=== PATIENT | male | born 1960 | race Caucasian/White ===

== ENCOUNTER → 2016-09-23 | Outpatient (CLI) | payer MEDICAID ==
[~2016-09-23] MED LIST: ASPI-587 PO; GADOBUTROL 7.5 MMOL/7.5 ML (GADAVIST) VIAL IV ONE; LISI20TA PO; SIMV20TA3 PO
--- OUTSIDE RECORDS SUMMARY | 2016-09-23 07:02 | XMS REPORT | Continuity of Care Document ---
Author Author [facility] Organization [facility] Address Unknown Phone Unavailable Care Team Providers Care Front Office Attendant Name Role Phone [facility] OF PCP Insurance Providers Payer Name Policy Number Subscriber Name [facility] [id number] Praveen Evans 18 Self / Same As Patient Advance Directives Directive Response Recorded Date/Time Advance Directives No 09/24/14 9:30am Health Care Power of Acid Polymerization Operator No 09/24/14 9:30am Organ Donor No 09/24/14 9:30am Resuscitation Status Full Code 09/24/14 9:30am Chief Complaint and Reason for Visit Chief Complaint TIA CHEST PAIN Reason for Visit Transient cerebral ischemia Chest pain Problems Medical Problems Problem Onset Date Status Transient cerebral ischemia Unknown Active Chest pain Unknown Active Medications Medication Dose Route Sig Days/Qty Instructions Order Date Discontinued Date Status Lisinopril (Zestril) 20 Mg PO 1800 08-04-14 #30 LAST FILLED 09/24/14 Active Simvastatin 20 Mg PO 1800 09/24/14 Active Aspirin 81 Mg PO DAILY 30 Days 09/26/14 Active Social History Social History Problem Response Recorded Date/Time Alcohol Use Past History 09/24/2014 9:30am Recreational Drug Use No 09/24/2014 9:30am Recent Foreign Travel No 09/24/2014 9:30am Recent Infectious Disease Exposure No 09/24/2014 9:30am Hospitalization with Isolation Denies 09/26/2014 4:00pm Smoking Status Current Everyday Smoker 09/24/2014 9:30am Query Response Start Date Stop Date Smoking Status Current Everyday Smoker Hospital Discharge Instructions Patient Instructions Physician Instructions Goal/Follow Up Appt: Follow up with Estephania Garcia APRN at [facility] in 1 week You will need an appt. with Neurologist to further evaluate your neurological findings from [place]. Discharge Diet: Low Fat/Low Cholesterol Plan of Care Discharge Date 09/26/14 1:08pm Disposition 30 STILL A PATIENT Instructions/Education Provided Chest Pain (DC) Chronic Hypertension (DC) Peripheral Neuropathy (GEN) Forms Provided PDI Medical Prescriptions See Medications Section Referrals ESTEPHANIA GARCIA APRN (Unspecified) 1 Week Address: [address] [place] [id number] Reason(s) for Referral: Follow up with Estephania Garcia APRN at [facility] in 1 week. JASMIN OSWALD MD (Unspecified) 10/10/14 Address: [address] [place] [address] [place] [address] Reason(s) for Referral: Friday, October 10, 2014 at 2:00 PM Functional Status Query Response Date Recorded Patient Orientation Person Place Time Situation September 26, 2014 4:00pm Comprehension Ability Understands Concepts September 26, 2014 11:00am Allergies, Adverse Reactions, Alerts Allergen Type Severity Reaction Status Last Updated pregabalin ([id number]) Allergy Unknown Active 09/24/14 Immunizations Name Given Type Date of Influenza Vaccine 09/25/14 Historical Tetanus Booster (TDap) More than 5yrs Historical influenza, split (incl. purified surface antigen) 09/25/14 Administered influenza, split (incl. purified surface antigen) 09/25/14 Administered Vital Signs Acute Vital Signs Vital Response Date/Time Temperature (Fahrenheit) 99.4 degrees F (97.6 - 99.5) Temperature (Calculated Celsius) 37.02695 degrees C (36.4 - 37.5) Temperature Source Temporal Pulse Rate (adult) 75 bpm (60 - 90) Respiratory Rate 20 bpm (12 - 24) O2 Sat by Pulse Oximetry 98 % (88 - 100) Blood Pressure 125/74 mm Hg Pain Pain Intensity 4 Pain Pain Intensity 7 Height (Feet) 6 feet Height (Inches) 0.00 inches Height (Calculated Centimeters) 182.709182 cm Weight (Pounds) 170 pounds Weight (Calculated Grams) 11581.704 gm Weight (Calculated Kilograms) 77.940299 kilograms Calculated BMI 23.05 Results Laboratory Results Test Name Result Units Flags Reference Collection Date/Time Result Date/ Time Comments White Blood Count 10.2 10^3/uL 4.3-11.0 09/24/2014 7:08am 09/24/2014 7: 18am Red Blood Count 4.97 10^6/uL 4.35-5.85 09/24/2014 7:08am 09/24/2014 7: 18am Hemoglobin 15.9 G/DL 13.3-17.7 09/24/2014 7:08am 09/24/2014 7:18am Hematocrit 45 % 40-54 09/24/2014 7:08am 09/24/2014 7:18am Mean Corpuscular Volume 90 FL 80-99 09/24/2014 7:08am 09/24/2014 7: 18am Mean Corpuscular Hemoglobin 32 PG 25-34 09/24/2014 7:08am 09/24/2014 7: 18am Mean Corpuscular Hemoglobin Concent 36 G/DL 32-36 09/24/2014 7:08am 7:18am Red Cell Distribution Width 12.9 % 10.0-14.5 09/24/2014 7:08am 2014 7:18am Platelet Count 168 10^3/uL 130-400 09/24/2014 7:08am 09/24/2014 7:18am Mean Platelet Volume 10.4 FL 7.4-10.4 09/24/2014 7:08am 09/24/2014 7: 18am Neutrophils (%) (Auto) 58 % 42-75 09/24/2014 7:08am 09/24/2014 7:18am Lymphocytes (%) (Auto) 30 % 12-44 09/24/2014 7:08am 09/24/2014 7:18am Monocytes (%) (Auto) 9 % 0-12 09/24/2014 7:08am 09/24/2014 7:18am Eosinophils (%) (Auto) 3 % 0-10 09/24/2014 7:08am 09/24/2014 7:18am Basophils (%) (Auto) 0 % 0-10 09/24/2014 7:08am 09/24/2014 7:18am Neutrophils # (Auto) 5.9 X 10^3 1.8-7.8 09/24/2014 7:0809/24/2014 7: 18am Lymphocytes # (Auto) 3.0 X 10^3 1.0-4.0 09/24/2014 7:08am 09/24/2014 7: 18am Monocytes # (Auto) 0.9 X 10^3 0.0-1.0 09/24/2014 7:0809/24/2014 7: 18am Eosinophils # (Auto) 0.3 10^3/uL 0.0-0.3 09/24/2014 7:08am 09/24/2014 7 :18am Basophils # (Auto) 0.0 10^3/uL 0.0-0.1 09/24/2014 7:08am 09/24/2014 7: 18am Prothrombin Time 12.4 SEC 12.2-14.7 09/24/2014 7:08am 09/24/2014 7: 32am INR Comment 0.9 0.8-1.4 09/24/2014 7:0809/24/2014 7:32am INTERPRETIVE DATA SUGGESTED THERAPEUTIC RANGE FOR INR'S: VENOUS THROMBOSIS, PULMONARY EMBOLISM, OR PREVENTION OF SYSTEMIC EMBOLISM (EG. IN ATRIAL FIBRILLATION): 2.0 - 3.0 MECHANICAL PROSTHETIC HEART VALVES: 2.5 - 3.5* *NOTE: INR'S UP TO 4.5 MAY BE NECESSARY IN SELECTED GROUPS OF HIGH RISK PATIENTS. [place] [place] [employer] CONSENSUS CONFERENCE ON ANTITHROMBOTIC THERAPY (2000). Activated Partial Thromboplast Time 32 SEC 24-35 09/24/2014 7:08 7:33am D-Dimer 0.42 UG/ML 0.00-0.49 09/24/2014 7:0809/24/2014 7:35am Urine Color YELLOW 09/24/2014 8:04am 09/24/2014 8:28am Urine Clarity CLEAR 09/24/2014 8:04am 09/24/2014 8:28am Urine pH 7 5-9 09/24/2014 8:04am 09/24/2014 8:28am Urine Specific [place] 1.010 * 1.016-1.022 09/24/2014 8:04am 2014 8:28am Urine Protein NEGATIVE NEGATIVE 09/24/2014 8:04am 09/24/2014 8:28am Urine Glucose (UA) NEGATIVE NEGATIVE 09/24/2014 8:04am 09/24/2014 8: 28am Urine RBC (Auto) NEGATIVE NEGATIVE 09/24/2014 8:04am 09/24/2014 8: 28am Urine Ketones NEGATIVE NEGATIVE 09/24/2014 8:04am 09/24/2014 8:28am Urine Nitrite NEGATIVE NEGATIVE 09/24/2014 8:04am 09/24/2014 8:28am Urine Bilirubin NEGATIVE NEGATIVE 09/24/2014 8:04am 09/24/2014 8: 28am Urine Urobilinogen NORMAL MG/DL NORMAL 09/24/2014 8:04am 09/24/2014 8: 28am Urine Leukocyte Esterase NEGATIVE NEGATIVE 09/24/2014 8:04am 2014 8:28am Urine RBC NONE /HPF 09/24/2014 8:04am 09/24/2014 8:28am Urine WBC NONE /HPF 09/24/2014 8:04am 09/24/2014 8:28am Urine Bacteria NONE /HPF 09/24/2014 8:04am 09/24/2014 8:28am Urine Squamous Epithelial Cells RARE /HPF 09/24/2014 8:04am 2014 8:28am Urine Crystals NONE /LPF 09/24/2014 8:04am 09/24/2014 8:28am Urine Casts NONE /LPF 09/24/2014 8:04am 09/24/2014 8:28am Urine Mucus NEGATIVE /LPF 09/24/2014 8:04am 09/24/2014 8:28am Urine Culture Indicated NO 09/24/2014 8:04am 09/24/2014 8:28am Sodium Level 142 MMOL/L 135-145 09/25/2014 4:21am 09/25/2014 4:51am Potassium Level 4.2 MMOL/L 3.6-5.0 09/25/2014 4:2109/25/2014 4:51am Chloride Level 109 MMOL/L H 98-107 09/25/2014 4:09/25/2014 4:51am Carbon Dioxide Level 26 MMOL/L 21-32 09/25/2014 4:09/25/2014 4: 51am Blood Urea Nitrogen 8 MG/DL 7-18 09/25/2014 4:09/25/2014 4:51am Creatinine 0.81 MG/DL 0.60-1.30 09/25/2014 4:09/25/2014 4:51am BUN/Creatinine Ratio 10 09/25/2014 4:09/25/2014 4:51am Estimat Glomerular Filtration Rate > 60 09/25/2014 4:2014 4:51am GFR INTERPRETIVE DATA UNITS FOR ESTIMATED GFR (eGFR): mL/min/1.73 M2 REFERENCE RANGE FOR ESTIMATED GFR (eGFR) eGFR NORMAL eGFR >60 MODERATELY DECREASED eGFR 30-59 SEVERLY DECREASED eGFR 15-29 KIDNEY FAILURE <15 (OR DIALYSIS) Glucose Level 84 MG/DL 70-105 09/25/2014 4:09/25/2014 4:51am Glucometer 94 MG/DL 70-110 09/24/2014 7:09/24/2014 7:35am Calcium Level 8.7 MG/DL 8.5-10.1 09/25/2014 4:09/25/2014 4:51am Total Bilirubin 0.3 MG/DL 0.1-1.0 09/25/2014 4:09/25/2014 4:51am Alkaline Phosphatase 81 U/L 40-136 09/25/2014 4:09/25/2014 4:51am Aspartate Amino Transf (AST/SGOT) 13 U/L 5-34 09/25/2014 4:2014 4:51am Alanine Aminotransferase (ALT/SGPT) 9 U/L 0-55 09/25/2014 4:2014 4:51am Troponin I < 0.30 NG/ML <0.30 09/24/2014 7:0809/24/2014 7:52am Troponin I < 0.30 NG/ML <0.30 09/24/2014 1:07pm 09/24/2014 1:39pm Total Protein 6.1 G/DL L 6.4-8.2 09/25/2014 4:21am 09/25/2014 4:51am Albumin 3.6 G/DL 3.2-4.5 09/25/2014 4:21am 09/25/2014 4:51am Procedures Procedure Status Date Provider(s) Tracing only of electrocardiogram completed 09/24/14 JF ROBERTSON MD Color Doppler echocardiography completed 09/24/14 ELVIS MANRIQUE Tracing only of electrocardiogram completed 09/26/14 CINDY MOYA MD Encounters Encounter Location Date/Time Discharged Inpatient Via [facility] 09/24/14 9:19am Recent Diagnosis Transient cerebral ischemia Chest pain
[2016-09-23 07:28] LABS: ANION GAP 11 MMOL/L (5-14); BLOOD UREA NITROGEN 13 MG/DL (7-18); BUN/CREATININE RATIO 15; CARBON DIOXIDE 25 MMOL/L (21-32); CHLORIDE 103 MMOL/L (98-107); CREATININE SERUM 0.88 MG/DL (0.60-1.30); GFR ESTIMATED > 60; GLUCOSE 97 MG/DL (70-105); POTASSIUM 3.9 MMOL/L (3.6-5.0); SODIUM 139 MMOL/L (135-145)
--- NOTE | 2016-09-23 14:37 | Diagnostic Imaging Report ---
PROCEDURE: MR imaging of the brain with and without contrast. TECHNIQUE: Multiplanar, multisequence MR imaging of the brain was performed with and without contrast. INDICATION: Peripheral neuropathy. 7 mL of Gadovist is administered intravenously. FINDINGS: There is no diffusion restriction to suggest an acute infarct or other diffusion abnormality. Similar to 09/25/2014 exam, there are mild frontoparietal brain atrophy changes slightly more than expected for the patient's age. This does not appear to have changed from the previous exam, however, perhaps related to normal variation. There are stable mild periventricular deep white matter T2 hyperintense lesions subcentimeter in size with no associated mass effect or contrast enhancement. This is suggestive of chronic microvascular ischemic changes. There is no enhancing mass. There is no hydrocephalus. No extra-axial fluid collection seen. The central vascular flow voids appear grossly unremarkable. The internal auditory canals and inner ear structures appear unremarkable. The pituitary gland is normal in size. No hypothalamic mass. No pineal region mass. 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 The foramen magnum and visualized portions of the upper cervical canal are widely patent. There is minimal mucosal thickening along the ethmoidal air cells and mild mucosal thickening is the nasal cavity. IMPRESSION: 1. Nonspecific subcentimeter periventricular and deep white matter T2 hyperintense lesions without enhancement unchanged from 2015 exam, which may relate to early manifestation of chronic microvascular ischemic changes. No acute infarct. No enhancing mass. 2. Unchanged mild atrophy of the frontoparietal region bilaterally, slightly more than expected for the patient's age. This could be a normal variant, however. 3. 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 Dictated by: Dictated on workstation # [id number]
== END ==
LOC: RAD 06:58
PROVIDERS: ATTEND Nurse Practitioner Community Health
DX: G45.9 Transient cerebral ischemic attack, unspecified (principal)
CPT/HCPCS: 36415; 70553; 80048

== ENCOUNTER → 2017-02-06 | Outpatient (CLI) | payer MEDICAID ==
[~2017-02-06] MED LIST changes: -GADOBUTROL 7.5 MMOL/7.5 ML (GADAVIST) VIAL IV ONE
--- NOTE | 2017-02-06 12:52 | Diagnostic Imaging Report ---
PROCEDURE: US Thyroid. TECHNIQUE: Multiple real-time grayscale images were obtained of the thyroid in various projections. INDICATION: Enlarged thyroid gland on physical exam. COMPARISON: None. DISCUSSION: The thyroid gland appears normal in echotexture and size bilaterally with normal color Doppler blood flow. The right thyroid measures 4.5 x 2.2 x 1.6 cm. Left thyroid measures 4.2 x 1.8 x 1.6 cm. No discrete nodule is identified. No abnormal adjacent lymph nodes identified. IMPRESSION: 1. Normal sonographic appearance of the thyroid gland. Dictated by: Dictated on workstation # [id number]
== END ==
LOC: RAD 12:28
PROVIDERS: ATTEND Nurse Practitioner Community Health
DX: E04.9 Nontoxic goiter, unspecified (principal)
CPT/HCPCS: 76536

== ENCOUNTER 2018-10-09 06:21 | Outpatient (CLI) | payer MEDICAID ==
[~2018-10-09] VITALS: Ht 182.9 cm; Wt 77.1 kg
[2018-10-09] MEDS ORDERED: IBUP-1780 PO (13:53)
[2018-10-09] MEDS ORDERED: FENT-64 TD (13:53)
[2018-10-09] MEDS ORDERED: TEMA15CA6 PO (13:53)
[2018-10-09] MEDS ORDERED: TIZA4CAP8 PO (13:53)
[2018-10-09] MEDS ORDERED: RT-ALBUINH IH (13:53)
== END 2018-10-09 13:57 | disposition home or self-care (01) ==
LOC: PREOP 06:21
PROVIDERS: ATTEND Surgery
DX: Z01.818 Encounter for other preprocedural examination (principal)

== ENCOUNTER 2018-10-16 08:45 | Day surgery (SDC) | payer MEDICAID ==
[~2018-10-16] VITALS: Ht 182.9 cm; Wt 77.1 kg
[~2018-10-16 08:45] MED LIST changes: +FENT-64 TD; +IBUP-1780 PO; +RT-ALBUINH IH; +TEMA15CA6 PO; +TIZA4CAP8 PO
[2018-10-16] MEDS ORDERED: LACTATED RINGERS 1,000 ML IV ONE (08:49)
[2018-10-16] MEDS ORDERED: LACTATED RINGERS 1,000 ML IV STA (08:52)
[2018-10-16 08:55] VITALS: BP 175/71
--- OUTSIDE RECORDS SUMMARY | 2018-10-16 08:57 | XMS REPORT ---
Author Author RADHIKA CERVANTES Organization [facility] Address [address] [place] [address] Care Team Providers Care Bundle Clerk Name Role Phone RADHIKA CERVANTES Unavailable PROBLEMS Type Condition ICD9-CM Code QAA58-DS Code Onset Dates Condition Status SNOMED Code Problem Chronic pain G89.29 Active 75717412 Problem Primary insomnia F51.01 Active 1342345 Problem Insomnia G47.00 Active 140710625 Problem Other emphysema J43.8 Active 33607323 Problem Benign prostatic hyperplasia with lower urinary tract symptoms N40.1 Active 205480384 Problem Goiter E04.9 Active 4850993 Problem Transient cerebral ischemia, unspecified type G45.9 Active 403347206 Problem Numbness of left hand R20.0 Active 943385287 Problem Gastro-esophageal reflux disease without esophagitis K21.9 Active 121226169 Problem Other headache syndrome G44.89 Active 074999644 Problem Glaucoma of both eyes, unspecified glaucoma H40.9 Active 49560028 Problem Eye exam, routine Z01.00 Active 674624262 Problem Other insomnia G47.09 Active 473625750 Problem Personal history of transient ischemic attack (TIA), 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 Active 085694741 Problem Hyperlipidemia E78.5 Active 84318713 Problem Polyneuropathy G62.9 Active 47722588 Problem Leg cramps R25.2 Active 130693371 Problem Essential (primary) hypertension I10 Active 62301590 Problem Stye H00.019 Active 5895692 ALLERGIES Substance Reaction Event Type Date Status Lyrica Leg swelling Drug Allergy Jun, Active ENCOUNTERS Encounter Location Date Diagnosis [facility] [address] [facility] [id number] [address] Jul, [facility] [address] [facility] [id number] [address] Jun, Enlarged prostate with lower urinary tract symptoms N40.1 ; Anuria R34 ; Leg cramps R25.2 ; Encounter for immunization Z23 ; Other chronic pain G89.29 ; Primary insomnia F51.01 and Other emphysema J43.8 [facility] [address] [place] [id number] [place] [address] 23953- 9603 May, Chronic pain G89.29 [place] [address] [address]- [address] Apr, Chronic pain G89.29 [place] [address] [address]64- 3609 Mar, Chronic pain G89.29 [place] [address] 25526- 8753 Feb, Chronic pain G89.29 [place] [address] 45[address]- 6883 Jan, Polyneuropathy G62.9 ; Chronic pain G89.29 ; Essential ( primary) hypertension I10 ; Goiter E04.9 ; Gastro-esophageal reflux disease without esophagitis K21.9 ; Hyperlipidemia E78.5 ; Benign prostatic hyperplasia with lower urinary tract symptoms N40.1 and Other retention of urine R33.8 [place] [address] [place] [id number] [place] [address] 71628- 4442 Jan, Chronic pain G89.29 [place] [address] [address]17- 2867 Dec, Chronic pain G89.29 [place] [address] 09971- 5804 November, Chronic pain G89.29 [place] [address] 38071- 4857 Oct, Chronic pain G89.29 [place] [address] 79860- 5647 Oct, Chronic pain G89.29 [facility] [id number] [place] [address] 13838- 4687 Sep, Chronic pain G89.29 [facility] [id number] [place] [address] Sep, Polyneuropathy G62.9 ; Chronic pain G89.29 and Gastro- esophageal reflux disease without esophagitis K21.9 [facility] [address] [id number] [place] [address] 87055- 9674 Sep, Chronic pain G89.29 [facility] [id number] [place] [address] 72289- 6391 Jul, [place] [address] [place] [id number] [place] [address] 05840- 6738 Jul, Chronic pain G89.29 ; Polyneuropathy G62.9 and Numbness of left hand R20.0 [place] [address] [place] [id number] [place] [address] 80515- 6622 Jul, Chronic pain G89.29 ; Polyneuropathy G62.9 ; Gastro- esophageal reflux disease without esophagitis K21.9 ; Numbness of left hand R20.0 and Primary insomnia F51.01 [facility] [id number] [place] [address] 91340- 4639 Jul, Chronic pain G89.29 [place] [address] [place] [id number] [place] [address] 77110- 5281 Jun, Chronic pain G89.29 [facility] [id number] [place] [address] 74456- 6928 May, Chronic pain G89.29 [facility] [id number] [place] [address] 35522- 9593 Apr, Chronic pain G89.29 [facility] [id number] [place] [address] 83847- 3488 Apr, Chronic pain G89.29 and Polyneuropathy G62.9 [facility] [id number] [place] [address] 17392 2543 Mar, Chronic pain G89.29 [facility] [address] [address] 2546 Feb, Chronic pain G89.29 [facility] [id number] [place] [address] 85686 2546 Feb, Chronic pain G89.29 [facility] [address] [address] 2546 Jan, Goiter E04.9 [facility] [address] 66339- 9239 Jan, Chronic pain G89.29 ; Hyperlipidemia E78.5 ; Essential ( primary) hypertension I10 ; Anuria R34 and Goiter E04.9 [facility] [address] 79521- 1156 Jan, Chronic pain G89.29 [facility] [id number] [place] [address] 90147- 2244 November, Chronic pain G89.29 [facility] [id number] [place] [address] 16872 2549 November, [facility] [id number] [place] [address] 04461- 2095 Oct, Chronic pain G89.29 [facility] [id number] [place] [address] 98144 2540 Oct, Chronic pain G89.29 and Primary insomnia F51.01 [facility] [address] 69174- 8681 Sep, Chronic pain G89.29 [facility] [id number] [place] [address] 63271 2547 Sep, [facility] [address] [address] 1990 Sep, Chronic pain G89.29 and Primary insomnia F51.01 [place] [address] [place] [id number] [place] [address] 17353- 7759 Sep, [place] [address] [place] [id number] [place] [address] 80958- 0610 Sep, Transient cerebral ischemia, unspecified type G45.9 ; Acute midline low back pain without sciatica M54.5 and Seborrheic keratosis L82.1 [place] [address] [place] [id number] [place] [address] 82630- 1065 Sep, Chronic pain G89.29 [place] [address] 64619- 5433 Aug, Chronic pain G89.29 and Primary insomnia F51.01 [place] [address] [place] [id number] [place] [address] 13000- 3898 Aug, Chronic pain G89.29 [place] [address] [place] [id number] [place] [address] 94072- 2248 Jul, Chronic pain G89.29 and Primary insomnia F51.01 [place] [address] [place] [id number] [place] [address] 48255- 5458 Jul, Chronic pain G89.29 [place] [address] [place] [id number] [place] [address] 56788- 7649 Jun, Chronic pain G89.29 ; Essential (primary) hypertension I10 ; Polyneuropathy G62.9 ; Drug-induced constipation K59.03 and Primary insomnia F51.01 [place] [address] [place] [id number] [place] [address] 07281- 2955 Jun, Chronic pain G89.29 [place] [address] [place] [id number] [place] [address] 69028- 7059 Jun, [place] [address] [place] [id number] [place] [address] 58958- 5616 Jun, Insomnia G47.00 ; Chronic pain G89.29 and Seborrheic keratosis L82.1 [facility] [id number] [place] [address] 08542- 9324 Apr, Chronic pain G89.29 [facility] [id number] [place] [address] 73597- 5706 Mar, Chronic pain G89.29 [facility] [address] 77328- 7065 Feb, Chronic pain G89.29 [facility] [address] [address] [id number] [place] [address] 83202- 9896 Jan, Chronic pain G89.29 [facility] [address] [id number] [place] [address] 12691- 5780 Dec, [place] [address] 96827- 4362 Dec, Chronic pain G89.29 [facility] [id number] [place] [address] 91874- 5545 Dec, Other chronic pain G89.29 ; Hyperlipidemia E78.5 and Polyneuropathy G62.9 [place] [address] [id number] [place] [address] 07504- 6627 Dec, [place] [address] [address] [id number] [place] [address] 30100- 4797 November, Chronic pain G89.29 [facility] [address] [id number] [place] [address] 51872- 6499 November, [place] [address] [address] [id number] [place] [address] 52412- 7052 November, Chronic pain G89.29 ; Stye H00.019 ; Insomnia G47.00 ; Leg cramps R25.2 and GERD (gastroesophageal reflux disease) K21.9 [place] [address] [place] [id number] [place] [address] 86928- 0678 Oct, Other chronic pain G89.29 [facility] [id number] [place] [address] 39690- 4769 Oct, Hyperlipidemia E78.5 [facility] [id number] [place] [address] 31 Sep, 2015 Essential (primary) hypertension I10 [facility] [id number] [place] [address] 24140- 5757 30 Sep, 2015 Other chronic pain G89.29 ; Polyneuropathy G62.9 ; Essential (primary) hypertension I10 and Personal history of transient ischemic attack (TIA), 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 [facility] [id number] [place] [address] 14363- 9731 Sep, [facility] [id number] [place] [address] 50683- 9062 Sep, [facility] [id number] [place] [address] 62053- 3682 Aug, [facility] [id number] [place] [address] 21906- 9946 Jul, [facility] [id number] [place] [address] 93181- 0506 Jul, [facility] [id number] [place] [address] 56954- 3135 Jun, Other chronic pain G89.29 and Gastroesophageal reflux disease, esophagitis presence not specified K21.9 [facility] [id number] [place] [address] 30332- 3483 May, Chronic pain syndrome 338.4 and Polyneuropathy G62.9 [facility] [id number] [place] [address] 95297- 7557 May, Enlarged prostate with lower urinary tract symptoms N40.1 ; Other retention of urine R33.8 and Peripheral polyneuropathy G62.9 [facility] [id number] [place] [address] 20606- 3156 Apr, [facility] [address] [address]- 2026 Mar, [facility] [address] [place] [address] 51632- 5396 Mar, Neuropathy 355.9 and Chronic pain 338.29 [facility] [id number] [place] [address] 79845- 2897 Feb, Neuropathy 355.9 and TIA (transient ischemic attack) 435.9 [facility] [address] [place] [address] 40793- 4590 Dec, Neuropathy 355.9 ; Chronic pain 338.29 ; Restless legs 333.94 ; Seborrheic keratoses 702.19 and GERD (gastroesophageal reflux disease) 530.81 [facility] [id number] [place] [address] 22957- 2753 Dec, [facility] [id number] [address]- 0194 Oct, [facility] [address] [place] [address] 50765- 6996 Oct, [facility] [address] Sep, [facility] [address] [address]- 2437 Sep, [facility] [address] [address]- 7042 Sep, [facility] [address] [place] [address]- 7712 Sep, [facility] [address] [place] [address]- [address] Aug, [facility] [address] [place] [address]- 3296 Aug, [facility] [id number] [address]- 1746 Jul, [facility] [id number] [address]- 4771 Jul, [facility] [address] [place] [address]- 9258 Jul, [facility] [address] [address]- 9761 Jul, [facility] [address] [address]- 0030 Jul, [facility] [address] [place] [address] 05306- 9154 Jul, [facility] [address] [place] [address]- 4468 Jul, [facility] [address] [place] [address]- 8614 Jul, [facility] [address] [address]- 4069 Jun, [facility] [address] [address]- 0734 Jun, IMMUNIZATIONS Vaccine Route Administration Date Status FLULAVAL QUAD 0.5ML (6 MO AND UP) 2017 IM Intramuscular Jun 11, 2018 Administered SOCIAL HISTORY Never Assessed REASON FOR VISIT Pain management (chronic) KEILA Rucker PLAN OF CARE Activity Details Follow Up 4 Weeks Reason:pain mgmt VITAL SIGNS Height 73 in 2018-06-11 Weight 172.6 lbs 2018-06-11 Temperature 98.2 degrees Fahrenheit 2018-06-11 Heart Rate 88 bpm 2018-06-11 Respiratory Rate 20 2018-06-11 BMI 22.77 kg/m2 2018-06-11 Blood pressure systolic 164 mmHg 2018-06-11 Blood pressure diastolic 82 mmHg 2018-06-11 MEDICATIONS Medication Instructions Dosage Frequency Start Date End Date Duration Status Omeprazole 20 mg TAKE ONE CAPSULE BY MOUTH ONCE DAILY 90 Active Tizanidine HCl 6 MG Orally Three times a day 1 capsule as needed 8h Jun 28 days Active Wrist Splint/Cock-Up/Left L - as directed Jul, lifetime Not-Taking Temazepam 15 MG Orally Once a day 1 capsule at bedtime as needed 24h Jun 28 days Active Rollator Wheeled walker with seat for use while ambulating Jul, lifetime Active Ventolin HFA 108 (90 Base) MCG/ACT Inhalation every 6 hrs 2 puffs as needed 6h Jun, Active Ibuprofen 800 MG Orally Three times a day 1 tablet with food or milk as needed 8h Jun, 28 days Active RESULTS No Results PROCEDURES Procedure Date Ordered Result Body Site FLULAVAL QUAD 0.5ML (6 MO AND UP) 2017Jun 11, 2018 SINGLE IMMUNIZATION ADMIN Jun 11, 2018 INSTRUCTIONS MEDICATIONS ADMINISTERED No Known Medications MEDICAL (GENERAL) HISTORY Type Description Date Medical History reported hx TIA/CVA - given TPA 08/2013 - MRI (08/2013, 09/2014 ) has only shown small vessel disease Medical History hx of pelvic fracture 2012 Medical History hypertension Medical History gastroesophageal reflux disease (GERD) Medical History skin cancer - hx melanoma R shoulder; basal cell carcinoma 2009 Medical History reported hx seizures - not confirmed during neuro consult Medical History chronic pain secondary to neuropathy Medical History double vision has occular changes in left eye per [facility] Medical History Peripheral Neuropathy Medical History hx of etoh abuse Medical History BPH Medical History hx fatty liver Medical History hx of vitamin deficiency (B12, D) Medical History Carpal tunnel syndrome - severe L Medical History COPD Medical History 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
--- OUTSIDE RECORDS SUMMARY | 2018-10-16 08:57 | XMS REPORT ---
Author Author RADHIKA CERVANTES [facility] Address [address] [place] [address] Care Team Providers Care Representative Personal Service Name Role Phone RADHIKA CERVANTES Unavailable PROBLEMS Type Condition ICD9-CM Code GUT49-IC Code Onset Dates Condition Status SNOMED Code Problem Stye H00.019 Active 5445847 Problem Insomnia G47.00 Active 812778597 Problem Chronic pain G89.29 Active 72107090 Problem Benign prostatic hyperplasia with lower urinary tract symptoms N40.1 Active 900165194 Problem Numbness of left hand R20.0 Active 241459753 Problem Transient cerebral ischemia, unspecified type G45.9 Active 941011285 Problem Primary insomnia F51.01 Active 4551675 Problem Gastro-esophageal reflux disease without esophagitis K21.9 Active 680041034 Problem Goiter E04.9 Active 9687202 Problem Other insomnia G47.09 Active 614970736 Problem Other headache syndrome G44.89 Active 981265619 Problem Eye exam, routine Z01.00 Active 311240517 Problem Essential (primary) hypertension I10 Active 39149722 Problem Personal history of transient ischemic attack (TIA), 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 Active 468171875 Problem Glaucoma of both eyes, unspecified glaucoma H40.9 Active 25384930 Problem Hyperlipidemia E78.5 Active 41613824 Problem Polyneuropathy G62.9 Active 86642757 Problem Leg cramps R25.2 Active 079905893 ALLERGIES No Information ENCOUNTERS Encounter Location Date Diagnosis [facility] [id number] [address] Mar, Chronic pain G89.29 [facility] [id number], [place] [address] Feb, Chronic pain G89.29 [facility] [id number] [place] [address]85- 1088 Jan, Polyneuropathy G62.9 ; Chronic pain G89.29 ; Essential ( primary) hypertension I10 ; Goiter E04.9 ; Gastro-esophageal reflux disease without esophagitis K21.9 ; Hyperlipidemia E78.5 ; Benign prostatic hyperplasia with lower urinary tract symptoms N40.1 and Other retention of urine R33.8 [place] [address] [address]- [address] Jan, Chronic pain G89.29 [place] [address] [address]- [address]60 Dec, Chronic pain G89.29 [place] [address] 94[address]- 2898 November, Chronic pain G89.29 [place] [address] [address]- 6121 Oct, Chronic pain G89.29 [place] [address] 7[address]- 4000 Oct, Chronic pain G89.29 [place] [address] [address]73- 1492 Sep, Chronic pain G89.29 [place] [address] [address]- 5418 Sep, Polyneuropathy G62.9 ; Chronic pain G89.29 and Gastro- esophageal reflux disease without esophagitis K21.9 [place] [id number] [place] [address] 95177- 8950 Sep, Chronic pain G89.29 [place] [address] 8[address]81- 8394 Jul, [place] [id number] [place] [address] 05813- 4714 Jul, Chronic pain G89.29 ; Polyneuropathy G62.9 and Numbness of left hand R20.0 [place] [id number] [place] [address] 97699- 2692 Jul, Chronic pain G89.29 ; Polyneuropathy G62.9 ; Gastro- esophageal reflux disease without esophagitis K21.9 ; Numbness of left hand R20.0 and Primary insomnia F51.01 [place] [address] [address]- [address] Jul, Chronic pain G89.29 [place] [address] 82242- 9899 Jun, Chronic pain G89.29 [place] [address] [address]- 2003 May, Chronic pain G89.29 [place] [address] [address]- 7349 Apr, Chronic pain G89.29 [place] [address] [address]- [address]363 Apr, Chronic pain G89.29 and Polyneuropathy G62.9 [place] [address] 983504- 9093 Mar, Chronic pain G89.29 [place] [address] 9[address]- 9575 Feb, Chronic pain G89.29 [place] [address] [id number]- 4935 Feb, Chronic pain G89.29 [place] [address] [address]483- 8481 Jan, Goiter E04.9 [place] [address] [id number]- 5871 Jan, Chronic pain G89.29 ; Hyperlipidemia E78.5 ; Essential ( primary) hypertension I10 ; Anuria R34 and Goiter E04.9 [place] [id number] [address] Jan, Chronic pain G89.29 [facility] [id number] [place] [address] 92869- 2437 November, Chronic pain G89.29 [facility] [id number] [place] [address] 75346- 0942 November, [facility] [id number] [place] [address] 12779- 6883 Oct, Chronic pain G89.29 [facility] [id number] [place] [address] 86863- 5257 Oct, Chronic pain G89.29 and Primary insomnia F51.01 [facility] [id number] [place] [address] 63621- 2360 Sep, Chronic pain G89.29 [facility] [id number] [place] [address] 44737- 6567 Sep, [facility] [id number] [place] [address] 47557- 0725 Sep, Chronic pain G89.29 and Primary insomnia F51.01 [facility] [id number] [place] [address] 38881- 3265 Sep, [facility] [id number] [place] [address] 78946- 7681 Sep, Transient cerebral ischemia, unspecified type G45.9 ; Acute midline low back pain without sciatica M54.5 and Seborrheic keratosis L82.1 [facility] [id number] [place] [address] 54743- 8741 Sep, Chronic pain G89.29 [facility] [id number] [place] [address] 86823- 3150 Aug, Chronic pain G89.29 and Primary insomnia F51.01 [facility] [id number] [place] [address] 83767- 0760 Aug, Chronic pain G89.29 [facility] [id number] [place] [address] 06999- 9640 Jul, Chronic pain G89.29 and Primary insomnia F51.01 [facility] [id number] [place] [address] 08999- 4385 Jul, Chronic pain G89.29 [facility] [address] [address]- 9810 Jun, Chronic pain G89.29 ; Essential (primary) hypertension I10 ; Polyneuropathy G62.9 ; Drug-induced constipation K59.03 and Primary insomnia F51.01 [facility] [id number] [place] [address] 60354- 6085 Jun, Chronic pain G89.29 [place] [id number] [place] [address] 90354- 5180 Jun, [facility] [id number] [place] [address] 54328- 1235 Jun, Insomnia G47.00 ; Chronic pain G89.29 and Seborrheic keratosis L82.1 [facility] [id number] [place] [address] 89352- 0385 Apr, Chronic pain G89.29 [place] [id number] [place] [address] 93648- 8703 Mar, Chronic pain G89.29 [facility] [id number] [place] [address] 25778- 3352 Feb, Chronic pain G89.29 [facility] [id number] [place] [address] 34183- 8970 Jan, Chronic pain G89.29 [facility] [id number] [place] [address] 44597- 3591 Dec, [facility] [address] 74329- 5808 Dec, Chronic pain G89.29 [place] [id number] [place] [address] 01693- 6104 Dec, Other chronic pain G89.29 ; Hyperlipidemia E78.5 and Polyneuropathy G62.9 [place] [id number] [place] [address] 93157- 4473 Dec, [place] [id number] [place] [address] 44561- 8478 November, Chronic pain G89.29 [place] [id number] [place] [address] 65003- 5314 November, [place] [id number] [place] [address] 11539- 8701 November, Chronic pain G89.29 ; Stye H00.019 ; Insomnia G47.00 ; Leg cramps R25.2 and GERD (gastroesophageal reflux disease) K21.9 [place] [id number] [place] [address] 43536- 2012 Oct, Other chronic pain G89.29 [place] [id number] [place] [address] 95017- 1313 Oct, Hyperlipidemia E78.5 [place] [id number] [place] [address] 74788- 7174 Sep, Essential (primary) hypertension I10 [place] [id number] [place] [address] 30791- 8030 30 Sep, 2015 Other chronic pain G89.29 ; Polyneuropathy G62.9 ; Essential (primary) hypertension I10 and Personal history of transient ischemic attack (TIA), 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 [place] [id number] [place] [address] 59127- 1959 Sep, [place] [id number] [place] [address] 73295- 3207 Sep, [facility] [id number] [place] [address] 94954- 4753 Aug, [facility] [id number] [place] [address] 055885- 9103 Jul, [facility] [id number] [place] [address] 831178- 4363 Jul, [place] [id number] [place] [address] 033186- 3646 Jun, Other chronic pain G89.29 and Gastroesophageal reflux disease, esophagitis presence not specified K21.9 [place] [address] 863708- 8918 May, Chronic pain syndrome 338.4 and Polyneuropathy G62.9 [place] [id number] [place] [address] 16923- 1993 May, Enlarged prostate with lower urinary tract symptoms N40.1 ; Other retention of urine R33.8 and Peripheral polyneuropathy G62.9 [place] [id number] [place] [address] 36793- 4091 Apr, [place] [id number] [place] [address] 36163- 6390 Mar, [place] [id number] [place] [address] 62769- 9601 Mar, Neuropathy 355.9 and Chronic pain 338.29 [place] [id number] [place] [address] 01079- 4358 Feb, Neuropathy 355.9 and TIA (transient ischemic attack) 435.9 [place] [id number] [place] [address] 127680- 7040 Dec, Neuropathy 355.9 ; Chronic pain 338.29 ; Restless legs 333.94 ; Seborrheic keratoses 702.19 and GERD (gastroesophageal reflux disease) 530.81 [place] [id number] [place] [address] 74267- 1657 Dec, [facility] [place] [facility] [address] [id number] [place] [address]- 9809 Oct, [facility] [place] [facility] [address] [id number] [address]- 0410 Oct, [facility] [place] [facility] [address] [id number] [place] [address]- 5093 Sep, [facility] [place] [facility] [address] [id number] [place] [address]- 0415 Sep, [facility] [place] [facility] [address] [id number] [place] [address]- 7776 Sep, [facility] [place] [facility] [address] [id number] [place] [address]- 7201 Sep, [facility] [place] [facility] [address] [id number], [place] [address]- 9800 Aug, [facility] [place] [facility] [address] [id number] [place] [address]- 4621 Aug, [facility] [place] [facility] [address] [id number] [place] [address]- 7402 Jul, [facility] [place] [facility] [address] [id number] [place] [address]- 1667 Jul, [facility] [place] [facility] [address] [id number], [place] [address]- 8294 Jul, [facility] [place] [facility] [address] [id number], [place] [address]- 3828 Jul, [facility] [place] [facility] [address] [id number], [place] [address]- 9636 Jul, [facility] [place] [facility] [address] [id number], [place] [address]- 0844 Jul, [facility] [place] [facility] [address] [facility] [id number] [address]- 0139 Jul, [facility] [place] [facility] [address] [facility] [id number] [place] [address]- 6634 Jul, [facility] [address] [facility] [id number] [place] [address]- 4808 Jun, [facility] [address] [facility] [id number] [place] [address]75 Jun, IMMUNIZATIONS No Known Immunizations SOCIAL HISTORY Never Assessed REASON FOR VISIT Controlled Med Refill 03/29/18 PLAN OF CARE VITAL SIGNS MEDICATIONS Medication Instructions Dosage Frequency Start Date End Date Duration Status Fentanyl 37.5 MCG/HR Transdermal Change every 72 hours 1 patch to skin Mar, 28 days Active Hydrocodone-Acetaminophen 10-325 MG Orally twice a day 1 tablet as needed 12h Mar, 28 days Active RESULTS No Results PROCEDURES No Known procedures INSTRUCTIONS MEDICATIONS ADMINISTERED No Known Medications MEDICAL [...]
--- OUTSIDE RECORDS SUMMARY | 2018-10-16 08:57 | XMS REPORT ---
Author Author RADHIKA CERVANTES Organization [facility] Address [address] [place] [address] Care Team Providers Care Dish Up Person Name Role Phone RADHIKA CERVANTES Unavailable PROBLEMS Type Condition ICD9-CM Code [id number] Code Onset Dates Condition Status SNOMED Code Problem Stye H00.019 Active 3300164 Problem Insomnia G47.00 Active 554456856 Problem Chronic pain G89.29 Active 04785630 Problem Benign prostatic hyperplasia with lower urinary tract symptoms N40.1 Active 831205317 Problem Numbness of left hand R20.0 Active 749993233 Problem Transient cerebral ischemia, unspecified type G45.9 Active 155448642 Problem Primary insomnia F51.01 Active 6111551 Problem Gastro-esophageal reflux disease without esophagitis K21.9 Active 681723811 Problem Goiter E04.9 Active 9545226 Problem Other insomnia G47.09 Active 081378235 Problem Other headache syndrome G44.89 Active 330190410 Problem Eye exam, routine Z01.00 Active 251241721 Problem Essential (primary) hypertension I10 Active 31891550 Problem Personal history of transient ischemic attack (TIA), 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 Active 438694260 Problem Glaucoma of both eyes, unspecified glaucoma H40.9 Active 38487244 Problem Hyperlipidemia E78.5 Active 39322826 Problem Polyneuropathy G62.9 Active 54905222 Problem Leg cramps R25.2 Active 994625890 ALLERGIES No Information ENCOUNTERS Encounter Location Date Diagnosis [facility] [id number] [address] Jun, [facility] [address] [address] May, Chronic pain G89.29 [facility] [id number] [place] [address] 73684- 6443 Apr, Chronic pain G89.29 [facility] [id number] [place] [address] 29531- 3576 Mar, Chronic pain G89.29 [facility] [id number] [place] [address] 76865- 7862 Feb, Chronic pain G89.29 [facility] [id number] [place] [address] 09786- 5296 Jan, Polyneuropathy G62.9 ; Chronic pain G89.29 ; Essential ( primary) hypertension I10 ; Goiter E04.9 ; Gastro-esophageal reflux disease without esophagitis K21.9 ; Hyperlipidemia E78.5 ; Benign prostatic hyperplasia with lower urinary tract symptoms N40.1 and Other retention of urine R33.8 [facility] [id number] [place] [address] 54259- 1028 Jan, Chronic pain G89.29 [facility] [id number] [place] [address] 02948- 5005 Dec, Chronic pain G89.29 [facility] [id number] [place] [address] 65335- 7190 November, Chronic pain G89.29 [facility] [id number] [place] [address] 38568- 8932 Oct, Chronic pain G89.29 [facility] [id number] [place] [address] 07838- 1363 Oct, Chronic pain G89.29 [facility] [id number] [place] [address] 17627- 2217 Sep, Chronic pain G89.29 [facility] [id number] [place] [address] 77986- 4114 Sep, Polyneuropathy G62.9 ; Chronic pain G89.29 and Gastro- esophageal reflux disease without esophagitis K21.9 [facility] [id number] [place] [address] 68889- 9192 Sep, Chronic pain G89.29 [facility] [address] [address]- 3223 Jul, [facility] [address] 90885- 1491 Jul, Chronic pain G89.29 ; Polyneuropathy G62.9 and Numbness of left hand R20.0 [facility] [address] 93000- 0791 Jul, Chronic pain G89.29 ; Polyneuropathy G62.9 ; Gastro- esophageal reflux disease without esophagitis K21.9 ; Numbness of left hand R20.0 and Primary insomnia F51.01 [facility] [id number] [place] [address] 72125- 0839 Jul, Chronic pain G89.29 [facility] [address] 81101- 7625 Jun, Chronic pain G89.29 [facility] [id number] [place] [address] 66498- 4120 May, Chronic pain G89.29 [facility] [id number] [place] [address] 36067- 1928 Apr, Chronic pain G89.29 [facility] [id number] [place] [address] 50487- 0679 Apr, Chronic pain G89.29 and Polyneuropathy G62.9 [facility] [id number] [place] [address] 39908- 6318 Mar, Chronic pain G89.29 [facility] [address] 23489- 7892 Feb, Chronic pain G89.29 [facility] [id number] [place] [address] 26853- 3084 Feb, Chronic pain G89.29 [facility] [id number] [place] [address] 35583 2546 Jan, Goiter E04.9 [facility] [id number] [place] [address] 06617 2546 Jan, Chronic pain G89.29 ; Hyperlipidemia E78.5 ; Essential ( primary) hypertension I10 ; Anuria R34 and Goiter E04.9 [facility] [address] 43696 2546 Jan, Chronic pain G89.29 [facility] [id number] [place] [address] 29996 2546 November, Chronic pain G89.29 [facility] [id number] [place] [address] 71895 2546 November, [facility] [address] 50067- 6908 Oct, Chronic pain G89.29 [facility] [id number] [place] [address] 16365 2549 Oct, Chronic pain G89.29 and Primary insomnia F51.01 [facility] [id number] [place] [address] 03422 2546 Sep, Chronic pain G89.29 [facility] [id number] [place] [address] 24275 2546 Sep, [facility] [id number] [place] [address] 48418 2546 Sep, Chronic pain G89.29 and Primary insomnia F51.01 [facility] [address] 53256- 8836 Sep, [facility] [id number] [place] [address] 94996 2546 Sep, Transient cerebral ischemia, unspecified type G45.9 ; Acute midline low back pain without sciatica M54.5 and Seborrheic keratosis L82.1 [facility] [id number] [place] [address] 38994- 5042 Sep, Chronic pain G89.29 [facility] [id number] [place] [address] 35810- 7297 Aug, Chronic pain G89.29 and Primary insomnia F51.01 [facility] [address] 47520- 7210 Aug, Chronic pain G89.29 [facility] [id number] [place] [address] 46473- 4829 Jul, Chronic pain G89.29 and Primary insomnia F51.01 [facility] [id number] [place] [address] 68455- 3134 Jul, Chronic pain G89.29 [facility] [address] 94810- 0440 Jun, Chronic pain G89.29 ; Essential (primary) hypertension I10 ; Polyneuropathy G62.9 ; Drug-induced constipation K59.03 and Primary insomnia F51.01 [facility] [id number] [place] [address] 18622- 2199 Jun, Chronic pain G89.29 [facility] [id number] [place] [address] 69655- 8968 Jun, [facility] [address] 66288- 5133 Jun, Insomnia G47.00 ; Chronic pain G89.29 and Seborrheic keratosis L82.1 [facility] [address] 16137- 5182 Apr, Chronic pain G89.29 [facility] [id number] [place] [address] 34906- 9959 Mar, Chronic pain G89.29 [facility] [address] 71694- 3253 Feb, Chronic pain G89.29 [facility] [id number] [place] [address] 53673- 5556 Jan, Chronic pain G89.29 [facility] [id number] [place] [address] 35627- 8536 Dec, [facility] [id number] [place] [address] 56230- 4025 Dec, Chronic pain G89.29 [facility] [id number] [place] [address] 34329- 9338 Dec, Other chronic pain G89.29 ; Hyperlipidemia E78.5 and Polyneuropathy G62.9 [facility] [id number] [place] [address] 75260- 9316 Dec, [facility] [address] 60072- 2603 November, Chronic pain G89.29 [facility] [id number] [place] [address] 65930- 1819 November, [facility] [id number] [place] [address] 37440- 8115 November, Chronic pain G89.29 ; Stye H00.019 ; Insomnia G47.00 ; Leg cramps R25.2 and GERD (gastroesophageal reflux disease) K21.9 [facility] [id number] [place] [address] 95372- 2400 Oct, Other chronic pain G89.29 [facility] [id number] [place] [address] 25998- 0336 Oct, Hyperlipidemia E78.5 [facility] [id number] [place] [address] 19017- 1374 Sep, Essential (primary) hypertension I10 [facility] [id number] [place] [address] 44819- 5205 Sep, Other chronic pain G89.29 ; Polyneuropathy G62.9 ; Essential (primary) hypertension I10 and Personal history of transient ischemic attack (TIA), 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 [facility] [id number] [place] [address] 07019- 8247 Sep, [facility] [id number] [place] [address] 40325- 9049 Sep, [facility] [id number] [place] [address] 75476- 5169 Aug, [facility] [address] 28988- 8787 Jul, [facility] [address] 22851- 9482 Jul, [facility] [id number] [place] [address] 78869- 9969 Jun, Other chronic pain G89.29 and Gastroesophageal reflux disease, esophagitis presence not specified K21.9 [facility] [id number] [place] [address] 64481- 7170 May, Chronic pain syndrome 338.4 and Polyneuropathy G62.9 [facility] [id number] [place] [address] 98341- 7544 May, Enlarged prostate with lower urinary tract symptoms N40.1 ; Other retention of urine R33.8 and Peripheral polyneuropathy G62.9 [facility] [id number] [place] [address] 89670- 8753 Apr, [place] [id number] [place] [address] 19801- 4769 16 Mar, 2015 [facility] [id number] [place] [address] 01603- 6338 Mar, Neuropathy 355.9 and Chronic pain 338.29 [facility] [id number] [place] [address] 03274- 8843 Feb, Neuropathy 355.9 and TIA (transient ischemic attack) 435.9 [facility] [id number] [place] [address] 06838- 1956 Dec, Neuropathy 355.9 ; Chronic pain 338.29 ; Restless legs 333.94 ; Seborrheic keratoses 702.19 and GERD (gastroesophageal reflux disease) 530.81 [facility] [id number] [place] [address] 89016- 5810 Dec, [facility] [id number] [place] [address] 04504- 1011 Oct, [facility] [id number] [place] [address] 166971- 7217 Oct, [facility] [id number] [place] [address] 129644- 5565 Sep, [facility] [id number] [place] [address] 408568- 2238 Sep, [facility] [id number] [place] [address] 98202- 0913 Sep, [facility] [id number] [place] [address] 996455- 3884 Sep, [facility] [address] 9391 Aug, [facility] [id number] [place] [address]- 2365 Aug, [facility] [address], [place] [address]- 7976 Jul, [facility] [id number] [place] [address] 964531- 9895 Jul, [facility] [address], [place] [address]- 4036 Jul, [facility] [id number] [place] [address] 294341- 0718 Jul, [facility] [address] [facility] [id number] [address]- 8129 Jul, [facility] [address] [facility] [id number] [address]- 1656 Jul, [facility] [address] [facility] [id number] [address]- 1823 Jul, [facility] [address] [facility] [id number] [address]- 0798 Jul, [facility] [address] [facility] [id number], [place] [address]- 1881 Jun, [facility] [address] [facility] [id number], [place] [address]- 0474 Jun, IMMUNIZATIONS No Known Immunizations SOCIAL HISTORY Never Assessed REASON FOR VISIT Controlled Med Refill 06/06 PLAN OF CARE VITAL SIGNS MEDICATIONS Medication Instructions Dosage Frequency Start Date End Date Duration Status Hydrocodone-Acetaminophen 10-325 MG Orally twice a day 1 tablet as needed 12h May, 28 days Active Fentanyl 37.5 MCG/HR Transdermal Change every 72 hours 1 patch to skin May, 28 days Active RESULTS No Results PROCEDURES [...]
--- OUTSIDE RECORDS SUMMARY | 2018-10-16 08:58 | XMS REPORT ---
Author Author RADHIKA CERVANTES [facility] Address [address] [place] [address] Care Team Providers Care Parachute Cushion Installer Name Role Phone RADHIKA CERVANTES Unavailable PROBLEMS Type Condition ICD9-CM Code [id number] Code Onset Dates Condition Status SNOMED Code Problem Stye H00.019 Active 0637543 Problem Insomnia G47.00 Active 366188654 Problem Chronic pain G89.29 Active 35858872 Problem Benign prostatic hyperplasia with lower urinary tract symptoms N40.1 Active 457333574 Problem Numbness of left hand R20.0 Active 184106421 Problem Transient cerebral ischemia, unspecified type G45.9 Active 042665701 Problem Primary insomnia F51.01 Active 2230144 Problem Gastro-esophageal reflux disease without esophagitis K21.9 Active 844214473 Problem Goiter E04.9 Active 4234217 Problem Other insomnia G47.09 Active 714807101 Problem Other headache syndrome G44.89 Active 184408990 Problem Eye exam, routine Z01.00 Active 070008955 Problem Essential (primary) hypertension I10 Active 02568480 Problem Personal history of transient ischemic attack (TIA), 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 Active 168529034 Problem Glaucoma of both eyes, unspecified glaucoma H40.9 Active 63613965 Problem Hyperlipidemia E78.5 Active 58961231 Problem Polyneuropathy G62.9 Active 84302646 Problem Leg cramps R25.2 Active 939928729 ALLERGIES No Information ENCOUNTERS Encounter Location Date Diagnosis [facility] [id number] [address] Mar, Chronic pain G89.29 [facility] [id number] [address] Feb, Chronic pain G89.29 [facility] [id number] [place] [address]117- 8320 Jan, Polyneuropathy G62.9 ; Chronic pain G89.29 ; Essential ( primary) hypertension I10 ; Goiter E04.9 ; Gastro-esophageal reflux disease without esophagitis K21.9 ; Hyperlipidemia E78.5 ; Benign prostatic hyperplasia with lower urinary tract symptoms N40.1 and Other retention of urine R33.8 [place] [address] [address] Jan, Chronic pain G89.29 [place] [address] [address]162- [address]335 Dec, Chronic pain G89.29 [place] [address] [address]47- 3807 November, Chronic pain G89.29 [place] [address] 30409- 5816 Oct, Chronic pain G89.29 [place] [address] 31242- 1237 Oct, Chronic pain G89.29 [place] [address] 51972- 9134 Sep, Chronic pain G89.29 [place] [address] [address]49- 4752 Sep, Polyneuropathy G62.9 ; Chronic pain G89.29 and Gastro- esophageal reflux disease without esophagitis K21.9 [place] [id number] [place] [address] 02742- 8090 Sep, Chronic pain G89.29 [place] [address] [address]67- [address]249 Jul, [place] [id number] [place] [address] 72137- 4230 Jul, Chronic pain G89.29 ; Polyneuropathy G62.9 and Numbness of left hand R20.0 [place] [id number] [place] [address] 39911- 1746 Jul, Chronic pain G89.29 ; Polyneuropathy G62.9 ; Gastro- esophageal reflux disease without esophagitis K21.9 ; Numbness of left hand R20.0 and Primary insomnia F51.01 [place] [address] 23878- 1220 Jul, Chronic pain G89.29 [place] [address] 39612- 2148 Jun, Chronic pain G89.29 [place] [address] 386375- 7989 May, Chronic pain G89.29 [place] [address] 14144- 9993 Apr, Chronic pain G89.29 [place] [address] [id number]- 7658 Apr, Chronic pain G89.29 and Polyneuropathy G62.9 [place] [address] 386373- 9553 Mar, Chronic pain G89.29 [place] [address] 7[address]10- 9753 Feb, Chronic pain G89.29 [place] [address] [id number]- 0146 Feb, Chronic pain G89.29 [place] [address] 79882- 5976 Jan, Goiter E04.9 [place] [address] [address] [id number]- 6477 Jan, Chronic pain G89.29 ; Hyperlipidemia E78.5 ; Essential ( primary) hypertension I10 ; Anuria R34 and Goiter E04.9 [place] [id number] [address] Jan, Chronic pain G89.29 [facility] [id number] [place] [address] 23480- 7037 November, Chronic pain G89.29 [facility] [id number] [place] [address] 38625- 3333 November, [facility] [id number] [place] [address] 62723- 4944 Oct, Chronic pain G89.29 [facility] [id number] [place] [address] 20805- 1060 Oct, Chronic pain G89.29 and Primary insomnia F51.01 [facility] [id number] [place] [address] 21637- 3441 Sep, Chronic pain G89.29 [facility] [id number] [place] [address] 33414- 9776 Sep, [facility] [id number] [place] [address] 04421- 7920 Sep, Chronic pain G89.29 and Primary insomnia F51.01 [facility] [id number] [place] [address] 11526- 6552 Sep, [facility] [id number] [place] [address] 29451- 6602 Sep, Transient cerebral ischemia, unspecified type G45.9 ; Acute midline low back pain without sciatica M54.5 and Seborrheic keratosis L82.1 [facility] [id number] [place] [address] 99180- 3334 Sep, Chronic pain G89.29 [facility] [id number] [place] [address] 90717- 4413 Aug, Chronic pain G89.29 and Primary insomnia F51.01 [facility] [id number] [place] [address] 23180- 1753 Aug, Chronic pain G89.29 [facility] [id number] [place] [address] 27254- 9684 Jul, Chronic pain G89.29 and Primary insomnia F51.01 [facility] [id number] [place] [address] 29455- 2421 Jul, Chronic pain G89.29 [facility] [address] 33951- 0792 Jun, Chronic pain G89.29 ; Essential (primary) hypertension I10 ; Polyneuropathy G62.9 ; Drug-induced constipation K59.03 and Primary insomnia F51.01 [facility] [id number] [place] [address] 51369- 8665 Jun, Chronic pain G89.29 [place] [id number] [place] [address] 62340- 8011 Jun, [facility] [id number] [place] [address] 63734- 6544 Jun, Insomnia G47.00 ; Chronic pain G89.29 and Seborrheic keratosis L82.1 [facility] [id number] [place] [address] 22475- 0459 Apr, Chronic pain G89.29 [place] [id number] [place] [address] 14214- 5748 Mar, Chronic pain G89.29 [facility] [id number] [place] [address] 63873- 4187 Feb, Chronic pain G89.29 [facility] [id number] [place] [address] 07761- 2935 Jan, Chronic pain G89.29 [facility] [id number] [place] [address] 00694- 3960 Dec, [facility] [address] 32442- 5154 Dec, Chronic pain G89.29 [place] [id number] [place] [address] 14317- 2213 Dec, Other chronic pain G89.29 ; Hyperlipidemia E78.5 and Polyneuropathy G62.9 [place] [id number] [place] [address] 69482- 1194 Dec, [place] [id number] [place] [address] 52791- 9304 November, Chronic pain G89.29 [place] [id number] [place] [address] 85059- 8588 November, [place] [id number] [place] [address] 89328- 6467 November, Chronic pain G89.29 ; Stye H00.019 ; Insomnia G47.00 ; Leg cramps R25.2 and GERD (gastroesophageal reflux disease) K21.9 [place] [id number] [place] [address] 72063- 1759 Oct, Other chronic pain G89.29 [place] [id number] [place] [address] 54630- 7143 Oct, Hyperlipidemia E78.5 [place] [id number] [place] [address] 25585- 9857 Sep, Essential (primary) hypertension I10 [place] [id number] [place] [address] 27397- 9258 30 Sep, 2015 Other chronic pain G89.29 ; Polyneuropathy G62.9 ; Essential (primary) hypertension I10 and Personal history of transient ischemic attack (TIA), 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 [place] [id number] [place] [address] 12977- 1479 Sep, [place] [id number] [place] [address] 67647- 3982 Sep, [facility] [id number] [place] [address] 25605- 5732 Aug, [facility] [id number] [place] [address] 124212- 1705 Jul, [facility] [id number] [place] [address] 958938- 9461 Jul, [place] [id number] [place] [address] 740439- 8393 Jun, Other chronic pain G89.29 and Gastroesophageal reflux disease, esophagitis presence not specified K21.9 [place] [address] 871016- 1670 May, Chronic pain syndrome 338.4 and Polyneuropathy G62.9 [place] [id number] [place] [address] 46112- 2975 May, Enlarged prostate with lower urinary tract symptoms N40.1 ; Other retention of urine R33.8 and Peripheral polyneuropathy G62.9 [place] [id number] [place] [address] 59791- 9854 Apr, [place] [id number] [place] [address] 55238- 4629 Mar, [place] [id number] [place] [address] 43785- 1951 Mar, Neuropathy 355.9 and Chronic pain 338.29 [place] [id number] [place] [address] 64488- 4053 Feb, Neuropathy 355.9 and TIA (transient ischemic attack) 435.9 [place] [id number] [place] [address] 449595- 5322 Dec, Neuropathy 355.9 ; Chronic pain 338.29 ; Restless legs 333.94 ; Seborrheic keratoses 702.19 and GERD (gastroesophageal reflux disease) 530.81 [place] [id number] [place] [address] 61851- 1455 Dec, [facility] [place] [facility] [address] [id number] [place] [address]- 2061 Oct, [facility] [place] [facility] [address] [id number] [address]- 2066 Oct, [facility] [place] [facility] [address] [id number] [place] [address]- 8644 Sep, [facility] [place] [facility] [address] [id number] [place] [address]- 2473 Sep, [facility] [place] [facility] [address] [id number] [place] [address]- 3140 Sep, [facility] [place] [facility] [address] [id number] [place] [address]- 9566 Sep, [facility] [place] [facility] [address] [id number], [place] [address]- 0721 Aug, [facility] [place] [facility] [address] [id number] [place] [address]- 8945 Aug, [facility] [place] [facility] [address] [id number] [place] [address]- 5351 Jul, [facility] [place] [facility] [address] [id number] [place] [address]- 3289 Jul, [facility] [place] [facility] [address] [id number], [place] [address]- 7705 Jul, [facility] [place] [facility] [address] [id number], [place] [address]- 1047 Jul, [facility] [place] [facility] [address] [id number], [place] [address]- 4090 Jul, [facility] [place] [facility] [address] [id number], [place] [address]- 5689 Jul, [facility] [place] [facility] [address] [facility] [id number], [place] [address]- 3813 Jul, [facility] [place] [facility] [address] [facility] [id number] [place] 5483 Jul, [facility] [address] [facility] [id number] [place] [address]- 5233 Jun, [facility] [address] [facility] [id number] [place] [address]- 8247 Jun, IMMUNIZATIONS No Known Immunizations SOCIAL HISTORY Never Assessed REASON FOR VISIT Controlled Med Refill 03/01/18 PLAN OF CARE VITAL SIGNS MEDICATIONS Medication Instructions Dosage Frequency Start Date End Date Duration Status Hydrocodone-Acetaminophen 10-325 MG Orally twice a day 1 tablet as needed 12h Feb, 28 days Active Fentanyl 37.5 MCG/HR Transdermal Change every 72 hours 1 patch to skin Feb, 28 days Active RESULTS No Results PROCEDURES [...]
--- OUTSIDE RECORDS SUMMARY | 2018-10-16 08:58 | XMS REPORT ---
Author Author RADHIAK CERVANTES Organization [facility] Address [address] [place] [address] Care Team Providers Care Engineering Systems Analyst Name Role Phone RADHIKA CERVANTES Unavailable PROBLEMS Type Condition ICD9-CM Code NXU88-WA Code Onset Dates Condition Status SNOMED Code Problem Stye H00.019 Active 8536747 Problem Insomnia G47.00 Active 267756675 Problem Chronic pain G89.29 Active 76072584 Problem Benign prostatic hyperplasia with lower urinary tract symptoms N40.1 Active 426187065 Problem Numbness of left hand R20.0 Active 533591876 Problem Transient cerebral ischemia, unspecified type G45.9 Active 766542201 Problem Primary insomnia F51.01 Active 0128103 Problem Gastro-esophageal reflux disease without esophagitis K21.9 Active 975984074 Problem Goiter E04.9 Active 0989984 Problem Other insomnia G47.09 Active 304013876 Problem Other headache syndrome G44.89 Active 519738976 Problem Eye exam, routine Z01.00 Active 038067436 Problem Essential (primary) hypertension I10 Active 51651486 Problem Personal history of transient ischemic attack (TIA), 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 [address] [facility] [id number] [address] Mar, Chronic pain G89.29 [facility] [address] [facility] [id number], [place] [address] Feb, Chronic pain G89.29 [facility] [address] [place] [id number] [place] [address]603- 0823 Jan, Polyneuropathy G62.9 ; Chronic pain G89.29 ; Essential ( primary) hypertension I10 ; Goiter E04.9 ; Gastro-esophageal reflux disease without esophagitis K21.9 ; Hyperlipidemia E78.5 ; Benign prostatic hyperplasia with lower urinary tract symptoms N40.1 and Other retention of urine R33.8 [place] [address] [address] Jan, Chronic pain G89.29 [place] [address] [address]- 4789 Dec, Chronic pain G89.29 [place] [address] [address]- [address]24 November, Chronic pain G89.29 [place] [address] 58469- 0263 Oct, Chronic pain G89.29 [place] [address] [place] [id number] [place] [address] 02787- 4125 Oct, Chronic pain G89.29 [place] [address] [place] [id number] [place] [address] 26039- 8055 Sep, Chronic pain G89.29 [place] [address] [place] [id number] [place] [address] 71710- 0226 Sep, Polyneuropathy G62.9 ; Chronic pain G89.29 and Gastro- esophageal reflux disease without esophagitis K21.9 [place] [address] [place] [id number] [place] [address] 38959- 3621 Sep, Chronic pain G89.29 [place] [address] [place] [id number] [place] [address] 70740- 0607 Jul, [place] [address] [place] [id number] [place] [address] 90090- 4915 Jul, Chronic pain G89.29 ; Polyneuropathy G62.9 and Numbness of left hand R20.0 [place] [address] [place] [id number] [place] [address] 84341- 4688 Jul, Chronic pain G89.29 ; Polyneuropathy G62.9 ; Gastro- esophageal reflux disease without esophagitis K21.9 ; Numbness of left hand R20.0 and Primary insomnia F51.01 [place] [address] [address]- [address]1 Jul, Chronic pain G89.29 [place] [address] [place] [address]334- 3859 Jun, Chronic pain G89.29 [place] [address] [place] [id number]- 1633 May, Chronic pain G89.29 [place] [address] [address]476- 6915 Apr, Chronic pain G89.29 [place] [address] 90986- 9585 Apr, Chronic pain G89.29 and Polyneuropathy G62.9 [place] [address] 09431- 3875 Mar, Chronic pain G89.29 [place] [address] 18697- 8308 Feb, Chronic pain G89.29 [place] [address] 27608- 9375 Feb, Chronic pain G89.29 [place] [address] 14956- 1604 Jan, Goiter E04.9 [place] [address] 89492- 7186 Jan, Chronic pain G89.29 ; Hyperlipidemia E78.5 ; Essential ( primary) hypertension I10 ; Anuria R34 [address] [facility] [id number] [place] [address] 13391- 1046 Jan, Chronic pain G89.29 [facility] [address] [address] [id number] [place] [address] 65826- 3766 November, Chronic pain G89.29 [facility] [address] 6[address]83- [address] November, [facility] [address] 67322- 8219 Oct, Chronic pain G89.29 [facility] [address] 30336- 9612 Oct, Chronic pain G89.29 and Primary insomnia F51.01 [facility] [address] 34151- 8014 Sep, Chronic pain G89.29 [facility] [address] 58027- 0953 Sep, [place] [address] 04805- 4408 Sep, Chronic pain G89.29 and Primary insomnia F51.01 [facility] [address] [place] [id number] [place] [address] 08656- 9818 Sep, [facility] [address] 84095- 8160 Sep, Transient cerebral ischemia, unspecified type G45.9 ; Acute midline low back pain without sciatica M54.5 and Seborrheic keratosis L82.1 [facility] [address] 04381- 7926 Sep, Chronic pain G89.29 [facility] [address] [address] [id number] [place] [address] 80467- 4483 Aug, Chronic pain G89.29 and Primary insomnia F51.01 [facility] [address] [place] [id number] [place] [address] 82349- 2399 02 Aug, [address] [facility] [address] [place] [id number] [place] [address] 53475- 1256 Jul, Chronic pain G89.29 and Primary insomnia F51.01 [facility] [address] [place] [id number] [place] [address] 14104- 1941 Jul, Chronic pain G89.29 [facility] [address] [place] [id number] [place] [address] 82134- 7408 Jun, Chronic pain G89.29 ; Essential (primary) hypertension I10 ; Polyneuropathy G62.9 ; Drug-induced constipation K59.03 and Primary insomnia F51.01 [facility] [address] [place] [address] [id number] [place] [address] 04872- 8154 Jun, Chronic pain G89.29 [facility] [address] 20489- 5945 Jun, [facility] [address] [place] [id number] [place] [address] 16033- 5030 Jun, Insomnia G47.00 ; Chronic pain G89.29 and Seborrheic keratosis L82.1 [facility] [address] [place] [address] [id number] [place] [address] 81398- 6237 Apr, Chronic pain G89.29 [facility] [address] [place] [id number] [place] [address] 89484- 8592 Mar, Chronic pain G89.29 [facility] [address] [place] [id number] [place] [address] 17732- 1601 Feb, Chronic pain G89.29 [facility] [address] [place] [address] [id number] [place] [address] 59673- 7127 Jan, Chronic pain G89.29 [facility] [address] [place] [id number] [place] [address] 98722- 3941 Dec, [place] [id number] [place] [address] 25781- 1296 Dec, Chronic pain G89.29 [place] [address] [place] [id number] [place] [address] 57615- 0529 Dec, Other chronic pain G89.29 ; Hyperlipidemia E78.5 and Polyneuropathy G62.9 [place] [address] [place] [id number] [place] [address] 22061- 2573 Dec, [place] [address] [place] [id number] [place] [address] 56424- 3952 November, Chronic pain G89.29 [place] [address] 65135- 8018 November, [place] [address] [place] [id number] [place] [address] 04106- 2401 November, Chronic pain G89.29 ; Stye H00.019 ; Insomnia G47.00 ; Leg cramps R25.2 and GERD (gastroesophageal reflux disease) K21.9 [place] [address] [place] [id number] [place] [address] 80001- 3114 Oct, Other chronic pain G89.29 [place] [address] [place] [id number] [place] [address] 51539- 7376 Oct, Hyperlipidemia E78.5 [place] [address] [place] [id number] [place] [address] 63384- 2103 Sep, Essential (primary) hypertension I10 [place] [address] [place] [id number] [place] [address] 21872- 6615 30 Sep, 2015 Other chronic pain G89.29 ; Polyneuropathy G62.9 ; Essential (primary) hypertension I10 and Personal history of transient ischemic attack (TIA), 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 [address] [place] [id number] [place] [address] 42235- 6168 Aug, [facility] [address] [place] [id number] [place] [address] 924900- 5159 Jul, [facility] [address] 291813- 7726 Jul, [facility] [address] 30771- 3348 Jun, Other chronic pain G89.29 and Gastroesophageal reflux disease, esophagitis presence not specified K21.9 [place] [address] [place] [id number] [place] [address] 68562- 9837 May, Chronic pain syndrome 338.4 and Polyneuropathy G62.9 [place] [address] 25186- 1085 May, Enlarged prostate with lower urinary tract symptoms N40.1 ; Other retention of urine R33.8 and Peripheral polyneuropathy G62.9 [place] [address] [place] [id number] [place] [address] 88065- 8518 14 Apr, 2015 [place] [address] [place] [id number] [place] [address] 58766- 1901 16 Mar, 2015 [place] [address] [place] [id number] [place] [address] 62822- 2578 Mar, Neuropathy 355.9 and Chronic pain 338.29 [place] [address] [place] [id number] [place] [address] 24157- 6836 05 Feb, 2015 Neuropathy 355.9 and TIA (transient ischemic attack) 435.9 [place] [address] [place] [id number] [place] [address] 00146- 8018 Dec, Neuropathy 355.9 ; Chronic pain 338.29 ; Restless legs 333.94 ; Seborrheic keratoses 702.19 and GERD (gastroesophageal reflux disease) 530.81 [place] [id number] [id number] [place] [address]- 2559 Dec, [facility] [place] [facility] [address] [id number] [place] [address]- 4658 Oct, [facility] [place] [facility] [address] [id number] [place] [address]- 6675 Oct, [facility] [place] [facility] [address] [id number] [place] [address]- 9018 Sep, [facility] [place] [facility] [address] [id number] [place] [address]- 8679 Sep, [facility] [place] [facility] [address] [id number] [place] [address]- 9187 Sep, [facility] [place] [facility] [address] [id number] [place] [address]- 6267 Sep, [facility] [place] [facility] [address] [id number] [place] [address]- 1964 Aug, [facility] [place] [facility] [address] [id number] [place] [address]- 7212 Aug, [facility] [place] [facility] [address] [id number] [place] [address]- 7353 Jul, [facility] [place] [facility] [address] [id number] [place] [address]- 5551 Jul, [facility] [place] [facility] [address] [id number] [place] [address]- 1932 Jul, [facility] [place] [facility] [address] [id number] [place] [address]- 6653 Jul, [facility] [place] [facility] [address] [id number] [place] [address]- 8586 Jul, [facility] [place] [facility] [address] [id number] [place] [address]- 7741 Jul, [facility] [place] [facility] [address] [id number] [place] Jul, [facility] [address] [facility] [id number] [place] [address] 9439 Jul, [facility] [address] [facility] [id number] [address]26 Jun, [facility] [address] [facility] [id number] [place] [address]- 8946 Jun, IMMUNIZATIONS No Known Immunizations SOCIAL HISTORY Never Assessed REASON FOR VISIT Pain management (chronic) Pt rates pain at a 7 at this moment KEILA Rucker PLAN OF CARE Activity Details Follow Up 3 Months Reason:pain mgmt VITAL SIGNS Height 73 in 2018-02-05 Weight 174.0 lbs 2018-02-05 Temperature 98.5 degrees Fahrenheit 2018-02-05 Heart Rate 66 bpm 2018-02-05 Respiratory Rate 18 2018-02-05 BMI 22.95 kg/m2 2018-02-05 Blood pressure systolic 146 mmHg 2018-02-05 Blood pressure diastolic 84 mmHg 2018-02-05 MEDICATIONS Medication Instructions Dosage Frequency Start Date End Date Duration Status Omeprazole 20 mg TAKE ONE CAPSULE BY MOUTH ONCE DAILY 90 Active Doxazosin Mesylate 1 MG Orally Once a day at hs 1 tablet Jan, 30 day(s) Active Hydrocodone-Acetaminophen 10-325 MG Orally twice a day 1 tablet as needed 12h Jan, 28 days Active Wrist Splint/Cock-Up/Left L - as directed Jul, lifetime Not-Taking Rollator Wheeled walker with seat for use while ambulating Jul, lifetime Active Fentanyl 37.5 MCG/HR Transdermal Change every 72 hours 1 patch to skin Jan, 28 days Active RESULTS No Results PROCEDURES Procedure Date Ordered Result Body Site LAB NOT BILLED BY [facility] February 05, 2018 VENIPUNCT, ROUTINE* February 05, 2018 INSTRUCTIONS MEDICATIONS ADMINISTERED No Known Medications [...]
--- OUTSIDE RECORDS SUMMARY | 2018-10-16 08:59 | XMS REPORT ---
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 Operator Name Role Phone RADHIKA CERVANTES Unavailable PROBLEMS Type Condition ICD9-CM Code OWX69-BZ Code Onset Dates Condition Status SNOMED Code Problem Stye H00.019 Active 5309913 Problem Insomnia G47.00 Active 833358402 Problem Chronic pain G89.29 Active 27866630 Problem Benign prostatic hyperplasia with lower urinary tract symptoms N40.1 Active 840154446 Problem Numbness of left hand R20.0 Active 370368001 Problem Transient cerebral ischemia, unspecified type G45.9 Active 624412795 Problem Primary insomnia F51.01 Active 2796210 Problem Gastro-esophageal reflux disease without esophagitis K21.9 Active 320197492 Problem Goiter E04.9 Active 9016625 Problem Other insomnia G47.09 Active 628741847 Problem Other headache syndrome G44.89 Active 635142404 Problem Eye exam, routine Z01.00 Active 760307849 Problem Essential (primary) hypertension I10 Active 57147565 Problem Personal history of transient ischemic attack (TIA), 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 Active 257266909 Problem Glaucoma of both eyes, unspecified glaucoma H40.9 Active 63534530 Problem Hyperlipidemia E78.5 Active 58271381 Problem Polyneuropathy G62.9 Active 71384454 Problem Leg cramps R25.2 Active [id number] ALLERGIES No Information ENCOUNTERS Encounter Location Date Diagnosis [facility] [address] [id number] [address] Jan, Polyneuropathy G62.9 ; Chronic pain G89.29 ; Essential ( primary) hypertension I10 ; Goiter E04.9 ; Gastro-esophageal reflux disease without esophagitis K21.9 ; Hyperlipidemia E78.5 ; Benign prostatic hyperplasia with lower urinary tract symptoms N40.1 and Other retention of urine R33.8 [place] [id number] [place] [address] 24876- 6172 Jan, Chronic pain G89.29 [facility] [id number] [place] [address] 18819- 1212 Dec, Chronic pain G89.29 [place] [id number] [place] [address] 70917- 1406 November, Chronic pain G89.29 [place] [id number] [place] [address] 38780- 1552 Oct, Chronic pain G89.29 [place] [id number] [place] [address] 90182- 3863 Oct, Chronic pain G89.29 [place] [id number] [place] [address] 80020- 6552 Sep, Chronic pain G89.29 [place] [id number] [place] [address] 92573- 8880 Sep, Polyneuropathy G62.9 ; Chronic pain G89.29 and Gastro- esophageal reflux disease without esophagitis K21.9 [place] [id number] [place] [address] 37662- 5367 Sep, Chronic pain G89.29 [place] [id number] [place] [address] 00696- 1872 Jul, [place] [id number] [place] [address] 71435- 4380 Jul, Chronic pain G89.29 ; Polyneuropathy G62.9 and Numbness of left hand R20.0 [place] [id number] [place] [address] 98592- 7198 Jul, Chronic pain G89.29 ; Polyneuropathy G62.9 ; Gastro- esophageal reflux disease without esophagitis K21.9 ; Numbness of left hand R20.0 and Primary insomnia F51.01 [facility] [id number] [place] [address] 07815- 5366 Jul, Chronic pain G89.29 [facility] [address] [address] 2546 Jun, Chronic pain G89.29 [facility] [address] 29138- 4276 May, Chronic pain G89.29 [facility] [address] 26[address] 2546 Apr, Chronic pain G89.29 [place] [address] 73011- 1576 Apr, Chronic pain G89.29 and Polyneuropathy G62.9 [place] [address] 27265- 3509 Mar, Chronic pain G89.29 [facility] [address] 95205- 0839 Feb, Chronic pain G89.29 [facility] [address] 67568- 1165 Feb, Chronic pain G89.29 [facility] [id number] [place] [address] 62023- 3166 Jan, Goiter E04.9 [facility] [address] 14197- 6600 Jan, Chronic pain G89.29 ; Hyperlipidemia E78.5 ; Essential ( primary) hypertension I10 ; Anuria R34 and Goiter E04.9 [facility] [address] 21962- 6357 Jan, Chronic pain G89.29 [facility] [id number] [place] [address] 53619- 3614 November, Chronic pain G89.29 [facility] [address] [address] November, [facility] [id number] [place] [address] 11736- 8748 Oct, Chronic pain G89.29 [facility] [id number] [place] [address] 33982- 9839 Oct, Chronic pain G89.29 and Primary insomnia F51.01 [facility] [id number] [place] [address] 18858- 4838 Sep, Chronic pain G89.29 [facility] [id number] [place] [address] 64969- 5667 Sep, [facility] [id number] [place] [address] 38436- 6428 Sep, Chronic pain G89.29 and Primary insomnia F51.01 [facility] [id number] [place] [address] 76039- 0477 Sep, [facility] [id number] [place] [address] 11439- 7531 Sep, Transient cerebral ischemia, unspecified type G45.9 ; Acute midline low back pain without sciatica M54.5 and Seborrheic keratosis L82.1 [facility] [address] [place] [address] 71830- 3804 Sep, Chronic pain G89.29 [facility] [id number] [place] [address] 99375- 8644 Aug, Chronic pain G89.29 and Primary insomnia F51.01 [facility] [id number] [place] [address] 71025- 1774 Aug, Chronic pain G89.29 [facility] [address] [place] [address] 88655- 7223 Jul, Chronic pain G89.29 and Primary insomnia F51.01 [facility] [id number] [place] [address] 83753- 8174 Jul, Chronic pain G89.29 [facility] [id number] [place] [address] 98600- 4703 Jun, Chronic pain G89.29 ; Essential (primary) hypertension I10 ; Polyneuropathy G62.9 ; Drug-induced constipation K59.03 and Primary insomnia F51.01 [facility] [id number] [place] [address] 55613- 0435 Jun, Chronic pain G89.29 [facility] [address] 44866- 6923 Jun, [facility] [id number] [place] [address] 92536- 3896 Jun, Insomnia G47.00 ; Chronic pain G89.29 and Seborrheic keratosis L82.1 [facility] [id number] [place] [address] 47316- 3926 Apr, Chronic pain G89.29 [facility] [id number] [place] [address] 45531- 4311 Mar, Chronic pain G89.29 [facility] [id number] [place] [address] 23428- 0689 Feb, Chronic pain G89.29 [facility] [id number] [place] [address] 36904- 6124 Jan, Chronic pain G89.29 [facility] [id number] [place] [address] 72793- 1409 Dec, [facility] [address] 38713- 3847 Dec, Chronic pain G89.29 [facility] [id number] [place] [address] 14325- 9398 13 Dec, 2015 Other chronic pain G89.29 ; Hyperlipidemia E78.5 and Polyneuropathy G62.9 [facility] [id number] [place] [address] 73014- 7943 Dec, [place] [address] 37649- 8039 November, Chronic pain G89.29 [place] [id number] [place] [address] 84200- 4274 November, [place] [address] 48355- 5039 November, Chronic pain G89.29 ; Stye H00.019 ; Insomnia G47.00 ; Leg cramps R25.2 and GERD (gastroesophageal reflux disease) K21.9 [place] [id number] [place] [address] 99966- 7192 Oct, Other chronic pain G89.29 [place] [id number] [place] [address] 45629- 0292 Oct, Hyperlipidemia E78.5 [place] [id number] [place] [address] 09148- 4989 Sep, Essential (primary) hypertension I10 [place] [id number] [place] [address] 18336- 8864 Sep, Other chronic pain G89.29 ; Polyneuropathy G62.9 ; Essential (primary) hypertension I10 and Personal history of transient ischemic attack (TIA), 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 [place] [id number] [place] [address] 68810- 3074 Sep, [place] [id number] [place] [address] 76148- 9022 Sep, [place] [id number] [place] [address] 53128- 4595 Aug, [place] [id number] [place] [address] 17908- 0846 Jul, [place] [id number] [place] [address] 16997- 0907 Jul, [place] [address] 23675- 9700 Jun, Other chronic pain G89.29 and Gastroesophageal reflux disease, esophagitis presence not specified K21.9 [place] [id number] [place] [address] 55817- 3532 May, Chronic pain syndrome 338.4 and Polyneuropathy G62.[address] 65305- 9095 May, Enlarged prostate with lower urinary tract symptoms N40.1 ; Other retention of urine R33.8 and Peripheral polyneuropathy G62.[address] 28080- 7063 Apr, [address] 85408- 6044 Mar, [address] 37360- 1398 Mar, Neuropathy 355.9 and Chronic pain 338.[address] 69536- 1893 Feb, Neuropathy 355.9 and TIA (transient ischemic attack) 435.[address] 09587- 1539 Dec, Neuropathy 355.9 ; Chronic pain 338.29 ; Restless legs 333.94 ; Seborrheic keratoses 702.19 and GERD (gastroesophageal reflux disease) 530.[address] 92896- 2903 Dec, [address] 19883- [address]19 Oct, [address] 90077- 8233 Oct, [facility] [place] [facility] [address] [id number] [place] [address]- 6900 Sep, [facility] [place] [facility] [address] [id number] [place] [address]- 7979 Sep, [facility] [place] [facility] [address] [id number] [place] [address]- 0261 Sep, [facility] [place] [facility] [address] [id number] [place] [address]- 8216 Sep, [facility] [place] [facility] [address] [id number] [place] [address]- 0786 Aug, [facility] [place] [facility] [address] [id number] [place] [address]- 8538 Aug, [facility] [place] [facility] [address] [id number] [place] [address]- 2550 Jul, [facility] [place] [facility] [address] [id number], [place] [address]- 0244 Jul, [facility] [place] [facility] [address] [id number] [place] [address]- 0876 Jul, [facility] [place] [facility] [address] [id number], [place] [address]- 4603 Jul, [facility] [place] [facility] [address] [id number], [place] [address]- 3561 Jul, [facility] [place] [facility] [address] [id number], [place] [address]- 1283 Jul, [facility] [place] [facility] [address] [id number], [place] [address]- 3520 Jul, [facility] [place] [facility] [address] [id number], [place] [address]- 6326 Jul, [facility] [place] [facility] [address] [id number] [address]- 0878 Jun, [facility] [place] [facility] [address] [id number] 7761 Jun, IMMUNIZATIONS No Known Immunizations SOCIAL HISTORY Never Assessed REASON FOR VISIT Controlled Med Refill 12/07/17 PLAN OF CARE VITAL SIGNS MEDICATIONS Medication Instructions Dosage Frequency Start Date End Date Duration Status Fentanyl 37.5 MCG/HR Transdermal Change every 72 hours 1 patch to skin November, 28 days Active Hydrocodone-Acetaminophen 10-325 MG Orally twice a day 1 tablet as needed 12h November, 28 days Active RESULTS No Results PROCEDURES [...]
--- OUTSIDE RECORDS SUMMARY | 2018-10-16 08:59 | XMS REPORT ---
Author Author RADHIKA CERVANTES Organization [facility] Address [address] [place] [address] Care Team Providers Care Mixer Lever Operator Name Role Phone RADHIKA CERVANTES Unavailable PROBLEMS Type Condition ICD9-CM Code GHW06-FU Code Onset Dates Condition Status SNOMED Code Problem Stye H00.019 Active 6271191 Problem Insomnia G47.00 Active 722229098 Problem Chronic pain G89.29 Active 95574275 Problem Benign prostatic hyperplasia with lower urinary tract symptoms N40.1 Active 965500723 Problem Numbness of left hand R20.0 Active 845629546 Problem Transient cerebral ischemia, unspecified type G45.9 Active 081922473 Problem Primary insomnia F51.01 Active 0743410 Problem Gastro-esophageal reflux disease without esophagitis K21.9 Active 493450514 Problem Goiter E04.9 Active 0570612 Problem Other insomnia G47.09 Active 643310028 Problem Other headache syndrome G44.89 Active 259277103 Problem Eye exam, routine Z01.00 Active 211611406 Problem Essential (primary) hypertension I10 Active 82692661 Problem Personal history of transient ischemic attack (TIA), 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 [id number] [address] Feb, Chronic pain G89.29 [facility] [id number], [place] [address] Jan, Polyneuropathy G62.9 ; Chronic pain G89.29 ; Essential ( primary) hypertension I10 ; Goiter E04.9 ; Gastro-esophageal reflux disease without esophagitis K21.9 ; Hyperlipidemia E78.5 ; Benign prostatic hyperplasia with lower urinary tract symptoms N40.1 and Other retention of urine R33.8 [id number] [place] [address] 52646- 9789 Jan, Chronic pain G89.29 [address] [address]387- 2291 Dec, Chronic pain G89.29 [address] [address] 6[address]63- 5812 November, Chronic pain G89.29 [address] 09402- 2549 Oct, Chronic pain G89.29 [address] [address] 70372- 4235 Oct, Chronic pain G89.29 [address] 00788- 5158 Sep, Chronic pain G89.29 [address] [address] 07115- 7603 Sep, Polyneuropathy G62.9 ; Chronic pain G89.29 and Gastro- esophageal reflux disease without esophagitis K21.9 [id number] [place] [address] 04714- 7779 Sep, Chronic pain G89.29 [id number] [place] [address] 78993- 8285 Jul, [address] [address] 47470- 8167 Jul, Chronic pain G89.29 ; Polyneuropathy G62.9 and Numbness of left hand R20.0 [address] [id number] [place] [address] 07177- 6320 Jul, Chronic pain G89.29 ; Polyneuropathy G62.9 ; Gastro- esophageal reflux disease without esophagitis K21.9 ; Numbness of left hand R20.0 and Primary insomnia F51.01 [id number] [place] [address] 01417- 7856 Jul, Chronic pain G89.29 [address] [address] 19211- 2536 Jun, Chronic pain G89.29 [address] [address] [address]59 2546 May, Chronic pain G89.29 [address] [address] 13710- 1786 Apr, Chronic pain G89.29 [address] [address] 81040- 6041 Apr, Chronic pain G89.29 and Polyneuropathy G62.9 [address] [address] 62900- 8760 Mar, Chronic pain G89.29 [address] 76965- 1519 Feb, Chronic pain G89.29 [address] [address] 99303 2548 Feb, Chronic pain G89.29 [address] [address] 10313 2544 Jan, Goiter E04.9 [address] [address] 48[address] 2540 Jan, Chronic pain G89.29 ; Hyperlipidemia E78.5 ; Essential ( primary) hypertension I10 ; Anuria R34 and Goiter E04.9 [address] [address] [address] [address]- 4287 Jan, Chronic pain G89.29 [address] [place] [id number] [place] [address] 41114- 8754 November, Chronic pain G89.29 [facility] [id number] [place] [address] 55184- 1076 November, [facility] [id number] [place] [address] 90024- 7584 Oct, Chronic pain G89.29 [facility] [id number] [place] [address] 88092- 5822 Oct, Chronic pain G89.29 and Primary insomnia F51.01 [facility] [id number] [place] [address] 53257- 9513 Sep, Chronic pain G89.29 [facility] [id number] [place] [address] 82876- 1590 Sep, [facility] [id number] [place] [address] 88236- 3042 Sep, Chronic pain G89.29 and Primary insomnia F51.01 [facility] [id number] [place] [address] 03168- 6556 Sep, [facility] [id number] [place] [address] 14185- 9221 Sep, Transient cerebral ischemia, unspecified type G45.9 ; Acute midline low back pain without sciatica M54.5 and Seborrheic keratosis L82.1 [facility] [id number] [place] [address] 28827- 5690 Sep, Chronic pain G89.29 [facility] [id number] [place] [address] 33386- 1501 Aug, Chronic pain G89.29 and Primary insomnia F51.01 [facility] [id number] [place] [address] 21533- 3764 Aug, Chronic pain G89.29 [facility] [id number] [place] [address] 78380- 9745 Jul, Chronic pain G89.29 and Primary insomnia F51.01 [facility] [id number] [place] [address] 58902- 9916 Jul, Chronic pain G89.29 [facility] [id number] [place] [address] 64573- 9880 Jun, Chronic pain G89.29 ; Essential (primary) hypertension I10 ; Polyneuropathy G62.9 ; Drug-induced constipation K59.03 and Primary insomnia F51.01 [facility] [id number] [place] [address] 40166- 3173 Jun, Chronic pain G89.29 [facility] [id number] [place] [address] 19998- 7323 Jun, [facility] [id number] [place] [address] 19856- 5939 Jun, Insomnia G47.00 ; Chronic pain G89.29 and Seborrheic keratosis L82.1 [facility] [id number] [place] [address] 35573- 4932 Apr, Chronic pain G89.29 [facility] [id number] [place] [address] 24730- 0449 Mar, Chronic pain G89.29 [facility] [id number] [place] [address] 40828- 4454 Feb, Chronic pain G89.29 [facility] [id number] [place] [address] 95002- 3819 Jan, Chronic pain G89.29 [facility] [id number] [place] [address] 76492- 9259 Dec, [facility] [id number] [place] [address] 66640- 7243 Dec, Chronic pain G89.29 [facility] [id number] [place] [address] 44421- 7151 Dec, Other chronic pain G89.29 ; Hyperlipidemia E78.[address] [facility] [id number] [place] [address] 64168- 4899 Dec, [facility] [id number] [place] [address] 97433- 4307 November, Chronic pain G89.29 [address] [id number] [place] [address] 03174- 7781 November, [id number] [place] [address] 24272- 8941 November, Chronic pain G89.29 ; Stye H00.019 ; Insomnia G47.00 ; Leg cramps R25.2 and GERD (gastroesophageal reflux disease) K21.9 [address] [id number] [place] [address] 20141- 4226 Oct, Other chronic pain G89.29 [id number] [place] [address] 47517- 1434 Oct, Hyperlipidemia E78.5 [address] [id number] [place] [address] 74672- 3850 Sep, Essential (primary) hypertension I10 [id number] [place] [address] 26231- 4579 Sep, Other chronic pain G89.29 ; Polyneuropathy G62.9 ; Essential (primary) hypertension I10 and Personal history of transient ischemic attack (TIA), 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 [address] [id number] [place] [address] 36924- 3661 Sep, [address] [id number] [place] [address] 76280- 1187 Sep, [id number] [place] [address] 88949- 5996 Aug, [address] [id number] [place] [address] 10067- 4925 Jul, [address] [address] 68492- 3358 Jul, [id number] [place] [address] 08030- 2212 Jun, Other chronic pain G89.29 and Gastroesophageal reflux disease, esophagitis presence not specified K21.9 [address] [id number] [place] [address] 96468- 0952 May, Chronic pain syndrome 338.4 and Polyneuropathy G62.[address] 94216- 2036 May, Enlarged prostate with lower urinary tract symptoms N40.1 ; Other retention of urine R33.8 and Peripheral polyneuropathy G62.[address] 97156- 8478 14 Apr, [address] 64030- 7674 16 Mar, [address] 35140- 0327 03 Mar, 2015 Neuropathy 355.9 and Chronic pain 338.29 [id number] [place] [address] 50434- 9582 Feb, Neuropathy 355.9 and TIA (transient ischemic attack) 435.9 [id number] [place] [address] 00088- 2273 16 Dec, 2014 Neuropathy 355.9 ; Chronic pain 338.29 ; Restless legs 333.94 ; Seborrheic keratoses 702.19 and GERD (gastroesophageal reflux disease) 530.81 [id number] [place] [address] 56775- 4802 15 Dec, [address] 02847- 4609 Oct, [facility] [place] [facility] [address] [id number] [place] [address]- 8463 Oct, [facility] [place] [facility] [address] [id number] [place] [address]- 6643 Sep, [facility] [place] [facility] [address] [id number] [place] [address]- 9100 Sep, [facility] [place] [facility] [address] [id number] [place] [address]- 7150 Sep, [facility] [place] [facility] [address] [id number] [place] [address]- 4491 Sep, [facility] [place] [facility] [address] [id number] [place] [address]- 1156 Aug, [facility] [place] [facility] [address] [id number] [place] [address]- 6994 Aug, [facility] [place] [facility] [address] [id number] [place] [address]- 2177 Jul, [facility] [place] [facility] [address] [id number] [place] [address]- 0198 Jul, [facility] [place] [facility] [address] [id number] [place] [address]- 6552 Jul, [facility] [place] [facility] [address] [id number] [place] [address]- 8949 Jul, [facility] [place] [facility] [address] [id number] [address]- 7362 Jul, [facility] [place] [facility] [address] [id number] [place] [address]- 3834 Jul, [facility] [place] [facility] [address] [id number] [place] [address]- 7650 Jul, [facility] [place] [facility] [address] [id number] [place] [address]- 5577 Jul, [facility] [place] [facility] [address] [facility] [id number] [place] [address]- [address] Jun, [facility] [address] [facility] [id number] [place] [address]- 9785 Jun, IMMUNIZATIONS No Known Immunizations SOCIAL HISTORY Never Assessed REASON FOR VISIT Controlled Med Refill 02/01/18 PLAN OF CARE VITAL SIGNS MEDICATIONS Medication Instructions Dosage Frequency Start Date End Date Duration Status Hydrocodone-Acetaminophen 10-325 MG Orally twice a day 1 tablet as needed 12h Jan, 28 days Active Fentanyl 37.5 MCG/HR Transdermal [...]
--- OUTSIDE RECORDS SUMMARY | 2018-10-16 08:59 | XMS REPORT ---
Author Author RADHIKA CERVANTES Organization [facility] Address [address] [place] [address] Care Team Providers Care Sports Team Manager Name Role Phone RADHIKA CERVANTES Unavailable PROBLEMS Type Condition ICD9-CM Code UAB78-FS Code Onset Dates Condition Status SNOMED Code Problem Stye H00.019 Active 5599430 Problem Insomnia G47.00 Active 223828395 Problem Chronic pain G89.29 Active 29536984 Problem Benign prostatic hyperplasia with lower urinary tract symptoms N40.1 Active 869705868 Problem Numbness of left hand R20.0 Active 138595955 Problem Transient cerebral ischemia, unspecified type G45.9 Active 830280840 Problem Primary insomnia F51.01 Active 6774907 Problem Gastro-esophageal reflux disease without esophagitis K21.9 Active 324614242 Problem Goiter E04.9 Active 4799905 Problem Other insomnia G47.09 Active 112485183 Problem Other headache syndrome G44.89 Active 384452866 Problem Eye exam, routine Z01.00 Active 547133345 Problem Essential (primary) hypertension I10 Active 69079892 Problem Personal history of transient ischemic attack (TIA), 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 Active 654123087 Problem Glaucoma of both eyes, unspecified glaucoma H40.9 Active 46778614 Problem Hyperlipidemia E78.5 Active 90546688 Problem Polyneuropathy G62.9 Active 75330023 Problem Leg cramps R25.2 Active 447274439 ALLERGIES No Information ENCOUNTERS Encounter Location Date Diagnosis [facility] [id number] [address] Feb, Chronic pain G89.29 [facility] [id number], [place] [address] Jan, Polyneuropathy G62.9 ; Chronic pain G89.29 ; Essential ( primary) hypertension I10 ; Goiter E04.9 ; Gastro-esophageal reflux disease without esophagitis K21.9 ; Hyperlipidemia E78.5 ; Benign prostatic hyperplasia with lower urinary tract symptoms N40.1 and Other retention of urine R33.8 [facility] [id number] [place] [address]0153- 3908 Jan, Chronic pain G89.29 [facility] [address] [address]- [address]248 Dec, Chronic pain G89.29 [place] [address] 6[address]02- 2101 November, Chronic pain G89.29 [place] [address] [address]89- 2444 Oct, Chronic pain G89.29 [place] [address] 02662- 5556 Oct, Chronic pain G89.29 [address] [address] 25129- 2188 Sep, Chronic pain G89.29 [place] [address] 09265- 6426 Sep, Polyneuropathy G62.9 ; Chronic pain G89.29 and Gastro- esophageal reflux disease without esophagitis K21.9 [facility] [id number] [place] [address] 22443- 3851 Sep, Chronic pain G89.29 [facility] [id number] [place] [address] 93236- 0877 Jul, [place] [address] 84792- 8713 Jul, Chronic pain G89.29 ; Polyneuropathy G62.9 and Numbness of left hand R20.0 [facility] [facility] [id number] [place] [address] 52066- 7730 Jul, Chronic pain G89.29 ; Polyneuropathy G62.9 ; Gastro- esophageal reflux disease without esophagitis K21.9 ; Numbness of left hand R20.0 and Primary insomnia F51.01 [facility] [facility] [id number] [place] [address] 68913- 9006 Jul, Chronic pain G89.29 [place] [address] 38763- 2186 Jun, Chronic pain G89.29 [place] [address] [address] 2546 May, Chronic pain G89.29 [place] [address] 79662- 8676 Apr, Chronic pain G89.29 [place] [address] 16566- 4154 Apr, Chronic pain G89.29 and Polyneuropathy G62.9 [place] [address] 22660- 8737 Mar, Chronic pain G89.29 [place] [address] 22375- 0630 Feb, Chronic pain G89.29 [place] [address] [address] 2540 Feb, Chronic pain G89.29 [place] [address] 08160 2548 Jan, Goiter E04.9 [place] [address] 8[address]31 254 Jan, Chronic pain G89.29 ; Hyperlipidemia E78.5 ; Essential ( primary) hypertension I10 ; Anuria R34 and Goiter E04.9 [place] [address] 43314- 3157 Jan, Chronic pain G89.29 [facility] [id number] [place] [address] 46001- 3554 November, Chronic pain G89.29 [facility] [id number] [place] [address] 50408- 1766 November, [facility] [id number] [place] [address] 63291- 1493 Oct, Chronic pain G89.29 [facility] [id number] [place] [address] 13461- 0305 Oct, Chronic pain G89.29 and Primary insomnia F51.01 [facility] [id number] [place] [address] 50953- 9435 Sep, Chronic pain G89.29 [facility] [id number] [place] [address] 32225- 1587 Sep, [facility] [id number] [place] [address] 61870- 4608 Sep, Chronic pain G89.29 and Primary insomnia F51.01 [facility] [id number] [place] [address] 70091- 9827 Sep, [facility] [id number] [place] [address] 83958- 3091 Sep, Transient cerebral ischemia, unspecified type G45.9 ; Acute midline low back pain without sciatica M54.5 and Seborrheic keratosis L82.1 [facility] [address] [place] [address] 84268- 2460 Sep, Chronic pain G89.29 [facility] [id number] [place] [address] 83519- 9258 Aug, Chronic pain G89.29 and Primary insomnia F51.01 [facility] [id number] [place] [address] 44716- 2412 Aug, Chronic pain G89.29 [facility] [id number] [place] [address] 18823- 5169 Jul, Chronic pain G89.29 and Primary insomnia F51.01 [facility] [id number] [place] [address] 19540- 0413 Jul, Chronic pain G89.29 [facility] [id number] [place] [address] 92607- 9999 Jun, Chronic pain G89.29 ; Essential (primary) hypertension I10 ; Polyneuropathy G62.9 ; Drug-induced constipation K59.03 and Primary insomnia F51.01 [facility] [id number] [place] [address] 48197- 5895 Jun, Chronic pain G89.29 [facility] [id number] [place] [address] 07193- 1519 Jun, [facility] [id number] [place] [address] 01645- 8325 Jun, Insomnia G47.00 ; Chronic pain G89.29 and Seborrheic keratosis L82.1 [facility] [id number] [place] [address] 29467- 5362 Apr, Chronic pain G89.29 [facility] [id number] [place] [address] 60586- 2639 Mar, Chronic pain G89.29 [facility] [id number] [place] [address] 29112- 7391 Feb, Chronic pain G89.29 [facility] [id number] [place] [address] 93304- 1906 Jan, Chronic pain G89.29 [facility] [id number] [place] [address] 88977- 7508 Dec, [facility] [id number] [place] [address] 60583- 8400 Dec, Chronic pain G89.29 [facility] [id number] [place] [address] 24730- 0272 Dec, Other chronic pain G89.29 ; Hyperlipidemia E78.5 and Polyneuropathy G62.9 [facility] [id number] [place] [address] 12374- 6929 Dec, [facility] [id number] [place] [address] 89311- 9377 November, Chronic pain G89.29 [facility] [facility] [id number] [place] [address] 97892- 3085 November, [facility] [id number] [place] [address] 73813- 8333 November, Chronic pain G89.29 ; Stye H00.019 ; Insomnia G47.00 ; Leg cramps R25.2 and GERD (gastroesophageal reflux disease) K21.9 [facility] [id number] [place] [address] 16536- 0161 Oct, Other chronic pain G89.29 [facility] [id number] [place] [address] 07364- 9172 Oct, Hyperlipidemia E78.5 [facility] [id number] [place] [address] 64259- 7541 Sep, Essential (primary) hypertension I10 [facility] [address] [place] [address] 66015- 2846 Sep, Other chronic pain G89.29 ; Polyneuropathy G62.9 ; Essential (primary) hypertension I10 and Personal history of transient ischemic attack (TIA), 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 [facility] [facility] [id number] [place] [address] 15329- 3826 Sep, [facility] [id number] [place] [address] 26931- 4354 Sep, [facility] [id number] [place] [address] 35996- 0081 Aug, [place] [id number] [place] [address] 99001- 4132 Jul, [place] [address] 77588- 6928 Jul, [place] [id number] [place] [address] 63393- 9182 Jun, Other chronic pain G89.29 and Gastroesophageal reflux disease, esophagitis presence not specified K21.9 [place] [id number] [place] [address] 81298- 1304 May, Chronic pain syndrome 338.4 and Polyneuropathy G62.[address] 80755- 0079 May, Enlarged prostate with lower urinary tract symptoms N40.1 ; Other retention of urine R33.8 and Peripheral polyneuropathy G62.[address] 41834- 1507 14 Apr, [address] 51091- 1613 16 Mar, [address] 35913- 9018 03 Mar, 2015 Neuropathy 355.9 and Chronic pain 338.29 [address] [id number] [place] [address] 65643- 7168 Feb, Neuropathy 355.9 and TIA (transient ischemic attack) 435.9 [address] [place] [id number] [place] [address] 25669- 9482 16 Dec, 2014 Neuropathy 355.9 ; Chronic pain 338.29 ; Restless legs 333.94 ; Seborrheic keratoses 702.19 and GERD (gastroesophageal reflux disease) 530.81 [id number] [place] [address] 44497- 4612 15 Dec, [address] 73241- 0970 Oct, [facility] [place] [facility] [address] [id number] [place] [address]- 7696 Oct, [facility] [place] [facility] [address] [id number] [place] [address]- 2312 Sep, [facility] [place] [facility] [address] [id number] [place] [address]- 2214 Sep, [facility] [place] [facility] [address] [id number] [place] [address]- 7753 Sep, [facility] [place] [facility] [address] [id number] [place] [address]- 0254 Sep, [facility] [place] [facility] [address] [id number] [place] [address]- 5699 Aug, [facility] [place] [facility] [address] [id number] [place] [address]- 5513 Aug, [facility] [place] [facility] [address] [id number] [place] [address]- 9437 Jul, [facility] [place] [facility] [address] [id number] [place] [address]- 8840 Jul, [facility] [place] [facility] [address] [id number] [place] [address]- 0266 Jul, [facility] [place] [facility] [address] [id number] [place] [address]- 5637 Jul, [facility] [place] [facility] [address] [id number] [address]- 4781 Jul, [facility] [place] [facility] [address] [id number] [place] [address]- 6831 Jul, [facility] [place] [facility] [address] [id number] [place] [address]- 8471 Jul, [facility] [place] [facility] [address] [id number] [place] [address]- 7088 Jul, [facility] [place] [facility] [address] [facility] [id number] [place] [address]- 7588 Jun, [facility] [address] [facility] [id number] [place] [address]- 6796 Jun, IMMUNIZATIONS No Known Immunizations SOCIAL HISTORY Never Assessed REASON FOR VISIT Controlled Med Refill 01/04/18 PLAN OF CARE VITAL SIGNS MEDICATIONS Medication Instructions Dosage Frequency Start Date End Date Duration Status Hydrocodone-Acetaminophen 10-325 MG Orally twice a day 1 tablet as needed 12h Dec, 28 days Active Fentanyl 37.5 MCG/HR Transdermal Change every 72 hours 1 patch to skin Dec, 28 days Active RESULTS No Results PROCEDURES [...]
--- OUTSIDE RECORDS SUMMARY | 2018-10-16 09:00 | XMS REPORT ---
Author Author RADHIKA CERVANTES Organization [facility] Address [address] [place] [address] Care Team Providers Care [employer] Installer Name Role Phone RADHIKA CERVANTES Unavailable PROBLEMS Type Condition ICD9-CM Code CLF24-JW Code Onset Dates Condition Status SNOMED Code Problem Stye H00.019 Active 8964016 Problem Insomnia G47.00 Active 970320488 Problem Chronic pain G89.29 Active 67422307 Problem Benign prostatic hyperplasia with lower urinary tract symptoms N40.1 Active 522112379 Problem Numbness of left hand R20.0 Active 054043725 Problem Transient cerebral ischemia, unspecified type G45.9 Active 768733270 Problem Primary insomnia F51.01 Active 0631089 Problem Gastro-esophageal reflux disease without esophagitis K21.9 Active 926218936 Problem Goiter E04.9 Active 4303113 Problem Other insomnia G47.09 Active 761063749 Problem Other headache syndrome G44.89 Active 441982966 Problem Eye exam, routine Z01.00 Active 200656760 Problem Essential (primary) hypertension I10 Active 17132040 Problem Personal history of transient ischemic attack (TIA), 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 Active 558260598 Problem Glaucoma of both eyes, unspecified glaucoma H40.9 Active 52903827 Problem Hyperlipidemia E78.5 Active 07409948 Problem Polyneuropathy G62.9 Active 93895351 Problem Leg cramps R25.2 Active 371135123 ALLERGIES No Information ENCOUNTERS Encounter Location Date Diagnosis [facility] [address] [id number] [address] Jan, Polyneuropathy G62.9 ; Chronic pain G89.29 ; Essential ( primary) hypertension I10 ; Goiter E04.9 ; Gastro-esophageal reflux disease without esophagitis K21.9 ; Hyperlipidemia E78.5 ; Benign prostatic hyperplasia with lower urinary tract symptoms N40.1 and Other retention of urine R33.8 [facility] [id number] [place] [address] 59803- 8896 Jan, Chronic pain G89.29 [facility] [id number] [place] [address] 19923- 0610 Dec, Chronic pain G89.29 [facility] [id number] [place] [address] 55122- 5132 November, Chronic pain G89.29 [facility] [id number] [place] [address] 45314- 6854 Oct, Chronic pain G89.29 [facility] [id number] [place] [address] 81459- 3012 Oct, Chronic pain G89.29 [facility] [id number] [place] [address] 58421- 7038 Sep, Chronic pain G89.29 [facility] [id number] [place] [address] 74776- 4798 Sep, Polyneuropathy G62.9 ; Chronic pain G89.29 and Gastro- esophageal reflux disease without esophagitis K21.9 [facility] [id number] [place] [address] 01778- 1643 Sep, Chronic pain G89.29 [facility] [place] [id number] [place] [address] 47815- 6654 Jul, [facility] [id number] [place] [address] 71999- 6631 Jul, Chronic pain G89.29 ; Polyneuropathy G62.9 and Numbness of left hand R20.0 [facility] [id number] [place] [address] 95166- 1344 Jul, Chronic pain G89.29 ; Polyneuropathy G62.9 ; Gastro- esophageal reflux disease without esophagitis K21.9 ; Numbness of left hand R20.0 and Primary insomnia F51.01 [facility] [id number] [place] [address] 90677- 8504 Jul, Chronic pain G89.29 [facility] [address] [address]46 Jun, Chronic pain G89.29 [facility] [address] 26125- 8546 May, Chronic pain G89.29 [facility] [address] [address] 2546 Apr, Chronic pain G89.29 [facility] [facility] [address] 14720- 9546 Apr, Chronic pain G89.29 and Polyneuropathy G62.9 [facility] [address] 44891- 9361 Mar, Chronic pain G89.29 [facility] [address] 05344- 7194 Feb, Chronic pain G89.29 [facility] [address] 69272- 3968 Feb, Chronic pain G89.29 [facility] [id number] [place] [address] 84861- 4184 Jan, Goiter E04.9 [facility] [address] 21937- 7179 Jan, Chronic pain G89.29 ; Hyperlipidemia E78.5 ; Essential ( primary) hypertension I10 ; Anuria R34 and Goiter E04.9 [facility] [address] 26930- 0267 Jan, Chronic pain G89.29 [facility] [id number] [place] [address] 38504- 6033 November, Chronic pain G89.29 [facility] [id number] [address] November, [facility] [id number] [place] [address] 47530- 8585 Oct, Chronic pain G89.29 [facility] [id number] [place] [address] 27824- 6606 Oct, Chronic pain G89.29 and Primary insomnia F51.01 [facility] [id number] [place] [address] 62856- 7211 Sep, Chronic pain G89.29 [facility] [id number] [place] [address] 71417- 1689 Sep, [facility] [id number] [place] [address] 76442- 0134 Sep, Chronic pain G89.29 and Primary insomnia F51.01 [facility] [id number] [place] [address] 25865- 5753 Sep, [facility] [id number] [place] [address] 26258- 7017 Sep, Transient cerebral ischemia, unspecified type G45.9 ; Acute midline low back pain without sciatica M54.5 and Seborrheic keratosis L82.1 [facility] [address] [place] [address] 27034- 3882 Sep, Chronic pain G89.29 [facility] [id number] [place] [address] 83741- 8818 Aug, Chronic pain G89.29 and Primary insomnia F51.01 [facility] [id number] [place] [address] 07446- 7328 Aug, Chronic pain G89.29 [facility] [id number] [place] [address] 88686- 8056 Jul, Chronic pain G89.29 and Primary insomnia F51.01 [facility] [id number] [place] [address] 68485- 1808 Jul, Chronic pain G89.29 [facility] [id number] [place] [address] 64069- 9548 Jun, Chronic pain G89.29 ; Essential (primary) hypertension I10 ; Polyneuropathy G62.9 ; Drug-induced constipation K59.03 and Primary insomnia F51.01 [facility] [id number] [place] [address] 45657- 3493 Jun, Chronic pain G89.29 [facility] [address] 83331- 5242 Jun, [facility] [id number] [place] [address] 31875- 3113 Jun, Insomnia G47.00 ; Chronic pain G89.29 and Seborrheic keratosis L82.1 [facility] [id number] [place] [address] 18624- 8653 Apr, Chronic pain G89.29 [facility] [id number] [place] [address] 54538- 0997 Mar, Chronic pain G89.29 [facility] [id number] [place] [address] 42020- 9203 Feb, Chronic pain G89.29 [facility] [id number] [place] [address] 94409- 5771 Jan, Chronic pain G89.29 [facility] [id number] [place] [address] 68996- 1102 Dec, [facility] [address] 13441- 4645 Dec, Chronic pain G89.29 [facility] [id number] [place] [address] 73263- 6156 13 Dec, 2015 Other chronic pain G89.29 ; Hyperlipidemia E78.5 and Polyneuropathy G62.9 [facility] [id number] [place] [address] 95164- 5026 Dec, [facility] [facility] [address] 48264- 2610 November, Chronic pain G89.29 [facility] [id number] [place] [address] 79102- 3251 November, [facility] [address] 6[address]31- 8373 November, Chronic pain G89.29 ; Stye H00.019 ; Insomnia G47.00 ; Leg cramps R25.2 and GERD (gastroesophageal reflux disease) K21.9 [facility] [id number] [place] [address] 02971- 2887 Oct, Other chronic pain G89.29 [facility] [id number] [place] [address] 54403- 6881 Oct, Hyperlipidemia E78.5 [facility] [id number] [place] [address] 94727- 3998 Sep, Essential (primary) hypertension I10 [facility] [id number] [place] [address] 44733- 3202 Sep, Other chronic pain G89.29 ; Polyneuropathy G62.9 ; Essential (primary) hypertension I10 and Personal history of transient ischemic attack (TIA), 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 [facility] [id number] [place] [address] 76442- 1433 Sep, [place] [id number] [place] [address] 59672- 9504 Sep, [place] [id number] [place] [address] 98102- 3151 Aug, [facility] [id number] [place] [address] 16227- 5204 Jul, [facility] [id number] [place] [address] 34619- 8607 Jul, [facility] [address] 11704- 8079 Jun, Other chronic pain G89.29 and Gastroesophageal reflux disease, esophagitis presence not specified K21.9 [place] [id number] [place] [address] 15681- 1959 May, Chronic pain syndrome 338.4 and Polyneuropathy G62.[address] 0[address]- 8623 May, Enlarged prostate with lower urinary tract symptoms N40.1 ; Other retention of urine R33.8 and Peripheral polyneuropathy G62.[address] 12899- 1380 Apr, [address] 78624- 8063 Mar, [address] 36492- 0302 Mar, Neuropathy 355.9 and Chronic pain 338.[address] 71976- 8211 Feb, Neuropathy 355.9 and TIA (transient ischemic attack) 435.[address] 93493- 8353 Dec, Neuropathy 355.9 ; Chronic pain 338.29 ; Restless legs 333.94 ; Seborrheic keratoses 702.19 and GERD (gastroesophageal reflux disease) 530.[address] 14570- 2255 Dec, [address] 85921- 8644 Oct, [address] 21655- 9377 Oct, [facility] [place] [facility] [address] [id number] [place] [address]- 4887 Sep, [facility] [place] [facility] [address] [id number] [place] [address]- 8542 Sep, [facility] [place] [facility] [address] [id number] [place] [address]- 9542 Sep, [facility] [place] [facility] [address] [id number] [place] [address]- 8972 Sep, [facility] [place] [facility] [address] [id number] [place] [address]- 0935 Aug, [facility] [place] [facility] [address] [id number] [place] [address]- 5492 Aug, [facility] [place] [facility] [address] [id number] [place] [address]- 7886 Jul, [facility] [place] [facility] [address] [id number] [address]- 0388 Jul, [facility] [place] [facility] [address] [id number] [place] [address]- 7838 Jul, [facility] [place] [facility] [address] [id number] [address]- 4353 Jul, [facility] [place] [facility] [address] [id number] [address]- 2813 Jul, [facility] [place] [facility] [address] [id number] [place] [address]- 3046 Jul, [facility] [place] [facility] [address] [id number] [place] [address]- 5173 Jul, [facility] [place] [facility] [address] [id number] [place] [address]- 1147 Jul, [facility] [place] [facility] [address] [id number] [place] [address]- 9772 Jun, [facility] [place] [facility] [address] [id number] [address]409 Jun, IMMUNIZATIONS No Known Immunizations SOCIAL HISTORY Never Assessed REASON FOR VISIT Controlled Med Refill 11/09/17 PLAN OF CARE VITAL SIGNS MEDICATIONS Medication Instructions Dosage Frequency Start Date End Date Duration Status Fentanyl 37.5 MCG/HR Transdermal Change every 72 hours 1 patch to skin Oct, 28 days Active Hydrocodone-Acetaminophen 10-325 MG Orally twice a day 1 tablet as needed 12h Oct, 28 days Active RESULTS No Results PROCEDURES [...]
--- OUTSIDE RECORDS SUMMARY | 2018-10-16 09:00 | XMS REPORT ---
Author Author RADHIKA CERVANTES [facility] Address [address] [place] [address] Care Team Providers Care Carrier Blower Name Role Phone RADHIKA CERVANTES Unavailable PROBLEMS Type Condition ICD9-CM Code OHI06-VH Code Onset Dates Condition Status SNOMED Code Problem Leg cramps R25.2 Active 874217314 Problem Chronic pain G89.29 Active 61770909 Problem Stye H00.019 Active 8794340 Problem Numbness of left hand R20.0 Active 102343986 Problem Gastro-esophageal reflux disease without esophagitis K21.9 Active 280547140 Problem Primary insomnia F51.01 Active 4024365 Problem Insomnia G47.00 Active 537100571 Problem Goiter E04.9 Active 8655444 Problem Transient cerebral ischemia, unspecified type G45.9 Active 341620781 Problem Eye exam, routine Z01.00 Active 597364207 Problem Other insomnia G47.09 Active 213114695 Problem Polyneuropathy G62.9 Active 98239569 Problem Essential (primary) hypertension I10 Active 02454449 Problem Other headache syndrome G44.89 Active 580177891 Problem Personal history of transient ischemic attack (TIA), 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 Active 461171886 Problem Glaucoma of both eyes, unspecified glaucoma H40.9 Active 11444542 Problem Hyperlipidemia E78.5 Active 78670981 ALLERGIES No Information ENCOUNTERS Encounter Location Date Diagnosis [facility], [place] [address] [facility] [id number] [address] Jan, [facility], [place] [id number] [address] 7[address] Jan, Chronic pain G89.29 [facility], [place] [address] [facility] [id number] [place] [address] 67[address] Dec, Chronic pain G89.29 [facility], [place] [id number] [place] [address] 37282- 4409 November, Chronic pain G89.29 [facility], [place] [id number] [place] [address] 55046- 1457 Oct, Chronic pain G89.29 [facility], [place] [id number] [place] [address] 37671- 5899 Oct, Chronic pain G89.29 [facility], [place] [id number] [place] [address] 33215- 3980 Sep, Chronic pain G89.29 [facility] [id number] [place] [address] 95013- 5997 Sep, Polyneuropathy G62.9 ; Chronic pain G89.29 and Gastro- esophageal reflux disease without esophagitis K21.9 [place] [id number] [place] [address] 48628- 5307 Sep, Chronic pain G89.29 [facility], [place] [id number] [place] [address] 66832- 5305 Jul, [place] [id number] [place] [address] 83475- 0579 Jul, Chronic pain G89.29 ; Polyneuropathy G62.9 and Numbness of left hand R20.0 [facility] [id number] [place] [address] 07000- 0668 Jul, Chronic pain G89.29 ; Polyneuropathy G62.9 ; Gastro- esophageal reflux disease without esophagitis K21.9 ; Numbness of left hand R20.0 and Primary insomnia F51.01 [facility] [place] [id number] [place] [address] 72604- 7630 Jul, Chronic pain G89.29 [facility] [place] [id number] [place] [address] 42097- 1426 Jun, Chronic pain G89.29 [facility] [id number] [place] [address] 18912- 0469 May, Chronic pain G89.29 [facility], [place] [id number] [place] [address] 43682- 7853 Apr, Chronic pain G89.29 [facility], [place] [id number] [place] [address] 81952- 0453 Apr, Chronic pain G89.29 and Polyneuropathy G62.9 [facility], [place] [id number] [place] [address] 31140- 7351 Mar, Chronic pain G89.29 [facility], [place] [address] [address]90- 8202 Feb, Chronic pain G89.29 [facility], [place] [id number] [place] [address] 65392- 6633 Feb, Chronic pain G89.29 [facility], [place] [id number] [place] [address] 80370- 3873 Jan, Goiter E04.9 [facility], [place] [id number] [place] [address] 36343- 1723 Jan, Chronic pain G89.29 ; Hyperlipidemia E78.5 ; Essential ( primary) hypertension I10 ; Anuria R34 and Goiter E04.9 [facility], [place] [id number] [place] [address] 58363- 8401 Jan, Chronic pain G89.29 [facility], [place] [id number] [place] [address] 73608- 1100 November, Chronic pain G89.29 [facility], [place] [id number] [place] [address] 92048- 6870 November, [facility], [place] [id number] [place] [address] 63638- 5970 Oct, Chronic pain G89.29 [facility], [place] [id number] [place] [address] 97376- 8920 Oct, Chronic pain G89.29 and Primary insomnia F51.01 [facility], [place] [id number] [place] [address] 16770- 8650 Sep, Chronic pain G89.29 [facility], [place] [id number] [place] [address] 96119- 7083 Sep, [facility], [place] [id number] [place] [address] 60581- 7707 Sep, Chronic pain G89.29 and Primary insomnia F51.01 [facility], [place] [id number] [place] [address] 78202- 7704 Sep, [facility] [id number] [place] [address] 36027- 4986 Sep, Transient cerebral ischemia, unspecified type G45.9 ; Acute midline low back pain without sciatica M54.5 and Seborrheic keratosis L82.1 [facility], [place] [id number] [place] [address] 40673- 9239 Sep, Chronic pain G89.29 [facility], [place] [id number] [place] [address] 54957- 3001 Aug, Chronic pain G89.29 and Primary insomnia F51.01 [facility] [id number] [place] [address] 97692- 7236 Aug, Chronic pain G89.29 [facility], [place] [id number] [place] [address] 47023- 4973 Jul, Chronic pain G89.29 and Primary insomnia F51.01 [place] [place] [id number] [place] [address] 90181- 4889 Jul, Chronic pain G89.29 [facility], [place] [id number] [place] [address] 30353- 1801 Jun, Chronic pain G89.29 ; Essential (primary) hypertension I10 ; Polyneuropathy G62.9 ; Drug-induced constipation K59.03 and Primary insomnia F51.01 [facility], [place] [id number] [place] [address] 37987- 9182 Jun, Chronic pain G89.29 [facility], [place] [id number] [place] [address] 77032- 6108 Jun, [facility], [place] [id number] [place] [address] 99306- 6753 Jun, Insomnia G47.00 ; Chronic pain G89.29 and Seborrheic keratosis L82.1 [facility], [place] [id number] [place] [address] 98939- 4712 Apr, Chronic pain G89.29 [facility], [place] [address] 74791- 9898 Mar, Chronic pain G89.29 [facility], [place] [address] 77802- 0666 Feb, Chronic pain G89.29 [facility], [place] [id number] [place] [address] 19569- 9837 Jan, Chronic pain G89.29 [facility], [place] [address] 58476- 2346 Dec, [facility], [place] [address] 28725- 6729 Dec, Chronic pain G89.29 [facility], [place] [id number] [place] [address] 67664- 6199 Dec, Other chronic pain G89.29 ; Hyperlipidemia E78.5 and Polyneuropathy G62.9 [facility], [place] [address] 72271- 9991 Dec, [facility], [place] [id number] [place] [address] 93253- 2496 November, Chronic pain G89.29 [facility], [place] [address] 12296- 7720 November, [facility], [place] [id number] [place] [address] 88422- 1476 November, Chronic pain G89.29 ; Stye H00.019 ; Insomnia G47.00 ; Leg cramps R25.2 and GERD (gastroesophageal reflux disease) K21.9 [facility] [id number] [place] [address] 55745- 5776 Oct, Other chronic pain G89.29 [facility], [place] [id number] [place] [address] 54898- 5500 Oct, Hyperlipidemia E78.5 [place] [id number] [place] [address] 60873- 3594 Sep, Essential (primary) hypertension I10 [place] [id number] [place] [address] 74755- 3531 Sep, Other chronic pain G89.29 ; Polyneuropathy G62.9 ; Essential (primary) hypertension I10 and Personal history of transient ischemic attack (TIA), 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 [facility] [id number] [place] [address] 62361- 2526 Sep, [place] [id number] [place] [address] 31638- 4411 Sep, [facility], [place] [id number] [place] [address] 41082- 7799 Aug, [facility], [place] [id number] [place] [address] 74206- 3043 Jul, [facility], [place] [id number] [place] [address] 60256- 0566 Jul, [facility], [place] [id number] [place] [address] 76577- 1013 Jun, Other chronic pain G89.29 and Gastroesophageal reflux disease, esophagitis presence not specified K21.9 [facility], [place] [address] [place] [address]- 5501 May, Chronic pain syndrome 338.4 and Polyneuropathy G62.9 [place] [address] 45199- 3437 May, Enlarged prostate with lower urinary tract symptoms N40.1 ; Other retention of urine R33.8 and Peripheral polyneuropathy G62.9 [place] [address] 64565- 2041 Apr, [place] [address] 99315- 1487 16 Mar, 2015 [place] [address] 90307- 3381 Mar, Neuropathy 355.9 and Chronic pain 338.29 [place] [address] 07397- 9417 Feb, Neuropathy 355.9 and TIA (transient ischemic attack) 435.9 [place] [address] 54668- 9631 16 Dec, 2014 Neuropathy 355.9 ; Chronic pain 338.29 ; Restless legs 333.94 ; Seborrheic keratoses 702.19 and GERD (gastroesophageal reflux disease) 530.81 [place] [id number] [place] [address] 21415- 8157 Dec, [place] [id number] [place] [address] 83944- 0524 14 Oct, 2014 [place] [id number] [place] [address] 78862- 9258 Oct, [facility], [place] [address] [id number]- 3369 Sep, [facility], [place] [id number] [place] [address] 22176- 2408 Sep, [facility], [place] [address] 52247- 1853 Sep, [facility], [place] [id number] [address]- 5138 Sep, [facility], [place] [address] [address]- 4866 Aug, [facility], [place] [address] [address]- 9738 Aug, [facility], [place] [address] [address]- 2312 Jul, [facility], [place] [address] [address]- 2851 Jul, [facility], [place] [address] [address]- 7386 Jul, [facility], [place] [address] [address]- 0046 Jul, [facility], [place] [address] [address]- 8755 Jul, [facility], [place] [address] 5107 Jul, [facility], [place] [address] [address]- 2247 Jul, [facility], [place] [id number] [address]- 9179 Jul, [facility], [place] [id number] [address]- 0145 Jun, [facility], [place] [id number] [address]- 1913 Jun, IMMUNIZATIONS No Known Immunizations SOCIAL HISTORY Never Assessed REASON FOR VISIT [facility] Meds PLAN OF CARE VITAL SIGNS MEDICATIONS Medication [...]
--- OUTSIDE RECORDS SUMMARY | 2018-10-16 09:00 | XMS REPORT ---
Author Author RADHIKA CERVANTES [facility] Address [address] [place] [address] Care Team Providers Care Relocation Coordinator Name Role Phone RADHIKA CERVANTES Unavailable PROBLEMS Type Condition ICD9-CM Code ITN80-UI Code Onset Dates Condition Status SNOMED Code Problem Leg cramps R25.2 Active 933216549 Problem Chronic pain G89.29 Active 53008151 Problem Stye H00.019 Active 8807080 Problem Numbness of left hand R20.0 Active 757082690 Problem Gastro-esophageal reflux disease without esophagitis K21.9 Active 638563240 Problem Primary insomnia F51.01 Active 9831787 Problem Insomnia G47.00 Active 997500405 Problem Goiter E04.9 Active 1709460 Problem Transient cerebral ischemia, unspecified type G45.9 Active 507629592 Problem Eye exam, routine Z01.00 Active 455108136 Problem Other insomnia G47.09 Active 845111210 Problem Polyneuropathy G62.9 Active 56920138 Problem Essential (primary) hypertension I10 Active 93169674 Problem Other headache syndrome G44.89 Active 859239461 Problem Personal history of transient ischemic attack (TIA), 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 [id number] [address] Jan, [facility] [id number] [address] Dec, Chronic pain G89.29 [facility] [id number] [place] [address] 06902- 2548 November, Chronic pain G89.29 [facility] [id number] [place] [address] 92753- 6530 Oct, Chronic pain G89.29 [facility] [id number] [place] [address] 82673- 4907 Oct, Chronic pain G89.29 [facility] [id number] [place] [address] 39170- 9651 Sep, Chronic pain G89.29 [facility] [id number] [place] [address] 52602- 0104 Sep, Polyneuropathy G62.9 ; Chronic pain G89.29 and Gastro- esophageal reflux disease without esophagitis K21.9 [facility] [id number] [place] [address] 94424- 7947 Sep, Chronic pain G89.29 [facility] [id number] [place] [address] 71666- 9409 Jul, [facility] [id number] [place] [address] 56349- 3382 Jul, Chronic pain G89.29 ; Polyneuropathy G62.9 and Numbness of left hand R20.0 [facility] [id number] [place] [address] 91336- 4202 Jul, Chronic pain G89.29 ; Polyneuropathy G62.9 ; Gastro- esophageal reflux disease without esophagitis K21.9 ; Numbness of left hand R20.0 and Primary insomnia F51.01 [facility] [id number] [place] [address] 43714- 1817 Jul, Chronic pain G89.29 [facility] [id number] [place] [address] 19734- 1319 Jun, Chronic pain G89.29 [facility] [id number] [place] [address] 14596- 6577 May, Chronic pain G89.29 [facility] [address] [place] [address] 17692- 7766 Apr, Chronic pain G89.29 [facility] [id number] [place] [address] 70246 2546 Apr, Chronic pain G89.[address] [facility] [id number] [place] [address] 89429- 7777 Mar, Chronic pain G89.29 [facility] [id number] [place] [address] 95515 2545 Feb, Chronic pain G89.29 [facility] [id number] [place] [address] 49004- 6459 Feb, Chronic pain G89.29 [facility] [id number] [place] [address] 76072- 6433 Jan, Goiter E04.9 [facility] [id number] [place] [address] 51539 2549 Jan, Chronic pain G89.29 ; Hyperlipidemia E78.5 ; Essential ( primary) hypertension I10 ; Anuria R[address] [facility] [address] [place] [address] 90677- 2549 Jan, Chronic pain G89.29 [facility] [id number] [place] [address] 11827- 3242 November, Chronic pain G89.29 [facility] [id number] [place] [address] 39903- 5834 November, [facility] [id number] [place] [address] 54783- 8450 Oct, Chronic pain G89.29 [facility] [id number] [place] [address] 59475- 8498 Oct, Chronic pain G89.29 and Primary insomnia F51.01 [facility] [address] [place] [address] 28968- 6026 Sep, Chronic pain G89.29 [facility] [id number] [place] [address] 28573- 7896 Sep, [facility] [id number] [place] [address] 68875- 9380 Sep, Chronic pain G89.29 and Primary insomnia F51.01 [facility] [id number] [place] [address] 77014- 3263 Sep, [address] [id number] [place] [address] 02130- 4643 Sep, Transient cerebral ischemia, unspecified type G45.9 ; Acute midline low back pain without sciatica M54.5 and Seborrheic keratosis L82.1 [facility] [id number] [place] [address] 86772- 4033 Sep, Chronic pain G89.29 [facility] [id number] [place] [address] 99921- 1660 Aug, Chronic pain G89.29 and Primary insomnia F51.01 [facility] [id number] [place] [address] 42193- 1907 Aug, Chronic pain G89.29 [facility] [id number] [place] [address] 19639- 3367 Jul, Chronic pain G89.29 and Primary insomnia F51.01 [facility] [id number] [place] [address] 35377- 5770 Jul, Chronic pain G89.29 [facility] [id number] [place] [address] 75580- 3851 Jun, Chronic pain G89.29 ; Essential (primary) hypertension I10 ; Polyneuropathy G62.9 ; Drug-induced constipation K59.03 and Primary insomnia F51.01 [address] [place] [address] Jun, Chronic pain G89.29 [facility] [id number] [place] [address] 26695- 0936 Jun, [facility] [id number] [place] [address] 19882 2546 Jun, Insomnia G47.00 ; Chronic pain G89.29 and Seborrheic keratosis L82.1 [facility] [id number] [place] [address] 92516- 0243 Apr, Chronic pain G89.29 [facility] [id number] [place] [address] 27805- 1633 Mar, Chronic pain G89.29 [facility] [id number] [place] [address] 44061- 4797 Feb, Chronic pain G89.29 [facility] [id number] [place] [address] 74916- 9494 Jan, Chronic pain G89.29 [facility] [id number] [place] [address] 05496- 8686 Dec, [facility] [id number] [place] [address] 83891- 8765 Dec, Chronic pain G89.29 [facility] [address] [place] [address] 27938- 5759 Dec, Other chronic pain G89.29 ; Hyperlipidemia E78.[address] [facility] [id number] [place] [address] 34806- 3262 Dec, [facility] [id number] [place] [address] 65113- 2543 November, Chronic pain G89.29 [facility] [address] [place] [address] 18950- 6385 November, [facility] [id number] [place] [address] 55171- 7923 November, Chronic pain G89.29 ; Stye H00.019 ; Insomnia G47.00 ; Leg cramps R25.2 and GERD (gastroesophageal reflux disease) K21.9 [address] [id number] [place] [address] 27933- 6009 Oct, Other chronic pain G89.29 [address] 03995- 6092 Oct, Hyperlipidemia E78.5 [address] 74662- 2650 Sep, Essential (primary) hypertension I10 [address] 71499- 9281 30 Sep, 2015 Other chronic pain G89.29 ; Polyneuropathy G62.9 ; Essential (primary) hypertension I10 and Personal history of transient ischemic attack (TIA), 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 [address] [id number] [place] [address] 81596- 1945 Sep, [address] 02610- 5268 Sep, [address] [id number] [place] [address] 33437- 7827 Aug, [address] [id number] [place] [address] 13152- 5021 Jul, [address] [id number] [place] [address] 77161- 3973 Jul, [address] 16143- 9692 Jun, Other chronic pain G89.29 and Gastroesophageal reflux disease, esophagitis presence not specified K21.9 [address] [id number] [place] [address] 42323- 4489 May, Chronic pain syndrome 338.[address] [facility] [id number] [place] [address] 73356- 2235 May, Enlarged prostate with lower urinary tract symptoms N40.1 ; Other retention of urine R33.8 and Peripheral polyneuropathy G62.9 [facility] [id number] [place] [address] 24578- 4579 14 Apr, 2015 [facility] [address] 913069- 2444 16 Mar, 2015 [facility] [id number] [place] [address] 38397- 2497 Mar, Neuropathy 355.9 and Chronic pain 338.29 [id number] [place] [address] 67627- 5194 Feb, Neuropathy 355.9 and TIA (transient ischemic attack) 435.9 [address] 12648- 7909 Dec, Neuropathy 355.9 ; Chronic pain 338.29 ; Restless legs 333.94 ; Seborrheic keratoses 702.19 and GERD (gastroesophageal reflux disease) 530.81 [facility] [id number] [place] [address] 68926- 2961 Dec, [facility] [id number] [place] [address] 67882- 9987 Oct, [facility] [id number] [place] [address] 75777- 3337 Oct, [facility] [id number] [place] [address] 66442- 0811 Sep, [facility] [address] 966163- 9147 Sep, [facility] [id number] [place] [address] 47421- 4531 Sep, [facility] [address] [place] [address]- 1136 Sep, [facility] [address] [address] 5191 Aug, [facility] [address] [address] 4036 Aug, [facility] [address] [address]- 7501 Jul, [facility] [address] [address]- 3185 Jul, [facility] [address] [place] [address] 97378- 7905 Jul, [facility] [address] [address]- 4386 Jul, [facility] [address] [address]- 4509 Jul, [facility] [address] [address]- 3042 Jul, [facility] [address] [address]- 7516 Jul, [facility] [address] [address]- 0179 Jul, [facility] [id number] [address]- 3486 Jun, [facility] [id number] [address]- 1826 Jun, IMMUNIZATIONS No Known Immunizations SOCIAL HISTORY Never Assessed REASON FOR VISIT Pain management (chronic) - SHERON Zhong, Patient states he has been out of his medications since 09/06 PLAN OF CARE Activity Details Follow Up 3 Months Reason:pain mgmt and fasting labs VITAL SIGNS Height 73 in 2017-09-11 Weight 170.2 lbs 2017-09-11 Temperature 98.1 degrees Fahrenheit 2017-09-11 Heart Rate 68 bpm 2017-09-11 Respiratory Rate 20 2017-09-11 BMI 22.45 kg/m2 2017-09-11 Blood pressure systolic 158 mmHg 2017-09-11 Blood pressure diastolic 92 mmHg 2017-09-11 MEDICATIONS Medication Instructions Dosage Frequency Start Date End Date Duration Status Wrist Splint/Cock-Up/Left L - as directed Jul, lifetime Not-Taking Aspir-81 81 MG Orally Once a day 1 tablet 24h Not-Taking Fentanyl 37.5 MCG/HR Transdermal Change every 72 hours 1 patch to skin Sep, 28 days Active Omeprazole 20 mg TAKE ONE CAPSULE BY MOUTH ONCE DAILY 90 Active Hydrocodone-Acetaminophen 10-325 MG Orally twice a day 1 tablet as needed 12h Sep, 28 days Active Lipitor 20 mg Orally Once a day 1 tablet 24h Oct, 90 days Not- Taking Rollator Wheeled walker with seat for use while ambulating Jul, lifetime Active RESULTS Name Result Date Reference Range [employer] 2017-09-11 PROCEDURES Procedure Date Ordered Result Body Site No Charge September 11, 2017 INSTRUCTIONS MEDICATIONS ADMINISTERED No Known Medications MEDICAL [...]
--- OUTSIDE RECORDS SUMMARY | 2018-10-16 09:01 | XMS REPORT ---
Author RADHIKA Feng Organization [employer] Address Unknown Phone Unavailable Care Team Providers Care Position Classification Specialist Name Role Phone RADHIKA CERVANTES CP Unavailable Allergies, Adverse Reactions, Alerts Substance Reaction Event Type Lyrica Info Not Available Drug Allergy Problems Problem Type Condition Code Onset Dates Condition Status Problem Headache 784.0 Active Problem Unspecified hereditary and idiopathic peripheral neuropathy 356.9 Active Problem Essential hypertension, malignant 401.0 Active Assessment Gastroesophageal reflux disease, esophagitis presence not specified K21.9 Active Assessment Other chronic pain G89.29 Active Problem Gastroesophageal reflux disease, esophagitis presence not specified K21.9 Active Problem Chronic pain syndrome 338.4 Active Problem Other chronic pain G89.29 Active Problem Neuropathy 355.9 Active Problem 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], 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 Active Problem Polyneuropathy G62.9 Active Problem TIA (transient ischemic attack) 435.9 Active Medications Medication Code System Code Instructions Start Date End Date Status Dosage Amitriptyline HCl [facility] [address]-45 25 MG Orally Once a day at bedtime Jun 01, 2015 1 tablet Morphine Sulfate ER [facility] [address]-49 15 MG Orally every 12 hrs Jun 01, 2015 1 tablet Aspir-81 [facility] [address]-56 81 MG Orally Once a day 1 tablet Omeprazole [facility] [address]-86 20 MG Orally Once a day Jul 01, 2015 1 capsules Embeda [facility] [address]-27 20-0.8 MG Orally 2 times a day Jul 01, 2015 1 capsule Procedures Procedure Coding System Code Date Office Visit, Est Pt., Level 3 CPT-4 74026 Jul 01, 2015 Vital Signs Date/Time: Jul 01, 2015 Temperature 98.2 F Weight 176.8 lbs Height 73 in BMI 23.32 Index Blood Pressure Diastolic 90 mmHg Blood Pressure Systolic 160 mmHg Cardiac Monitoring Heart Rate 80 bpm Results No Known Results Summary Purpose [employer] Submission
--- OUTSIDE RECORDS SUMMARY | 2018-10-16 09:01 | XMS REPORT ---
Author Author RADHIKA CERVANTES [facility] Address [address] [place] [address] Care Team Providers Care Grease Man Name Role Phone RADHIKA CERVANTES Unavailable PROBLEMS Type Condition ICD9-CM Code [id number] Code Onset Dates Condition Status SNOMED Code Problem Essential (primary) hypertension I10 Active 43255883 Problem Stye H00.019 Active 1053729 Problem Hyperlipidemia E78.5 Active 73458024 Problem Goiter E04.9 Active 5285697 Problem Transient cerebral ischemia, unspecified type G45.9 Active 113223164 Problem Chronic pain G89.29 Active 06049498 Problem Leg cramps R25.2 Active 307304927 Problem Primary insomnia F51.01 Active 6049383 Problem Insomnia G47.00 Active 296681995 Problem Eye exam, routine Z01.00 Active 807165744 Problem Glaucoma of both eyes, unspecified glaucoma H40.9 Active 65053691 Problem Polyneuropathy G62.9 Active 13173941 Problem Other insomnia G47.09 Active 994963099 Problem Gastroesophageal reflux disease, esophagitis presence not specified K21.9 Active 379790491 Problem Other headache syndrome G44.89 Active 647781801 Problem Personal history of transient ischemic attack (TIA), 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
--- OUTSIDE RECORDS SUMMARY | 2018-10-16 09:01 | XMS REPORT ---
Author Author RADHIKA CERVANTES [facility] Address [address] [place] [address] Care Team Providers Care Manager [employer] Name Role Phone RADHIKA CERVANTES Unavailable PROBLEMS Type Condition ICD9-CM Code YWQ01-KI Code Onset Dates Condition Status SNOMED Code Problem Essential (primary) hypertension I10 Active 44318255 Problem Stye H00.019 Active 3711421 Problem Hyperlipidemia E78.5 Active 44575846 Problem Goiter E04.9 Active 7053778 Problem Transient cerebral ischemia, unspecified type G45.9 Active 482826238 Problem Chronic pain G89.29 Active 72847129 Problem Leg cramps R25.2 Active 285004599 Problem Primary insomnia F51.01 Active 8797744 Problem Insomnia G47.00 Active 140612786 Problem Eye exam, routine Z01.00 Active 643648343 Problem Glaucoma of both eyes, unspecified glaucoma H40.9 Active 67083306 Problem Polyneuropathy G62.9 Active 23742596 Problem Other insomnia G47.09 Active 163647498 Problem Gastroesophageal reflux disease, esophagitis presence not specified K21.9 Active 046017863 Problem Other headache syndrome G44.89 Active 365914693 Problem Personal history of transient ischemic attack (TIA), 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
--- OUTSIDE RECORDS SUMMARY | 2018-10-16 09:01 | XMS REPORT ---
Author RADHIKA Feng Organization [employer] Address Unknown Phone Unavailable Care Team Providers Care Stator Winder Name Role Phone RADHIKA CERVANTES CP Unavailable Allergies No Known Allergies Problems Problem Type Condition Code Onset Dates Condition Status Problem Chronic pain syndrome 338.4 Active Problem Other chronic pain G89.29 Active Problem Gastroesophageal reflux disease, esophagitis presence not specified K21.9 Active Problem Stye H00.019 Active Problem Insomnia G47.00 Active Problem Chronic pain G89.29 Active Problem Essential (primary) hypertension I10 Active Problem Personal history of transient ischemic attack (TIA), 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 Active Problem Leg cramps R25.2 Active Problem Hyperlipidemia E78.5 Active Problem Eye exam, routine Z01.00 Active Problem Headache 784.0 Active Assessment Chronic pain G89.29 Active Problem Glaucoma of both eyes, unspecified glaucoma H40.9 Active Problem 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], 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
--- OUTSIDE RECORDS SUMMARY | 2018-10-16 09:01 | XMS REPORT ---
Author Author RADHIKA CERVANTES [facility] Address [address] [place] [address] Care Team Providers Care Retention Manager Name Role Phone RADHIKA CERVANTES Unavailable PROBLEMS Type Condition ICD9-CM Code DGX90-NA Code Onset Dates Condition Status SNOMED Code Problem Leg cramps R25.2 Active 397129149 Problem Chronic pain G89.29 Active 68698529 Problem Stye H00.019 Active 5930877 Problem Numbness of left hand R20.0 Active 203747184 Problem Gastro-esophageal reflux disease without esophagitis K21.9 Active 214380106 Problem Primary insomnia F51.01 Active 6988860 Problem Insomnia G47.00 Active 589893556 Problem Goiter E04.9 Active 2008671 Problem Transient cerebral ischemia, unspecified type G45.9 Active 561554304 Problem Eye exam, routine Z01.00 Active 116737101 Problem Other insomnia G47.09 Active 425259174 Problem Polyneuropathy G62.9 Active 69354883 Problem Essential (primary) hypertension I10 Active 29466163 Problem Other headache syndrome G44.89 Active 401012981 Problem Personal history of transient ischemic attack (TIA), 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 Active 058175607 Problem Glaucoma of both eyes, unspecified glaucoma H40.9 Active 08388750 Problem Hyperlipidemia E78.5 Active 15731461 ALLERGIES No Information ENCOUNTERS Encounter Location Date Diagnosis [facility] [address] [facility] [id number] [address] Jan, [facility] [address] [address] November, Chronic pain G89.29 [facility] [id number] [address] Oct, Chronic pain G89.29 [facility] [address] [address] Oct, Chronic pain G89.29 [facility] [id number] [place] [address] 58800- 0698 Sep, Chronic pain G89.29 [facility] [id number] [place] [address] 40127- 2287 Sep, Polyneuropathy G62.9 ; Chronic pain G89.29 and Gastro- esophageal reflux disease without esophagitis K21.9 [facility] [id number] [place] [address] 99624- 5438 Sep, Chronic pain G89.29 [facility] [id number] [place] [address] 99124- 3022 Jul, [facility] [id number] [place] [address] 44867- 7270 Jul, Chronic pain G89.29 ; Polyneuropathy G62.9 and Numbness of left hand R20.0 [facility] [id number] [place] [address] 37114- 1098 Jul, Chronic pain G89.29 ; Polyneuropathy G62.9 ; Gastro- esophageal reflux disease without esophagitis K21.9 ; Numbness of left hand R20.0 and Primary insomnia F51.01 [facility] [id number] [place] [address] 60996- 8904 Jul, Chronic pain G89.29 [facility] [id number] [place] [address] 05176- 7382 Jun, Chronic pain G89.29 [facility] [id number] [place] [address] 80369- 5059 May, Chronic pain G89.29 [facility] [id number] [place] [address] 75122- 3843 Apr, Chronic pain G89.29 [facility] [id number] [place] [address] 31644- 8797 Apr, Chronic pain G89.29 and Polyneuropathy G62.9 [facility] [id number] [place] [address] 84663- 2688 Mar, Chronic pain G89.29 [facility] [id number] [place] [address] 38674- 0354 Feb, Chronic pain G89.29 [facility] [address] [address]- [address]199 Feb, Chronic pain G89.29 [facility] [address] [address]- [address]49 Jan, Goiter E04.9 [facility] [id number] [place] [address] 09400- 4481 Jan, Chronic pain G89.29 ; Hyperlipidemia E78.5 ; Essential ( primary) hypertension I10 ; Anuria R34 and Goiter E04.9 [facility] [id number] [place] [address] 39104- 9569 Jan, Chronic pain G89.29 [facility] [id number] [place] [address] 84555- 1361 November, Chronic pain G89.29 [facility] [id number] [place] [address] 71323- 5906 November, [facility] [id number] [place] [address] 07866- 6105 Oct, Chronic pain G89.29 [facility] [id number] [place] [address] 46984- 9816 Oct, Chronic pain G89.29 and Primary insomnia F51.01 [facility] [id number] [place] [address] 30942- 5532 Sep, Chronic pain G89.29 [facility] [address] 53891- 0013 Sep, [facility] [id number] [place] [address] 46860- 1174 Sep, Chronic pain G89.29 and Primary insomnia F51.01 [facility] [id number] [place] [address] 80554- 3906 Sep, [address] [id number] [place] [address] 13515- 4794 Sep, Transient cerebral ischemia, unspecified type G45.9 ; Acute midline low back pain without sciatica M54.5 and Seborrheic keratosis L82.1 [place] [facility] [id number] [place] [address] 37659- 1047 Sep, Chronic pain G89.29 [place] [facility] [id number] [place] [address] 76078- 6881 Aug, Chronic pain G89.29 and Primary insomnia F51.01 [place] [facility] [id number] [place] [address] 64279- 1377 Aug, Chronic pain G89.29 [place] [facility] [id number] [place] [address] 09255- 2914 Jul, Chronic pain G89.29 and Primary insomnia F51.01 [place] [facility] [id number] [place] [address] 89670- 4391 Jul, Chronic pain G89.29 [facility] [id number] [place] [address] 37859- 1244 Jun, Chronic pain G89.29 ; Essential (primary) hypertension I10 ; Polyneuropathy G62.9 ; Drug-induced constipation K59.03 and Primary insomnia F51.01 [place] [facility] [id number] [place] [address] 14533- 6173 Jun, Chronic pain G89.29 [facility] [id number] [place] [address] 39529- 9909 Jun, [facility] [id number] [place] [address] 33153- 3963 Jun, Insomnia G47.00 ; Chronic pain G89.29 and Seborrheic keratosis L82.1 [facility] [id number] [place] [address] 80111- 6636 Apr, Chronic pain G89.29 [facility] [id number] [place] [address] 32337- 6839 Mar, Chronic pain G89.29 [place] [id number] [place] [address] 53932- 7225 Feb, Chronic pain G89.29 [place] [facility] [id number] [place] [address] 84841- 9272 Jan, Chronic pain G89.29 [place] [facility] [id number] [place] [address] 50588- 3490 Dec, [place] [id number] [place] [address] 93274- 7338 Dec, Chronic pain G89.29 [place] [facility] [id number] [place] [address] 84389- 6029 13 Dec, 2015 Other chronic pain G89.29 ; Hyperlipidemia E78.5 and Polyneuropathy G62.9 [place] [facility] [id number] [place] [address] 86716- 3491 Dec, [place] [id number] [place] [address] 19466- 5372 November, Chronic pain G89.29 [place] [id number] [place] [address] 15102- 7635 November, [place] [id number] [place] [address] 48978- 5297 November, Chronic pain G89.29 ; Stye H00.019 ; Insomnia G47.00 ; Leg cramps R25.2 and GERD (gastroesophageal reflux disease) K21.9 [facility] [id number] [place] [address] 12967- 3833 Oct, Other chronic pain G89.29 [place] [facility] [id number] [place] [address] 02611- 2366 08 Oct, 2015 Hyperlipidemia E78.5 [place] [facility] [id number] [place] [address] 17910- 2544 31 Sep, 2015 Essential (primary) hypertension I10 [place] [address] 7[address]65- [address]32 30 Sep, 2015 Other chronic pain G89.29 ; Polyneuropathy G62.9 ; Essential (primary) hypertension I10 and Personal history of transient ischemic attack (TIA), 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 [place] [id number] [place] [address] 78951- 0083 Sep, [place] [address] 14668- 1089 Sep, [place] [id number] [place] [address] 11778- 5529 Aug, [place] [id number] [place] [address] 23382- 2194 Jul, [place] [id number] [place] [address] 02921- 0932 Jul, [place] [id number] [place] [address] 35127- 8169 Jun, Other chronic pain G89.29 and Gastroesophageal reflux disease, esophagitis presence not specified K21.9 [place] [address] 49345- 8395 May, Chronic pain syndrome 338.4 and Polyneuropathy G62.9 [facility] [id number] [place] [address] 77787- 5223 May, Enlarged prostate with lower urinary tract symptoms N40.1 ; Other retention of urine R33.8 and Peripheral polyneuropathy G62.9 [facility] [id number] [place] [address] 57657- 7486 14 Apr, 2015 [facility] [id number] [place] [address] 65963- 2752 16 Mar, 2015 [facility] [id number] [place] [address] 31802- 2946 Mar, Neuropathy 355.9 and Chronic pain 338.29 [facility] [id number] [place] [address] 301410- 2120 Feb, Neuropathy 355.9 and TIA (transient ischemic attack) 435.9 [facility] [id number] [place] [address] 514801- 2223 16 Dec, 2014 Neuropathy 355.9 ; Chronic pain 338.29 ; Restless legs 333.94 ; Seborrheic keratoses 702.19 and GERD (gastroesophageal reflux disease) 530.81 [facility] [id number] [place] [address] 86115- 2638 Dec, [facility] [id number] [place] [address] 13578- 0172 Oct, [facility] [id number] [place] [address] 47026- 6105 Oct, [facility] [id number] [place] [address] 22855- 7199 Sep, [facility] [id number] [place] [address] 33718- 4032 Sep, [facility] [id number] [place] [address] 72077- 5033 Sep, [facility] [id number] [place] [address] 297715- 1898 Sep, [facility] [id number] [place] [address] 776047- 8398 Aug, [facility] [address] [address]- 5339 Aug, [facility] [address] [address]- 0491 Jul, [facility] [address] [address]- 6396 Jul, [facility] [id number] [place] [address] 71032- 3632 Jul, [facility] [address] [address]- 0756 Jul, [facility] [id number] [place] [address] 61799- 3630 Jul, [facility] [address] [address]- 1669 Jul, [facility] [address] [place] [address] 73781- 5785 Jul, [facility] [address] [address]- 7053 Jul, [facility] [address] [address]- 7378 Jun, [facility] [address] [address]- 7358 Jun, IMMUNIZATIONS No Known Immunizations SOCIAL HISTORY Never Assessed REASON FOR VISIT Controlled Med Refill PLAN OF CARE VITAL SIGNS MEDICATIONS Medication Instructions Dosage Frequency Start Date End Date Duration Status Fentanyl 37.5 MCG/HR Transdermal Change every 72 hours 1 patch to skin Jul, 28 days Active Percocet 10-325 MG Orally 2 times a day 1 tablet as needed 12h Jul, 28 days Active RESULTS No Results [...]
--- OUTSIDE RECORDS SUMMARY | 2018-10-16 09:01 | XMS REPORT ---
Author Author RADHIKA CERVANTES [facility] Address [address] [place] [address] Care Team Providers Care Drafter Electromechanical Name Role Phone RADHIKA CERVANTES Unavailable PROBLEMS Type Condition ICD9-CM Code [id number] Code Onset Dates Condition Status SNOMED Code Problem Leg cramps R25.2 Active 026659024 Problem Chronic pain G89.29 Active 33056563 Problem Stye H00.019 Active 7177110 Problem Numbness of left hand R20.0 Active 635781904 Problem Gastro-esophageal reflux disease without esophagitis K21.9 Active 419727749 Problem Primary insomnia F51.01 Active 3357330 Problem Insomnia G47.00 Active 917702275 Problem Goiter E04.9 Active 0065034 Problem Transient cerebral ischemia, unspecified type G45.9 Active 135858820 Problem Eye exam, routine Z01.00 Active 127708399 Problem Other insomnia G47.09 Active 115734632 Problem Polyneuropathy G62.9 Active 19061471 Problem Essential (primary) hypertension I10 Active 54952264 Problem Other headache syndrome G44.89 Active 248617120 Problem Personal history of transient ischemic attack (TIA), 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 [id number] [address] Jan, [facility] [id number] [address] Dec, Chronic pain G89.29 [facility] [id number] [address] November, Chronic pain G89.29 [facility] [address] [place] [address] 73479- 3390 Oct, Chronic pain G89.29 [facility] [id number] [place] [address] 73496- 9339 Oct, Chronic pain G89.29 [facility] [id number] [place] [address] 09798- 0946 Sep, Chronic pain G89.29 [facility] [id number] [place] [address] 82454- 7490 Sep, Polyneuropathy G62.9 ; Chronic pain G89.29 and Gastro- esophageal reflux disease without esophagitis K21.9 [place] [facility] [id number] [place] [address] 06279- 6977 Sep, Chronic pain G89.29 [facility] [id number] [place] [address] 33355- 3481 Jul, [facility] [id number] [place] [address] 53419- 2053 Jul, Chronic pain G89.29 ; Polyneuropathy G62.9 and Numbness of left hand R20.0 [place] [address] [place] [address] 15508- 8723 Jul, Chronic pain G89.29 ; Polyneuropathy G62.9 ; Gastro- esophageal reflux disease without esophagitis K21.9 ; Numbness of left hand R20.0 and Primary insomnia F51.01 [facility] [address] [place] [address] 68759- 5436 Jul, Chronic pain G89.29 [place] [id number] [place] [address] 08687- 8688 Jun, Chronic pain G89.29 [facility] [id number] [place] [address] 60636- 4946 May, Chronic pain G89.29 [facility] [id number] [place] [address] 77232- 1871 Apr, Chronic pain G89.29 [facility] [id number] [place] [address] 54056- 0831 Apr, Chronic pain G89.29 and Polyneuropathy G62.9 [facility] [id number] [place] [address] 60712- 6196 Mar, Chronic pain G89.29 [facility] [id number] [place] [address] 29027- 6623 Feb, Chronic pain G89.29 [facility] [address] 56250- 9017 Feb, Chronic pain G89.29 [facility] [address] 60505- 9498 Jan, Goiter E04.9 [facility] [address] 54516- 7787 Jan, Chronic pain G89.29 ; Hyperlipidemia E78.5 ; Essential ( primary) hypertension I10 ; Anuria R34 and Goiter E04.9 [facility] [id number] [place] [address] 88224- 7259 Jan, Chronic pain G89.29 [facility] [id number] [place] [address] 87261- 5230 November, Chronic pain G89.29 [facility] [id number] [place] [address] 52175- 4142 November, [facility] [id number] [place] [address] 63506- 8192 Oct, Chronic pain G89.29 [facility] [id number] [place] [address] 79645- 6640 Oct, Chronic pain G89.29 and Primary insomnia F51.01 [facility] [id number] [place] [address] 35133- 6386 Sep, Chronic pain G89.29 [facility] [id number] [place] [address] 25083- 9830 Sep, [facility] [id number] [place] [address] 01175- 8097 Sep, Chronic pain G89.29 and Primary insomnia F51.01 [facility] [id number] [place] [address] 48675- 8028 Sep, [place] [id number] [place] [address] 47959- 6608 Sep, Transient cerebral ischemia, unspecified type G45.9 ; Acute midline low back pain without sciatica M54.5 and Seborrheic keratosis L82.1 [place] [id number] [place] [address] 09659- 3436 Sep, Chronic pain G89.29 [place] [facility] [id number] [place] [address] 92387- 6690 Aug, Chronic pain G89.29 and Primary insomnia F51.01 [place] [facility] [id number] [place] [address] 53351- 3067 Aug, Chronic pain G89.29 [place] [id number] [place] [address] 77514- 6225 Jul, Chronic pain G89.29 and Primary insomnia F51.01 [place] [facility] [id number] [place] [address] 72141- 0463 Jul, Chronic pain G89.29 [facility] [id number] [place] [address] 54109- 4714 Jun, Chronic pain G89.29 ; Essential (primary) hypertension I10 ; Polyneuropathy G62.9 ; Drug-induced constipation K59.03 and Primary insomnia F51.01 [place] [id number] [place] [address] 18860- 5260 Jun, Chronic pain G89.29 [facility] [id number] [place] [address] 07451- 6216 Jun, [facility] [id number] [place] [address] 53490- 0226 Jun, Insomnia G47.00 ; Chronic pain G89.29 and Seborrheic keratosis L82.1 [facility] [id number] [place] [address] 73148- 7506 Apr, Chronic pain G89.29 [facility] [id number] [place] [address] 36131- 4364 Mar, Chronic pain G89.29 [facility] [id number] [place] [address] 58878- 0434 Feb, Chronic pain G89.29 [facility] [id number] [place] [address] 34651- 9635 Jan, Chronic pain G89.29 [facility] [id number] [place] [address] 43235- 4417 Dec, [facility] [id number] [place] [address] 86662- 0671 Dec, Chronic pain G89.29 [facility] [id number] [place] [address] 37377- 7073 Dec, Other chronic pain G89.29 ; Hyperlipidemia E78.5 and Polyneuropathy G62.9 [facility] [id number] [place] [address] 12803- 2621 Dec, [facility] [id number] [place] [address] 47341- 7270 November, Chronic pain G89.29 [facility] [id number] [place] [address] 36531- 7515 November, [facility] [id number] [place] [address] 24118- 0748 November, Chronic pain G89.29 ; Stye H00.019 ; Insomnia G47.00 ; Leg cramps R25.2 and GERD (gastroesophageal reflux disease) K21.9 [place] [id number] [place] [address] 50015- 7996 Oct, Other chronic pain G89.29 [place] [address] 87330- 4077 Oct, Hyperlipidemia E78.5 [place] [address] 51959- 0207 Sep, Essential (primary) hypertension I10 [place] [address] 88630- 0174 30 Sep, 2015 Other chronic pain G89.29 ; Polyneuropathy G62.9 ; Essential (primary) hypertension I10 and Personal history of transient ischemic attack (TIA), 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 [place] [id number] [place] [address] 43982- 1919 Sep, [place] [address] 15953- 5763 Sep, [place] [id number] [place] [address] 71083- 9034 Aug, [place] [id number] [place] [address] 98801- 5529 Jul, [place] [id number] [place] [address] 47533- 2375 Jul, [place] [address] 21901- 4054 Jun, Other chronic pain G89.29 and Gastroesophageal reflux disease, esophagitis presence not specified K21.9 [place] [id number] [place] [address] 12909- 9495 May, Chronic pain syndrome 338.4 and Polyneuropathy G62.9 [place] [id number] [place] [address] 74891- 8380 11 May, 2015 Enlarged prostate with lower urinary tract symptoms N40.1 ; Other retention of urine R33.8 and Peripheral polyneuropathy G62.9 [facility] [id number] [place] [address] 99799- 6258 14 Apr, 2015 [facility] [id number] [place] [address] 187681- 1524 16 Mar, 2015 [facility] [id number] [place] [address] 662278- 0818 Mar, Neuropathy 355.9 and Chronic pain 338.29 [place] [id number] [place] [address] 20212- 6084 Feb, Neuropathy 355.9 and TIA (transient ischemic attack) 435.9 [place] [id number] [place] [address] 71002- 5000 Dec, Neuropathy 355.9 ; Chronic pain 338.29 ; Restless legs 333.94 ; Seborrheic keratoses 702.19 and GERD (gastroesophageal reflux disease) 530.81 [place] [id number] [place] [address] 40132- 8016 Dec, [facility] [id number] [place] [address] 94875- 0631 14 Oct, 2014 [facility] [id number] [place] [address] 86679- 1704 Oct, [facility] [id number] [place] [address] 78403- 2783 Sep, [facility] [address] 672933- 6573 Sep, [facility] [id number] [place] [address] 18926612- 6808 Sep, [facility] [id number] [place] [address] 733778- 4774 Sep, [facility] [address] [address]- 9774 Aug, [facility] [address] [address]- 2355 Aug, [facility] [address] [address]- 5381 Jul, [facility] [address] [place] [address] 55521- 2514 Jul, [facility] [address] [place] [address] 57564- 6697 Jul, [facility] [address] [place] [address] 21322- 9470 Jul, [facility] [address] [place] [address] 83702- 0556 Jul, [facility] [address] [place] [address] 27518- 4921 Jul, [facility] [address] [place] [address] 59539- 3877 Jul, [facility] [address] [address]- 4111 Jul, [facility] [address] [address]- 8053 Jun, [facility] [address] 9839 Jun, IMMUNIZATIONS No Known Immunizations SOCIAL HISTORY Never Assessed REASON FOR VISIT Controlled Med Refill 10/05/17 PLAN OF CARE VITAL SIGNS MEDICATIONS Medication Instructions Dosage Frequency Start Date End Date Duration Status Fentanyl 37.5 MCG/HR Transdermal Change every 72 hours 1 patch to skin Sep, 28 days Active Hydrocodone-Acetaminophen 10-325 MG Orally twice a day 1 tablet as needed 12h Sep, 28 days Active RESULTS No Results [...]
--- OUTSIDE RECORDS SUMMARY | 2018-10-16 09:02 | XMS REPORT ---
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 Active 780683134 Problem Gastroesophageal reflux disease, esophagitis presence not specified K21.9 Active 106753290 Problem Chronic pain G89.29 Active 02176074 Problem Stye H00.019 Active 6840649 Problem Hyperlipidemia E78.5 Active 86463028 Problem Essential (primary) hypertension I10 Active 01171234 Problem Insomnia G47.00 Active 280147092 Problem Leg cramps R25.2 Active 052097957 Problem Eye exam, routine Z01.00 Active 006878511 Problem Headache 784.0 Active 27252288 Problem Glaucoma of both eyes, unspecified glaucoma H40.9 Active 49204714 Problem 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], 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 Active 053505122 Problem Neuropathy 355.9 Active 599906101 Problem Essential hypertension, malignant 401.0 Active 47053449 Problem TIA (transient ischemic attack) 435.9 Active 953871631 Problem Unspecified hereditary and idiopathic peripheral neuropathy 356.9 Active 936369656 Problem Polyneuropathy G62.9 Active 18594164 ALLERGIES Unknown Allergies SOCIAL HISTORY No smoking Hx information available PLAN OF CARE VITAL SIGNS MEDICATIONS Medication Instructions Dosage Frequency Start Date End Date Duration Status Fentanyl 25 MCG/HR Transdermal Change every 72 hours 1 patch to skin Sep, 28 days Active RESULTS No Results PROCEDURES No Known procedures IMMUNIZATIONS No Known Immunizations
--- OUTSIDE RECORDS SUMMARY | 2018-10-16 09:02 | XMS REPORT ---
Author RADHIKA Feng Organization [employer] Address Unknown Phone Unavailable Care Team Providers Care Remote Pilot Operator Name Role Phone RADHIKA CERVANTES CP Unavailable Allergies, Adverse Reactions, Alerts Substance Reaction Event Type Lyrica Info Not Available Drug Allergy Problems Problem Type Condition Code Onset Dates Condition Status Assessment Other retention of urine R33.8 Active Assessment Peripheral polyneuropathy G62.9 Active Problem Neuropathy 355.9 Active Problem 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], 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 Active Problem TIA (transient ischemic attack) 435.9 Active Problem Headache 784.0 Active Assessment Enlarged prostate with lower urinary tract symptoms N40.1 Active Problem Unspecified hereditary and idiopathic peripheral neuropathy 356.9 Active Problem Essential hypertension, malignant 401.0 Active Medications Medication Code System Code Instructions Start Date End Date Status Dosage Flomax [facility] [address]-86 0.4 MG Orally Once a day May 20, 2015 1 capsule 30 minutes after the same meal each day Aspir-81 [facility] [address]-19 81 MG Orally Once a day 1 tablet Procedures Procedure Coding System Code Date Office Visit, Est Pt., Level 3 CPT-4 02042 May 20, 2015 Vital Signs Date/Time: May 20, 2015 Temperature 97.9 F Weight 168.2 lbs Height 73 in BMI 22.19 Index Blood Pressure Diastolic 96 mmHg Blood Pressure Systolic 170 mmHg Cardiac Monitoring Heart Rate 79 bpm Results Name Result Date Reference Range Unit Abnormality Flag UA LONG DIP (IN HOUSE) Summary Purpose [employer] Submission
--- OUTSIDE RECORDS SUMMARY | 2018-10-16 09:02 | XMS REPORT ---
Author Author RADHIKA CERVANTES [facility] Address [address] [place] [address] Care Team Providers Care Animal Skinner Name Role Phone RADHIKA CERVANTES Unavailable PROBLEMS Type Condition ICD9-CM Code [id number] Code Onset Dates Condition Status SNOMED Code Problem Essential (primary) hypertension I10 Active 33000620 Problem Stye H00.019 Active 8298846 Problem Hyperlipidemia E78.5 Active 37809321 Problem Goiter E04.9 Active 8557598 Problem Transient cerebral ischemia, unspecified type G45.9 Active 894252924 Problem Chronic pain G89.29 Active 06830907 Problem Leg cramps R25.2 Active 015849983 Problem Primary insomnia F51.01 Active 4299397 Problem Insomnia G47.00 Active 845847309 Problem Eye exam, routine Z01.00 Active 397932462 Problem Glaucoma of both eyes, unspecified glaucoma H40.9 Active 30560154 Problem Polyneuropathy G62.9 Active 47066056 Problem Other insomnia G47.09 Active 927587649 Problem Gastroesophageal reflux disease, esophagitis presence not specified K21.9 Active 822811846 Problem Other headache syndrome G44.89 Active 722129528 Problem Personal history of transient ischemic attack (TIA), 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
--- OUTSIDE RECORDS SUMMARY | 2018-10-16 09:02 | XMS REPORT ---
Author Author RADHIKA CERVANTES Organization [facility] Address [address] [place] [address] Care Team Providers Care Shaft Repairer Name Role Phone RADHIKA CERVANTES Unavailable PROBLEMS Type Condition ICD9-CM Code [id number] Code Onset Dates Condition Status SNOMED Code Problem Leg cramps R25.2 Active 336906560 Problem Chronic pain G89.29 Active 03001559 Problem Stye H00.019 Active 7454762 Problem Numbness of left hand R20.0 Active 735263245 Problem Gastro-esophageal reflux disease without esophagitis K21.9 Active 061234643 Problem Primary insomnia F51.01 Active 1654474 Problem Insomnia G47.00 Active 002843370 Problem Goiter E04.9 Active 1183393 Problem Transient cerebral ischemia, unspecified type G45.9 Active 142743597 Problem Eye exam, routine Z01.00 Active 771435552 Problem Other insomnia G47.09 Active 576430531 Problem Polyneuropathy G62.9 Active 04042075 Problem Essential (primary) hypertension I10 Active 46952585 Problem Other headache syndrome G44.89 Active 191185707 Problem Personal history of transient ischemic attack (TIA), 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 Active 150819825 Problem Glaucoma of both eyes, unspecified glaucoma H40.9 Active 17128204 Problem Hyperlipidemia E78.5 Active 33014966 ALLERGIES No Information ENCOUNTERS Encounter Location Date Diagnosis [facility] [id number] [address] Oct, Chronic pain G89.29 [facility] [id number], [place] [address] Oct, Chronic pain G89.29 [facility] [id number], [place] [address] Sep, Chronic pain G89.29 [facility] [id number] [place] [address] 77[address]- 7888 Sep, Polyneuropathy G62.9 ; Chronic pain G89.29 and Gastro- esophageal reflux disease without esophagitis K21.9 [facility] [id number] [place] [address] 04659- 1063 Sep, Chronic pain G89.29 [facility] [address] [address] Jul, [facility] [address] [address] Jul, Chronic pain G89.29 ; Polyneuropathy G62.9 and Numbness of left hand R20.0 [facility] [id number] [place] [address] 72498- 4462 Jul, Chronic pain G89.29 ; Polyneuropathy G62.9 ; Gastro- esophageal reflux disease without esophagitis K21.9 ; Numbness of left hand R20.0 and Primary insomnia F51.01 [facility] [id number] [place] [address] 59585- 2259 Jul, Chronic pain G89.29 [facility] [id number] [place] [address] 25394- 6846 Jun, Chronic pain G89.29 [facility] [id number] [place] [address] 92948- 2499 May, Chronic pain G89.29 [facility] [id number] [place] [address] 86953- 6207 Apr, Chronic pain G89.29 [facility] [id number] [place] [address] 36507- 0000 Apr, Chronic pain G89.29 and Polyneuropathy G62.9 [facility] [id number] [place] [address] 63708- 3104 Mar, Chronic pain G89.29 [facility] [address], [place] [address] 2543 Feb, Chronic pain G89.29 [facility] [id number] [place] [address] 8[address]28 2546 Feb, Chronic pain G89.29 [facility] [id number] [place] [address] 29761 2546 Jan, Goiter E04.9 [facility] [id number] [place] [address] 41857 2546 Jan, Chronic pain G89.29 ; Hyperlipidemia E78.5 ; Essential ( primary) hypertension I10 ; Anuria R34 and Goiter E04.9 [facility] [id number] [place] [address] 31788- 7941 Jan, Chronic pain G89.29 [facility] [id number] [place] [address] 50170- 8206 November, Chronic pain G89.29 [facility] [id number] [place] [address] 22108 2548 November, [facility] [id number] [place] [address] 98566 2541 Oct, Chronic pain G89.29 [facility] [id number] [place] [address] 58870- 4047 Oct, Chronic pain G89.29 and Primary insomnia F51.01 [facility] [address], [place] [address] Sep, Chronic pain G89.29 [facility] [id number] [place] [address] 26670 2546 Sep, [facility] [id number] [place] [address] 50126 2544 Sep, Chronic pain G89.29 and Primary insomnia F51.01 [facility] [id number] [place] [address] 76206- 3614 Sep, [facility] [id number] [place] [address] 03519- 9131 Sep, Transient cerebral ischemia, unspecified type G45.9 ; Acute midline low back pain without sciatica M54.5 and Seborrheic keratosis L82.1 [facility] [address] [address]- [address]64 Sep, Chronic pain G89.29 [facility] [address] [address]- 0446 Aug, Chronic pain G89.29 and Primary insomnia F51.01 [facility] [id number] [place] [address] 20403- 7504 Aug, Chronic pain G89.29 [facility] [address] [address]- 2731 Jul, Chronic pain G89.29 and Primary insomnia F51.01 [facility] [id number] [place] [address] 70664- 4852 Jul, Chronic pain G89.29 [facility] [id number] [place] [address] 84841- 0798 Jun, Chronic pain G89.29 ; Essential (primary) hypertension I10 ; Polyneuropathy G62.9 ; Drug-induced constipation K59.03 and Primary insomnia F51.01 [facility] [id number] [place] [address] 08789- 9258 Jun, Chronic pain G89.29 [facility] [id number] [place] [address] 84999- 6598 Jun, [facility] [id number] [place] [address] 38377- 7802 Jun, Insomnia G47.00 ; Chronic pain G89.29 and Seborrheic keratosis L82.1 [facility] [id number] [place] [address] 73614- 6503 18 Apr, 2016 Chronic pain G89.29 [facility] [id number] [place] [address] 08966- 1990 Mar, Chronic pain G89.29 [facility] [id number] [place] [address] 14217- 5492 Feb, Chronic pain G89.29 [facility] [address] [address]- 0314 Jan, Chronic pain G89.29 [facility] [id number] [place] [address] 24741- 7828 Dec, [facility] [address] [address]77- 0107 Dec, Chronic pain G89.29 [facility] [address] 96327- 2414 13 Dec, 2015 Other chronic pain G89.29 ; Hyperlipidemia E78.5 and Polyneuropathy G62.9 [facility] [id number] [place] [address] 11909- 8566 Dec, [facility] [id number] [place] [address] 78336- 1268 November, Chronic pain G89.29 [facility] [id number] [place] [address] 73296- 2323 November, [facility] [id number] [place] [address] 42050- 1480 November, Chronic pain G89.29 ; Stye H00.019 ; Insomnia G47.00 ; Leg cramps R25.2 and GERD (gastroesophageal reflux disease) K21.9 [facility] [id number] [place] [address] 62564- 2804 Oct, Other chronic pain G89.29 [facility] [id number] [place] [address] 90985- 8105 08 Oct, 2015 Hyperlipidemia E78.5 [facility] [id number] [place] [address] 44346- 3194 31 Sep, 2015 Essential (primary) hypertension I10 [facility] [id number] [place] [address] 74387- 6856 30 Sep, 2015 Other chronic pain G89.29 ; Polyneuropathy G62.9 ; Essential (primary) hypertension I10 and Personal history of transient ischemic attack (TIA), 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 [facility] [id number] [place] [address] 60402- 4389 16 Sep, 2015 [facility] [address] 96184- 1183 16 Sep, 2015 [facility] [id number] [place] [address] 99657- 7592 Aug, [facility] [id number] [place] [address] 39006- 4608 Jul, [facility] [id number] [place] [address] 33285- 9641 Jul, [facility] [id number] [place] [address] 54170- 2221 Jun, Other chronic pain G89.29 and Gastroesophageal reflux disease, esophagitis presence not specified K21.9 [facility] [id number] [place] [address] 33230- 3743 May, Chronic pain syndrome 338.4 and Polyneuropathy G62.9 [facility] [id number] [place] [address] 42831- 8678 11 May, 2015 Enlarged prostate with lower urinary tract symptoms N40.1 ; Other retention of urine R33.8 and Peripheral polyneuropathy G62.9 [facility] [id number] [place] [address] 73199- 6525 14 Apr, 2015 [facility] [id number] [place] [address] 47406 2546 16 Mar, 2015 [facility] [address], [place] [address]- 8236 Mar, Neuropathy 355.9 and Chronic pain 338.29 [facility] [id number] [place] [address] 70050- 2546 Feb, Neuropathy 355.9 and TIA (transient ischemic attack) 435.9 [facility] [id number] [place] [address] 14421- 6596 Dec, Neuropathy 355.9 ; Chronic pain 338.29 ; Restless legs 333.94 ; Seborrheic keratoses 702.19 and GERD (gastroesophageal reflux disease) 530.81 [facility] [id number] [place] [address] 57314- 0993 Dec, [facility] [id number] [place] [address] 73813- 1932 Oct, [facility] [id number] [place] [address] 15055- 0457 Oct, [facility] [address] [place] [address] 14207- 2243 Sep, [facility] [id number] [address] [address] Sep, [facility] [address] [place] [address]- 5079 Sep, [facility] [address] [place] [address]- 2535 Sep, [facility] [address] [place] [address]- 0633 Aug, [facility] [address] [place] [address] 95698- 2276 Aug, [facility] [address] [place] [address]- 4276 Jul, [facility] [id number], [place] [address]- 7256 Jul, [facility] [id number], [place] [address]- 5739 Jul, [facility] [address] [place] [address]- 4054 Jul, [facility] [id number] [place] [address]- 8936 Jul, [facility] [address] [place] [address]- 6214 Jul, [facility] [address] [place] [address]- 9106 Jul, [facility] [address] [place] [address]- 5163 Jul, [facility] [address] [place] [address]- 5650 Jun, [facility] [id number], [place] [address]- 4311 Jun, IMMUNIZATIONS No Known Immunizations SOCIAL HISTORY Never Assessed REASON FOR VISIT Lesion PLAN OF CARE VITAL SIGNS MEDICATIONS Unknown Medications RESULTS No Results PROCEDURES No Known procedures [...]
--- OUTSIDE RECORDS SUMMARY | 2018-10-16 09:02 | XMS REPORT ---
Author RADHIKA Feng Organization [employer] Address Unknown Phone Unavailable Care Team Providers Care Food Counselor Name Role Phone RADHIKA CERVANTES CP Unavailable Allergies No Known Allergies Problems Problem Type Condition Code Onset Dates Condition Status Problem Headache 784.0 Active Problem Unspecified hereditary and idiopathic peripheral neuropathy 356.9 Active Problem Essential hypertension, malignant 401.0 Active Problem Gastroesophageal reflux disease, esophagitis presence [...] Instructions Start Date End Date Status Dosage Morphine Sulfate ER [facility] [address]-25 15 MG Orally every 12 hrs Jun 01, 2015 1 tablet Results No Known Results Summary Purpose [employer] Submission
--- OUTSIDE RECORDS SUMMARY | 2018-10-16 09:02 | XMS REPORT ---
Author RADHIKA Feng Organization [employer] Address Unknown Phone Unavailable Care Team Providers Care Webmethods Architect Name Role Phone RADHIKA CERVANTES CP Unavailable [...] Start Date End Date Status Dosage Fentanyl [facility] [address]-75 25 MCG/HR Transdermal Change every 72 hours October 07, 2015 1 patch to skin Results No Known Results Summary Purpose [employer] Submission
--- OUTSIDE RECORDS SUMMARY | 2018-10-16 09:02 | XMS REPORT ---
Author Author RADHIKA CERVANTES [facility] [employer] Address Unknown Phone Unavailable Care Team Providers Care Showroom Consultant Name Role Phone RADHIKA CERVANTES CP Unavailable Allergies No Known Allergies Problems Problem Type Condition Code Onset Dates Condition Status Problem Neuropathy 355.9 Active Problem 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], 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 Active Problem TIA (transient ischemic attack) 435.9 Active Problem Headache 784.0 Active Problem Unspecified hereditary and idiopathic peripheral neuropathy 356.9 Active Problem Essential hypertension, malignant 401.0 Active Medications No Known Medications Results No Known Results Summary Purpose [employer] Submission
--- OUTSIDE RECORDS SUMMARY | 2018-10-16 09:02 | XMS REPORT ---
Author Author RADHIKA CERVANTES [facility] Address [address] [place] [address] Care Team Providers Care Aeronautical Engineering Professor Name Role Phone RADHIKA CERVANTES Unavailable PROBLEMS Type Condition ICD9-CM Code JBS41-YP Code Onset Dates Condition Status SNOMED Code Problem Essential (primary) hypertension I10 Active 35237038 Problem Stye H00.019 Active 6627411 Problem Hyperlipidemia E78.5 Active 39920612 Problem Goiter E04.9 Active 5811755 Problem Transient cerebral ischemia, unspecified type G45.9 Active 654999652 Problem Chronic pain G89.29 Active 17014169 Problem Leg cramps R25.2 Active 582429485 Problem Primary insomnia F51.01 Active 8223808 Problem Insomnia G47.00 Active 143455387 Problem Eye exam, routine Z01.00 Active 216825677 Problem Glaucoma of both eyes, unspecified glaucoma H40.9 Active 33619324 Problem Polyneuropathy G62.9 Active 70209171 Problem Other insomnia G47.09 Active 027076191 Problem Gastroesophageal reflux disease, esophagitis presence not specified K21.9 Active 478331614 Problem Other headache syndrome G44.89 Active 661690938 Problem Personal history of transient ischemic attack (TIA), 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
--- OUTSIDE RECORDS SUMMARY | 2018-10-16 09:03 | XMS REPORT ---
Author Author RADHIKA CERVANTES [facility] Address [address] [place] [address] Care Team Providers Care Grants And Contracts Assistant Name Role Phone RADHIKA CERVANTES Unavailable PROBLEMS Type Condition ICD9-CM Code QPG98-RO Code Onset Dates Condition Status SNOMED Code Problem Leg cramps R25.2 Active 268401318 Problem Chronic pain G89.29 Active 83926114 Problem Stye H00.019 Active 7374269 Problem Numbness of left hand R20.0 Active 743569956 Problem Gastro-esophageal reflux disease without esophagitis K21.9 Active 285092275 Problem Primary insomnia F51.01 Active 8281814 Problem Insomnia G47.00 Active 486096333 Problem Goiter E04.9 Active 9553513 Problem Transient cerebral ischemia, unspecified type G45.9 Active 290134359 Problem Eye exam, routine Z01.00 Active 415107859 Problem Other insomnia G47.09 Active 982925798 Problem Polyneuropathy G62.9 Active 30918930 Problem Essential (primary) hypertension I10 Active 40083747 Problem Other headache syndrome G44.89 Active 132850447 Problem Personal history of transient ischemic attack (TIA), 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 Active 392171876 Problem Glaucoma of both eyes, unspecified glaucoma H40.9 Active 91955200 Problem Hyperlipidemia E78.5 Active 75896656 ALLERGIES No Information ENCOUNTERS Encounter Location Date Diagnosis [facility] [address] [facility] [id number] [address] Jan, [facility] [id number] [address] Dec, Chronic pain G89.29 [facility] [id number] [address] November, Chronic pain G89.29 [facility] [address] [place] [address] 97640- 4682 Oct, Chronic pain G89.29 [facility] [id number] [place] [address] 16251- 9107 Oct, Chronic pain G89.29 [facility] [id number] [place] [address] 70127- 4519 Sep, Chronic pain G89.29 [facility] [id number] [place] [address] 12300- 7144 Sep, Polyneuropathy G62.9 ; Chronic pain G89.29 and Gastro- esophageal reflux disease without esophagitis K21.9 [facility] [id number] [place] [address] 16508- 8088 Sep, Chronic pain G89.29 [facility] [id number] [place] [address] 51557- 8860 Jul, [facility] [id number] [place] [address] 21370- 1383 Jul, Chronic pain G89.29 ; Polyneuropathy G62.9 and Numbness of left hand R20.0 [facility] [id number] [place] [address] 65649- 9363 Jul, Chronic pain G89.29 ; Polyneuropathy G62.9 ; Gastro- esophageal reflux disease without esophagitis K21.9 ; Numbness of left hand R20.0 and Primary insomnia F51.01 [facility] [id number] [place] [address] 88743- 4783 Jul, Chronic pain G89.29 [facility] [id number] [place] [address] 30298- 6597 Jun, Chronic pain G89.29 [facility] [id number] [place] [address] 97701- 7543 May, Chronic pain G89.29 [facility] [id number] [place] [address] 24063- 5643 Apr, Chronic pain G89.29 [facility] [id number] [place] [address] 52712- 5723 Apr, Chronic pain G89.29 and Polyneuropathy G62.9 [facility] [id number] [place] [address] 20533- 8159 Mar, Chronic pain G89.29 [facility] [id number] [place] [address] 37672- 7281 Feb, Chronic pain G89.29 [facility] [address] [address]- 0233 Feb, Chronic pain G89.29 [facility] [address] [address]- 7572 Jan, Goiter E04.9 [facility] [address] 27875- 1689 Jan, Chronic pain G89.29 ; Hyperlipidemia E78.5 ; Essential ( primary) hypertension I10 ; Anuria R34 and Goiter E04.9 [facility] [id number] [place] [address] 80659- 1640 Jan, Chronic pain G89.29 [facility] [id number] [place] [address] 87647- 0577 November, Chronic pain G89.29 [facility] [id number] [place] [address] 65143- 5778 November, [facility] [id number] [place] [address] 32606- 6154 Oct, Chronic pain G89.29 [facility] [id number] [place] [address] 49288- 2615 Oct, Chronic pain G89.29 and Primary insomnia F51.01 [facility] [id number] [place] [address] 47300- 9907 Sep, Chronic pain G89.29 [facility] [id number] [place] [address] 19949- 2926 Sep, [facility] [id number] [place] [address] 27067- 2681 Sep, Chronic pain G89.29 and Primary insomnia F51.01 [facility] [id number] [place] [address] 90934- 4742 Sep, [facility] [id number] [place] [address] 26759- 0759 Sep, Transient cerebral ischemia, unspecified type G45.9 ; Acute midline low back pain without sciatica M54.5 and Seborrheic keratosis L82.1 [facility] [id number] [place] [address] 02341- 5770 Sep, Chronic pain G89.29 [facility] [id number] [place] [address] 09839- 0181 Aug, Chronic pain G89.29 and Primary insomnia F51.01 [facility] [id number] [place] [address] 27040- 1196 Aug, Chronic pain G89.29 [facility] [id number] [place] [address] 93105- 3770 Jul, Chronic pain G89.29 and Primary insomnia F51.01 [facility] [id number] [place] [address] 38055- 9948 Jul, Chronic pain G89.29 [facility] [id number] [place] [address] 30970- 5896 Jun, Chronic pain G89.29 ; Essential (primary) hypertension I10 ; Polyneuropathy G62.9 ; Drug-induced constipation K59.03 and Primary insomnia F51.01 [facility] [id number] [place] [address] 51188- 5650 Jun, Chronic pain G89.29 [facility] [id number] [place] [address] 48239- 8256 Jun, [facility] [id number] [place] [address] 30826- 7716 Jun, Insomnia G47.00 ; Chronic pain G89.29 and Seborrheic keratosis L82.1 [facility] [id number] [place] [address] 84767- 5086 Apr, Chronic pain G89.29 [facility] [id number] [place] [address] 10387- 1219 Mar, Chronic pain G89.29 [facility] [id number] [place] [address] 86677- 1545 Feb, Chronic pain G89.29 [facility] [id number] [place] [address] 74869- 8598 Jan, Chronic pain G89.29 [facility] [id number] [place] [address] 73389- 9827 Dec, [facility] [id number] [place] [address] 20788- 5954 Dec, Chronic pain G89.29 [facility] [id number] [place] [address] 26528- 0126 Dec, Other chronic pain G89.29 ; Hyperlipidemia E78.5 and Polyneuropathy G62.9 [facility] [id number] [place] [address] 34403- 7449 Dec, [facility] [id number] [place] [address] 16027- 6845 November, Chronic pain G89.29 [facility] [id number] [place] [address] 56512- 3510 November, [facility] [id number] [place] [address] 68022- 9695 November, Chronic pain G89.29 ; Stye H00.019 ; Insomnia G47.00 ; Leg cramps R25.2 and GERD (gastroesophageal reflux disease) K21.9 [facility] [id number] [place] [address] 82769- 2374 Oct, Other chronic pain G89.29 [facility] [address] 00373- 8467 Oct, Hyperlipidemia E78.5 [facility] [address] 97168- 5737 Sep, Essential (primary) hypertension I10 [facility] [address] 44921- 7768 30 Sep, 2015 Other chronic pain G89.29 ; Polyneuropathy G62.9 ; Essential (primary) hypertension I10 and Personal history of transient ischemic attack (TIA), 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9 [facility] [id number] [place] [address] 42404- 9324 May, Chronic pain syndrome 338.4 and Polyneuropathy G62.9 [facility] [id number] [place] [address] 06916- 9764 11 May, 2015 Enlarged prostate with lower urinary tract symptoms N40.1 ; Other retention of urine R33.8 and Peripheral polyneuropathy G62.9 [facility] [id number] [place] [address] 88643- 1879 14 Apr, 2015 [facility] [id number] [place] [address] 262977- 7894 16 Mar, 2015 [facility] [id number] [place] [address] 096211- 3253 Mar, Neuropathy 355.9 and Chronic pain 338.29 [facility] [id number] [place] [address] 15512- 0242 Feb, Neuropathy 355.9 and TIA (transient ischemic attack) 435.9 [facility] [id number] [place] [address] 89194- 5904 Dec, Neuropathy 355.9 ; Chronic pain 338.29 ; Restless legs 333.94 ; Seborrheic keratoses 702.19 and GERD (gastroesophageal reflux disease) 530.81 [facility] [id number] [place] [address] 28831- 8499 Dec, [facility] [id number] [place] [address] 45636- 1853 14 Oct, 2014 [facility] [id number] [place] [address] 95118- 2806 Oct, [facility] [id number] [place] [address] 17405- 7815 Sep, [facility] [address] 467198- 0220 Sep, [facility] [id number] [place] [address] [phone]- 7840 Sep, [facility] [id number] [place] [address] 342300- 2196 Sep, [facility] [id number] [address]- 0639 Aug, [facility] [address] [address]- 2793 Aug, [facility] [address] [address]- 9420 Jul, [facility] [address] [address]- 3297 Jul, [facility] [address] [address]- 6436 Jul, [facility] [address] [place] [address] 686958- 0766 Jul, [facility] [address] [address]- 7494 Jul, [facility] [address] [address]- 8618 Jul, [facility] [address] [address]- 2085 Jul, [facility] [address] [address]- 7574 Jul, [facility] [id number] Jun, [facility] [id number] [address]- 9724 Jun, IMMUNIZATIONS No Known Immunizations SOCIAL HISTORY Never Assessed REASON FOR VISIT Controlled Med update PLAN OF CARE VITAL SIGNS MEDICATIONS Unknown [...]
--- OUTSIDE RECORDS SUMMARY | 2018-10-16 09:03 | XMS REPORT ---
Author RADHIKA Feng Organization [employer] Address Unknown Phone Unavailable Care Team Providers Care Dental Appliance Mechanic Name Role Phone RADHIKA CERVANTES CP Unavailable [...] Start Date End Date Status Dosage Fentanyl [facility] [id number] 25 MCG/HR Transdermal Change every 72 hours October 07, 2015 1 patch to skin Results No Known Results Summary Purpose [employer] Submission
--- OUTSIDE RECORDS SUMMARY | 2018-10-16 09:03 | XMS REPORT ---
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 Active 520424356 Problem Gastroesophageal reflux disease, esophagitis presence not specified K21.9 Active 477274950 Problem Chronic pain G89.29 Active 04468002 Problem Stye H00.019 Active 4036107 Problem Hyperlipidemia E78.5 Active 17617452 Problem Essential (primary) hypertension I10 Active 45211910 Problem Insomnia G47.00 Active 350404023 Problem Leg cramps R25.2 Active 240814421 Problem Eye exam, routine Z01.00 Active 697845721 Problem Headache 784.0 Active 63954260 Problem Glaucoma of both eyes, unspecified glaucoma H40.9 Active 09760381 Problem 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], 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 Active 281473843 Problem Neuropathy 355.9 Active 969134433 Problem Essential hypertension, malignant 401.0 Active 03906925 Problem TIA (transient ischemic attack) 435.9 Active 926577500 Problem Unspecified hereditary and idiopathic peripheral neuropathy 356.9 Active 805849089 Problem Polyneuropathy G62.9 Active 59786572 ALLERGIES Unknown Allergies SOCIAL HISTORY No smoking Hx information available PLAN OF CARE VITAL SIGNS MEDICATIONS Medication Instructions Dosage Frequency Start Date End Date Duration Status Fentanyl 25 MCG/HR Transdermal Change every 72 hours 1 patch to skin Jun, 28 days Active RESULTS No Results PROCEDURES No Known procedures IMMUNIZATIONS No Known Immunizations
--- OUTSIDE RECORDS SUMMARY | 2018-10-16 09:03 | XMS REPORT ---
Author Author RADHIKA CERVANTES [facility] Address [address] [place] [address] Care Team Providers Care Stone Circular Sawyer Name Role Phone RADHIKA CERVANTES Unavailable PROBLEMS Type Condition ICD9-CM Code JGC46-GN Code Onset Dates Condition Status SNOMED Code Problem Essential (primary) hypertension I10 Active 96991929 Problem Leg cramps R25.2 Active 977341099 Problem Hyperlipidemia E78.5 Active 92709968 Problem Goiter E04.9 Active 2340748 Problem Transient cerebral ischemia, unspecified type G45.9 Active 067823452 Problem Stye H00.019 Active 3020993 Problem Insomnia G47.00 Active 197672029 Problem Primary insomnia F51.01 Active 0735273 Problem Chronic pain G89.29 Active 37251256 Problem Other insomnia G47.09 Active 711993351 Problem Eye exam, routine Z01.00 Active 685907580 Problem Polyneuropathy G62.9 Active 52169838 Problem Other headache syndrome G44.89 Active 165845368 Problem Gastroesophageal reflux disease, esophagitis presence not specified K21.9 Active 113451579 Problem Glaucoma of both eyes, unspecified glaucoma H40.9 Active 52930977 Problem Personal history of transient ischemic attack (TIA), 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 Active 156564008 ALLERGIES Substance Reaction Event Type Date Status Lyrica Leg swelling Drug Allergy Jun, Active SOCIAL HISTORY No smoking Hx information available PLAN OF CARE Activity Details Follow Up 3 Months Reason:pain mgmt VITAL SIGNS Height 73 in 2016-07-07 Weight 170.8 lbs 2016-07-07 Temperature 98.2 degrees Fahrenheit 2016-07-07 Heart Rate 96 bpm 2016-07-07 Respiratory Rate 18 2016-07-07 BMI 22.53 kg/m2 2016-07-07 Blood pressure systolic 174 mmHg 2016-07-07 Blood pressure diastolic 96 mmHg 2016-07-07 MEDICATIONS Medication Instructions Dosage Frequency Start Date End Date Duration Status Percocet 10-325 MG Orally 2 times a day 1 tablet as needed 12h Jun, Jul, 28 days Active Aspir-81 81 MG Orally Once a day 1 tablet 24h Active Lipitor 20 mg Orally Once a day 1 tablet 24h Oct, 90 days Active Omeprazole 20 mg Orally Once a day 1 capsules 24h Jun, Active Tizanidine HCl 4 MG Orally Once a day at bedtime 1 tablet Active MiraLax - Orally Once a day 17 grm 24h Jun, Oct, 30 days Active Ambien 10 mg Orally Once a day 1 tablet at bedtime as needed 24h Jun, 28 days Active Fentanyl 25 MCG/HR Transdermal Change every 72 hours 1 patch to skin Jun, 28 days Active RESULTS No Results PROCEDURES Procedure Date Ordered Related Diagnosis Body Site Office Visit, Est Pt., Level 3 Jul 07, 2016 IMMUNIZATIONS No Known Immunizations
--- OUTSIDE RECORDS SUMMARY | 2018-10-16 09:03 | XMS REPORT ---
Author Author RADHIKA CERVANTES [facility] Address [address] [place] [address] Care Team Providers Care Cracker Dough Mixer Name Role Phone RADHIKA CERVANTES Unavailable PROBLEMS Type Condition ICD9-CM Code FDM80-YJ Code Onset Dates Condition Status SNOMED Code Problem Essential (primary) hypertension I10 Active 69189517 Problem Stye H00.019 Active 8150986 Problem Hyperlipidemia E78.5 Active 77822796 Problem Goiter E04.9 Active 7625980 Problem Transient cerebral ischemia, unspecified type G45.9 Active 293371527 Problem Chronic pain G89.29 Active 72975216 Problem Leg cramps R25.2 Active 598258128 Problem Primary insomnia F51.01 Active 5950707 Problem Insomnia G47.00 Active 791191468 Problem Eye exam, routine Z01.00 Active 129580672 Problem Glaucoma of both eyes, unspecified glaucoma H40.9 Active 05591032 Problem Polyneuropathy G62.9 Active 11198947 Problem Other insomnia G47.09 Active 521963389 Problem Gastroesophageal reflux disease, esophagitis presence not specified K21.9 Active 244125095 Problem Other headache syndrome G44.89 Active 362971857 Problem Personal history of transient ischemic attack (TIA), 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
--- OUTSIDE RECORDS SUMMARY | 2018-10-16 09:03 | XMS REPORT ---
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 Active Problem Hyperlipidemia E78.5 Active Problem Chronic pain syndrome 338.4 Active Problem Polyneuropathy G62.9 Active Problem Other chronic pain G89.29 Active Problem Gastroesophageal reflux disease, esophagitis presence not specified K21.9 Active Assessment Other chronic pain G89.29 Active Problem Headache 784.0 Active Problem Essential hypertension, malignant 401.0 Active Problem Unspecified hereditary and idiopathic peripheral neuropathy 356.9 Active Medications Medication Code System Code Instructions Start Date End Date Status Dosage Fentanyl [facility] [address]-30 12 MCG/HR Transdermal Change every 72 hours October 07, 2015 1 patch to skin Results No Known Results Summary Purpose [employer] Submission
--- OUTSIDE RECORDS SUMMARY | 2018-10-16 09:04 | XMS REPORT ---
Author Author RADHIAK CERVANTES [facility] Address [address] [place] [address] Care Team Providers Care Project Management It Specialist Name Role Phone RADHIKA CERVANTES Unavailable PROBLEMS Type Condition ICD9-CM Code ACE97-OH Code Onset Dates Condition Status SNOMED Code Problem Essential (primary) hypertension I10 Active 01688079 Problem Stye H00.019 Active 7112768 Problem Hyperlipidemia E78.5 Active 42429037 Problem Goiter E04.9 Active 5950889 Problem Transient cerebral ischemia, unspecified type G45.9 Active 094298748 Problem Chronic pain G89.29 Active 39386416 Problem Leg cramps R25.2 Active 193582397 Problem Primary insomnia F51.01 Active 5018481 Problem Insomnia G47.00 Active 094477090 Problem Eye exam, routine Z01.00 Active 286280454 Problem Glaucoma of both eyes, unspecified glaucoma H40.9 Active 09747911 Problem Polyneuropathy G62.9 Active 39245258 Problem Other insomnia G47.09 Active 512512990 Problem Gastroesophageal reflux disease, esophagitis presence not specified K21.9 Active 988383066 Problem Other headache syndrome G44.89 Active 996743710 Problem Personal history of transient ischemic attack (TIA), 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
--- OUTSIDE RECORDS SUMMARY | 2018-10-16 09:04 | XMS REPORT ---
Author RADHIKA Feng Organization [employer] Address Unknown Phone Unavailable Care Team Providers Care Forest And Conservation Worker Name Role Phone RADHIKA CERVANTES CP Unavailable [...] Instructions Start Date End Date Status Dosage Embeda [facility] [address]-36 20-0.8 MG Orally 2 times a day Jul 01, 2015 1 capsule Amitriptyline HCl [facility] [address]-74 25 MG Orally Once a day at bedtime Jun 01, 2015 1 tablet Omeprazole [facility] [address]-62 20 MG Orally Once a day Jul 01, 2015 1 capsules Results No Known Results Summary Purpose [employer] Submission
--- OUTSIDE RECORDS SUMMARY | 2018-10-16 09:04 | XMS REPORT ---
Author Author RADHIKA CERVANTES Organization [facility] Address [address] [place] [address] Care Team Providers Care Commissary Agent Name Role Phone RADHIKA CERVANTES Unavailable PROBLEMS Type Condition ICD9-CM Code SSO98-TZ Code Onset Dates Condition Status SNOMED Code Problem Leg cramps R25.2 Active 798548713 Problem Chronic pain G89.29 Active 07369337 Problem Stye H00.019 Active 5588660 Problem Numbness of left hand R20.0 Active 146932181 Problem Gastro-esophageal reflux disease without esophagitis K21.9 Active 552233076 Problem Primary insomnia F51.01 Active 0533657 Problem Insomnia G47.00 Active 800401708 Problem Goiter E04.9 Active 7299682 Problem Transient cerebral ischemia, unspecified type G45.9 Active 612977892 Problem Eye exam, routine Z01.00 Active 137675405 Problem Other insomnia G47.09 Active 180344254 Problem Polyneuropathy G62.9 Active 36908619 Problem Essential (primary) hypertension I10 Active 40622281 Problem Other headache syndrome G44.89 Active 074429078 Problem Personal history of transient ischemic attack (TIA), 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 Active 056334066 Problem Glaucoma of both eyes, unspecified glaucoma H40.9 Active 81600611 Problem Hyperlipidemia E78.5 Active 30985214 ALLERGIES No Information ENCOUNTERS Encounter Location Date Diagnosis [facility] [id number], [place] [address] Oct, Chronic pain G89.29 [facility] [id number], [place] [address] Sep, Chronic pain G89.29 [facility] [address] [facility] [id number] [address] Sep, Polyneuropathy G62.9 ; Chronic pain G89.29 and Gastro- esophageal reflux disease without esophagitis K21.9 [facility] [id number] [place] [address] 09654- 4587 Sep, Chronic pain G89.29 [facility] [id number] [place] [address] 60306- 7018 Jul, [facility] [address] [address]- [address] Jul, Chronic pain G89.29 ; Polyneuropathy G62.9 and Numbness of left hand R20.0 [place] [address] [address] [address] Jul, Chronic pain G89.29 ; Polyneuropathy G62.9 ; Gastro- esophageal reflux disease without esophagitis K21.9 ; Numbness of left hand R20.0 and Primary insomnia F51.01 [place] [address] [address] Jul, Chronic pain G89.29 [place] [address] 80873- 1678 Jun, Chronic pain G89.29 [place] [id number] [place] [address] 48165- 0581 May, Chronic pain G89.29 [place] [address] [address]35- 4689 Apr, Chronic pain G89.29 [place] [id number] [place] [address] 39739- 8072 Apr, Chronic pain G89.29 and Polyneuropathy G62.9 [facility] [id number] [place] [id number] Mar, Chronic pain G89.29 [place] [address] [address]- [address]80 Feb, Chronic pain G89.29 [facility] [id number] [place] [address] 96554- 5559 Feb, Chronic pain G89.29 [facility] [id number] [place] [address]58 2546 Jan, Goiter E04.9 [facility] [id number] [place] [address] 93516- 7264 Jan, Chronic pain G89.29 ; Hyperlipidemia E78.5 ; Essential ( primary) hypertension I10 ; Anuria R34 and Goiter E04.9 [facility] [id number] [place] [address] 86852- 4268 Jan, Chronic pain G89.29 [facility] [id number] [place] [address] 47731- 6141 November, Chronic pain G89.29 [facility] [id number] [place] [address] 64787- 0486 November, [facility] [id number] [place] [address] 50792- 1420 Oct, Chronic pain G89.29 [facility] [id number] [place] [address] 46021- 3606 Oct, Chronic pain G89.29 and Primary insomnia F51.01 [facility] [id number] [place] [address] 35453- 9526 Sep, Chronic pain G89.29 [facility] [id number] [place] [address] 00268- 3082 Sep, [facility] [id number] [place] [address] 39251- 2668 Sep, Chronic pain G89.29 and Primary insomnia F51.01 [facility] [id number] [place] [address] 28801- 8515 Sep, [facility] [id number] [place] [address] 57388- 5730 Sep, Transient cerebral ischemia, unspecified type G45.9 ; Acute midline low back pain without sciatica M54.5 and Seborrheic keratosis L82.1 [place] [id number] [place] [address] 66777- 0537 Sep, Chronic pain G89.29 [place] [id number] [place] [address] 53819- 6187 Aug, Chronic pain G89.29 and Primary insomnia F51.01 [place] [address] [address]- 8754 Aug, Chronic pain G89.29 [place] [id number] [place] [address] 09184- 9061 Jul, Chronic pain G89.29 and Primary insomnia F51.01 [place] [address] 09833- 1489 Jul, Chronic pain G89.29 [place] [id number] [place] [address] 42196- 3632 Jun, Chronic pain G89.29 ; Essential (primary) hypertension I10 ; Polyneuropathy G62.9 ; Drug-induced constipation K59.03 and Primary insomnia F51.01 [place] [id number] [place] [address] 44598- 9558 Jun, Chronic pain G89.29 [place] [id number] [place] [address] 59895- 8066 Jun, [place] [id number] [place] [address] 64608- 9643 Jun, Insomnia G47.00 ; Chronic pain G89.29 and Seborrheic keratosis L82.1 [place] [id number] [place] [address] 15412- 6865 Apr, Chronic pain G89.29 [place] [id number] [place] [address] 55265- 3761 Mar, Chronic pain G89.29 [facility] [id number] [place] [address] 49228- 5343 Feb, Chronic pain G89.29 [facility] [id number] [place] [address] 58050- 2401 Jan, Chronic pain G89.29 [facility] [address] 80307- 8938 Dec, [facility] [id number] [place] [address] 75544- 3485 Dec, Chronic pain G89.29 [facility] [id number] [place] [address] 17659- 7846 Dec, Other chronic pain G89.29 ; Hyperlipidemia E78.5 and Polyneuropathy G62.9 [facility] [id number] [place] [address] 31288- 7237 Dec, [facility] [id number] [place] [address] 13483- 9718 November, Chronic pain G89.29 [facility] [id number] [place] [address] 08506- 4270 November, [facility] [id number] [place] [address] 19875- 6749 November, Chronic pain G89.29 ; Stye H00.019 ; Insomnia G47.00 ; Leg cramps R25.2 and GERD (gastroesophageal reflux disease) K21.9 [facility] [id number] [place] [address] 15215- 3827 Oct, Other chronic pain G89.29 [facility] [id number] [place] [address] 73692- 9937 Oct, Hyperlipidemia E78.5 [facility] [id number] [place] [address] 22971- 3613 31 Sep, 2015 Essential (primary) hypertension I10 [facility] [id number] [place] [address] 61654- 3323 30 Sep, 2015 Other chronic pain G89.29 ; Polyneuropathy G62.9 ; Essential (primary) hypertension I10 and Personal history of transient ischemic attack (TIA), 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 [place] [id number] [place] [address] 28684- 8657 16 Sep, 2015 [place] [id number] [place] [address] 44451- 0136 Sep, [place] [address] 89699- 8639 Aug, [place] [address] 65769- 0030 Jul, [place] [address] 46969- 4782 Jul, [place] [id number] [place] [address] 43181- 4804 Jun, Other chronic pain G89.29 and Gastroesophageal reflux disease, esophagitis presence not specified K21.9 [place] [id number] [place] [address] 25487- 4768 23 May, 2015 Chronic pain syndrome 338.4 and Polyneuropathy G62.9 [place] [id number] [place] [address] 60399- 9376 May, Enlarged prostate with lower urinary tract symptoms N40.1 ; Other retention of urine R33.8 and Peripheral polyneuropathy G62.9 [place] [id number] [place] [address] 65143- 7287 14 Apr, 2015 [place] [id number] [place] [address] 92085- 2619 16 Mar, [id number] [place] [address] 37050- 0662 Mar, Neuropathy 355.9 and Chronic pain 338.29 [facility] [address] [address] Feb, Neuropathy 355.9 and TIA (transient ischemic attack) 435.9 [facility] [id number] [place] [address] 89983- 5966 16 Dec, 2014 Neuropathy 355.9 ; Chronic pain 338.29 ; Restless legs 333.94 ; Seborrheic keratoses 702.19 and GERD (gastroesophageal reflux disease) 530.81 [facility] [id number] [place] [address] 26663- 9041 Dec, [facility] [id number] [place] [address] 05347- 3160 Oct, [facility] [id number] [place] [address] 69362- 0607 Oct, [facility] [id number] [place] [address] 51678- 9673 Sep, [facility] [id number] [place] [address] 016197- 7904 Sep, [facility] [id number] [place] [address] 492386- 2146 Sep, [facility] [address] [address] Sep, [facility] [id number] [place] [address] 45214- 3046 Aug, [facility] [id number] [address]- 1026 Aug, [facility] [id number] [place] [address] 45048- 9146 Jul, [facility] [id number] [address]- 0426 Jul, [facility] [address] [place] [address]- 9909 Jul, [facility] [address], [place] [address]- 4715 Jul, [facility] [address], [place] [address]- 1874 Jul, [facility] [address], [place] [address]- 0071 Jul, [facility] [address], [place] [address]- 1150 Jul, [facility] [id number] [place] [address] 263654- 4110 Jul, [facility] [address], [place] [address]- 4460 Jun, [facility] [address], [place] [address]- 5235 Jun, IMMUNIZATIONS No Known Immunizations SOCIAL HISTORY Never Assessed REASON FOR VISIT Controlled Med Refill 03/08/2017 PLAN OF CARE VITAL SIGNS MEDICATIONS Medication Instructions Dosage Frequency Start Date End Date Duration Status Percocet 10-325 MG Orally 2 times a day 1 tablet as needed 12h Feb, 28 days Active Fentanyl 25 MCG/HR Transdermal [...]
--- OUTSIDE RECORDS SUMMARY | 2018-10-16 09:04 | XMS REPORT ---
Author Author RADHIKA CERVANTES [facility] Address [address] [place] [address] Care Team Providers Care Record Center Specialist Name Role Phone RADHIKA CERVANTES Unavailable PROBLEMS Type Condition ICD9-CM Code XKR50-YY Code Onset Dates Condition Status SNOMED Code Problem Leg cramps R25.2 Active 526779434 Problem Chronic pain G89.29 Active 79330966 Problem Stye H00.019 Active 8611431 Problem Numbness of left hand R20.0 Active 282564258 Problem Gastro-esophageal reflux disease without esophagitis K21.9 Active 604336376 Problem Primary insomnia F51.01 Active 7921712 Problem Insomnia G47.00 Active 639541308 Problem Goiter E04.9 Active 6708953 Problem Transient cerebral ischemia, unspecified type G45.9 Active 493215235 Problem Eye exam, routine Z01.00 Active 469461917 Problem Other insomnia G47.09 Active 656793575 Problem Polyneuropathy G62.9 Active 85846730 Problem Essential (primary) hypertension I10 Active 50674120 Problem Other headache syndrome G44.89 Active 721495450 Problem Personal history of transient ischemic attack (TIA), 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 Active 451729755 Problem Glaucoma of both eyes, unspecified glaucoma H40.9 Active 73766566 Problem Hyperlipidemia E78.5 Active 97617258 ALLERGIES No Information ENCOUNTERS Encounter Location Date Diagnosis [facility] [address] [facility] [id number] [address] Jan, [facility] [id number] [address] Dec, Chronic pain G89.29 [facility] [address] [id number] [address] November, Chronic pain G89.29 [facility] [id number] [place] [address] 02096- 6221 Oct, Chronic pain G89.29 [facility] [id number] [place] [address] 89511- 2193 Oct, Chronic pain G89.29 [facility] [id number] [place] [address] 81637- 6650 Sep, Chronic pain G89.29 [facility] [id number] [place] [address] 65024- 3574 Sep, Polyneuropathy G62.9 ; Chronic pain G89.29 and Gastro- esophageal reflux disease without esophagitis K21.9 [place] [facility] [id number] [place] [address] 00716- 6412 Sep, Chronic pain G89.29 [facility] [id number] [place] [address] 98628- 0047 Jul, [facility] [id number] [place] [address] 87990- 3808 Jul, Chronic pain G89.29 ; Polyneuropathy G62.9 and Numbness of left hand R20.0 [place] [id number] [place] [address] 32470- 4569 Jul, Chronic pain G89.29 ; Polyneuropathy G62.9 ; Gastro- esophageal reflux disease without esophagitis K21.9 ; Numbness of left hand R20.0 and Primary insomnia F51.01 [facility] [id number] [place] [address] 58686- 9361 Jul, Chronic pain G89.29 [facility] [id number] [place] [address] 82783- 5029 Jun, Chronic pain G89.29 [facility] [id number] [place] [address] 21891- 4092 May, Chronic pain G89.29 [facility] [id number] [place] [address] 57740- 2304 Apr, Chronic pain G89.29 [facility] [id number] [place] [address] 43511- 5845 Apr, Chronic pain G89.29 and Polyneuropathy G62.9 [facility] [id number] [place] [address] 14576- 9366 Mar, Chronic pain G89.29 [facility] [id number] [place] [address] 90753- 0266 Feb, Chronic pain G89.29 [facility] [address] [address]- 8993 Feb, Chronic pain G89.29 [facility] [address] [address]- 1724 Jan, Goiter E04.9 [facility] [address] 0[address]46- 6943 Jan, Chronic pain G89.29 ; Hyperlipidemia E78.5 ; Essential ( primary) hypertension I10 ; Anuria R34 and Goiter E04.9 [facility] [id number] [place] [address] 50576- 3010 Jan, Chronic pain G89.29 [facility] [id number] [place] [address] 17359- 9963 November, Chronic pain G89.29 [facility] [id number] [place] [address] 31068- 8629 November, [facility] [id number] [place] [address] 82961- 4841 Oct, Chronic pain G89.29 [facility] [id number] [place] [address] 81705- 4864 Oct, Chronic pain G89.29 and Primary insomnia F51.01 [facility] [id number] [place] [address] 34126- 8508 Sep, Chronic pain G89.29 [facility] [id number] [place] [address] 69275- 2091 Sep, [facility] [id number] [place] [address] 34531- 2971 Sep, Chronic pain G89.29 and Primary insomnia F51.01 [facility] [id number] [place] [address] 48314- 3733 Sep, [facility] [id number] [place] [address] 90480- 7633 Sep, Transient cerebral ischemia, unspecified type G45.9 ; Acute midline low back pain without sciatica M54.5 and Seborrheic keratosis L82.1 [facility] [id number] [place] [address] 95806- 2558 Sep, Chronic pain G89.29 [facility] [id number] [place] [address] 14469- 7990 Aug, Chronic pain G89.29 and Primary insomnia F51.01 [facility] [id number] [place] [address] 62409- 6931 Aug, Chronic pain G89.29 [facility] [id number] [place] [address] 19131- 2456 Jul, Chronic pain G89.29 and Primary insomnia F51.01 [facility] [id number] [place] [address] 83300- 1439 Jul, Chronic pain G89.29 [facility] [id number] [place] [address] 23353- 9197 Jun, Chronic pain G89.29 ; Essential (primary) hypertension I10 ; Polyneuropathy G62.9 ; Drug-induced constipation K59.03 and Primary insomnia F51.01 [facility] [id number] [place] [address] 35916- 9979 Jun, Chronic pain G89.29 [facility] [id number] [place] [address] 65804- 4306 Jun, [facility] [id number] [place] [address] 62764- 0576 Jun, Insomnia G47.00 ; Chronic pain G89.29 and Seborrheic keratosis L82.1 [facility] [id number] [place] [address] 19794- 2286 Apr, Chronic pain G89.29 [facility] [id number] [place] [address] 11695- 8608 Mar, Chronic pain G89.29 [facility] [id number] [place] [address] 84208- 2056 Feb, Chronic pain G89.29 [facility] [id number] [place] [address] 16117- 5301 Jan, Chronic pain G89.29 [facility] [id number] [place] [address] 56685- 4077 Dec, [facility] [id number] [place] [address] 55740- 7568 Dec, Chronic pain G89.29 [facility] [id number] [place] [address] 02068- 8988 Dec, Other chronic pain G89.29 ; Hyperlipidemia E78.5 and Polyneuropathy G62.9 [facility] [id number] [place] [address] 64933- 6242 Dec, [facility] [id number] [place] [address] 32603- 9050 November, Chronic pain G89.29 [facility] [id number] [place] [address] 39415- 3819 November, [facility] [id number] [place] [address] 55167- 0368 November, Chronic pain G89.29 ; Stye H00.019 ; Insomnia G47.00 ; Leg cramps R25.2 and GERD (gastroesophageal reflux disease) K21.9 [place] [id number] [place] [address] 22736- 3483 Oct, Other chronic pain G89.29 [facility] [facility] [address] 38567- 8908 Oct, Hyperlipidemia E78.5 [facility] [facility] [address] 78156- 6461 Sep, Essential (primary) hypertension I10 [place] [address] 81818- 1008 30 Sep, 2015 Other chronic pain G89.29 ; Polyneuropathy G62.9 ; Essential (primary) hypertension I10 and Personal history of transient ischemic attack (TIA), 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 [facility] [id number] [place] [address] 58344- 6867 Sep, [place] [address] 24535- 4355 Sep, [place] [id number] [place] [address] 41481- 2249 Aug, [facility] [id number] [place] [address] 50010- 9129 Jul, [facility] [id number] [place] [address] 51359- 4510 Jul, [place] [address] 46464- 9152 Jun, Other chronic pain G89.29 and Gastroesophageal reflux disease, esophagitis presence not specified K21.9 [place] [id number] [place] [address] 22601- 8611 May, Chronic pain syndrome 338.4 and Polyneuropathy G62.9 [facility] [place] [id number] [place] [address] 96045- 7845 11 May, 2015 Enlarged prostate with lower urinary tract symptoms N40.1 ; Other retention of urine R33.8 and Peripheral polyneuropathy G62.9 [facility] [id number] [place] [address] 46026- 0435 14 Apr, 2015 [facility] [id number] [place] [address] 861609- 0540 16 Mar, 2015 [facility] [id number] [place] [address] 182135- 9545 Mar, Neuropathy 355.9 and Chronic pain 338.29 [facility] [id number] [place] [address] 33340- 1603 Feb, Neuropathy 355.9 and TIA (transient ischemic attack) 435.9 [place] [id number] [place] [address] 75121- 8254 Dec, Neuropathy 355.9 ; Chronic pain 338.29 ; Restless legs 333.94 ; Seborrheic keratoses 702.19 and GERD (gastroesophageal reflux disease) 530.81 [place] [place] [id number] [place] [address] 81666- 5427 Dec, [facility] [id number] [place] [address] 64083- 8391 14 Oct, 2014 [facility] [id number] [place] [address] 81669- 5172 Oct, [facility] [id number] [place] [address] 49764- 4905 Sep, [facility] [address] 419302- 0268 Sep, [facility] [id number] [place] [address] [id number]- 7346 Sep, [facility] [id number] [place] [address] 960324- 0164 Sep, [facility] [id number] [address]- 1800 Aug, [facility] [address] [facility] [id number] [address]- 6012 Aug, [facility] [id number] [address]- 2845 Jul, [facility] [address] [facility] [id number] [address]- 1485 Jul, [facility] [address] [facility] [id number] [address]- 1455 Jul, [facility] [address] [address]- 9881 Jul, [facility] [address] [address]- 1631 Jul, [facility] [address] [address]- 8074 Jul, [facility] [address] [address]- 8380 Jul, [facility] [address] [address]- 2378 Jul, [facility] [id number] [address]- 9332 Jun, [facility] [id number] [address]- 8509 Jun, IMMUNIZATIONS No Known Immunizations SOCIAL HISTORY Never Assessed REASON FOR VISIT Refill request PLAN OF CARE VITAL SIGNS MEDICATIONS Medication Instructions Dosage Frequency Start Date End Date Duration Status Hydrocodone-Acetaminophen 10-325 MG Orally twice a day 1 tablet as needed 12h Jul, 28 days Active Wrist Splint/Cock-Up/Left L - as directed Jul, lifetime Active Rollator Wheeled walker with seat for use while ambulating Jul, lifetime Active RESULTS No Results PROCEDURES No Known [...]
--- OUTSIDE RECORDS SUMMARY | 2018-10-16 09:04 | XMS REPORT ---
Author Author RADHIKA CERVANTES Organization [facility] Address [address] [place] [address] Care Team Providers Care Glove Cutter Name Role Phone RADHIKA CERVANTES Unavailable PROBLEMS Type Condition ICD9-CM Code PIX60-IC Code Onset Dates Condition Status SNOMED Code Problem Leg cramps R25.2 Active 895342260 Problem Chronic pain G89.29 Active 98931213 Problem Stye H00.019 Active 2093494 Problem Numbness of left hand R20.0 Active 576625951 Problem Gastro-esophageal reflux disease without esophagitis K21.9 Active 274265835 Problem Primary insomnia F51.01 Active 4637866 Problem Insomnia G47.00 Active 776207244 Problem Goiter E04.9 Active 1784329 Problem Transient cerebral ischemia, unspecified type G45.9 Active 105651193 Problem Eye exam, routine Z01.00 Active 329366586 Problem Other insomnia G47.09 Active 417997069 Problem Polyneuropathy G62.9 Active 08787301 Problem Essential (primary) hypertension I10 Active 46761303 Problem Other headache syndrome G44.89 Active 402759394 Problem Personal history of transient ischemic attack (TIA), 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 Active 395431121 Problem Glaucoma of both eyes, unspecified glaucoma H40.9 Active 58853619 Problem Hyperlipidemia E78.5 Active 39459864 ALLERGIES No Information ENCOUNTERS Encounter Location Date Diagnosis [facility] [id number] [address] Sep, Chronic pain G89.29 [facility] [id number], [place] [address] Sep, Polyneuropathy G62.9 ; Chronic pain G89.29 and Gastro- esophageal reflux disease without esophagitis K21.9 [facility] [id number] [place] [address] 27702- 6147 Sep, Chronic pain G89.29 [facility] [address] [address] Jul, [facility] [id number] [place] [address] 95551- 8899 Jul, Chronic pain G89.29 ; Polyneuropathy G62.9 and Numbness of left hand R20.0 [facility] [id number] [place] [address] 83328- 8974 Jul, Chronic pain G89.29 ; Polyneuropathy G62.9 ; Gastro- esophageal reflux disease without esophagitis K21.9 ; Numbness of left hand R20.0 and Primary insomnia F51.01 [facility] [id number] [place] [address] 61042- 7677 Jul, Chronic pain G89.29 [facility] [id number] [place] [address] 60018- 1298 Jun, Chronic pain G89.29 [facility] [id number] [place] [address] 32191- 2235 May, Chronic pain G89.29 [facility] [id number] [place] [address] 55722- 3786 Apr, Chronic pain G89.29 [facility] [id number] [place] [address] 02137- 7820 Apr, Chronic pain G89.29 and Polyneuropathy G62.9 [facility] [id number] [place] [address] 79545- 3260 Mar, Chronic pain G89.29 [facility] [id number] [place] [address] 56823- 9923 Feb, Chronic pain G89.29 [facility] [id number] [place] [address] 04399- 2554 Feb, Chronic pain G89.29 [facility] [id number] [place] [address] 45011 2546 Jan, Goiter E04.9 [facility] [id number] [place] [address] 12247 2546 Jan, Chronic pain G89.29 ; Hyperlipidemia E78.5 ; Essential ( primary) hypertension I10 ; Anuria R34 and Goiter E04.9 [facility] [id number] [place] [address] 94187 2542 Jan, Chronic pain G89.29 [facility] [id number] [place] [address] 83146 2546 November, Chronic pain G89.29 [facility] [id number] [place] [address] 29130 2546 November, [facility] [address] 25428- 2395 Oct, Chronic pain G89.29 [facility] [id number] [place] [address] 45960 2545 Oct, Chronic pain G89.29 and Primary insomnia F51.01 [facility] [id number] [place] [address] 93856 2546 Sep, Chronic pain G89.29 [facility] [id number] [place] [address] 57910- 5176 Sep, [facility] [id number] [place] [address] 37150 2540 Sep, Chronic pain G89.29 and Primary insomnia F51.01 [facility] [id number] [place] [address] 75574 2546 Sep, [facility] [id number] [place] [address] 37959 2545 Sep, Transient cerebral ischemia, unspecified type G45.9 ; Acute midline low back pain without sciatica M54.5 and Seborrheic keratosis L82.1 [facility] [id number] [place] [address] 50255- 6179 Sep, Chronic pain G89.29 [facility] [id number] [place] [address] 12206- 4653 Aug, Chronic pain G89.29 and Primary insomnia F51.01 [facility] [address] 43627- 9296 Aug, Chronic pain G89.29 [facility] [id number] [place] [address] 07078- 7816 Jul, Chronic pain G89.29 and Primary insomnia F51.01 [id number] [place] [address] 21338- 7453 Jul, Chronic pain G89.29 [facility] [id number] [place] [address] 49547- 7094 Jun, Chronic pain G89.29 ; Essential (primary) hypertension I10 ; Polyneuropathy G62.9 ; Drug-induced constipation K59.03 and Primary insomnia F51.01 [place] [id number] [place] [address] 74952- 6415 Jun, Chronic pain G89.29 [place] [facility] [id number] [place] [address] 75067- 6115 Jun, [facility] [id number] [place] [address] 94749- 0512 Jun, Insomnia G47.00 ; Chronic pain G89.29 and Seborrheic keratosis L82.1 [place] [id number] [place] [address] 98514- 0872 Apr, Chronic pain G89.29 [facility] [id number] [place] [address] 12772- 4890 Mar, Chronic pain G89.29 [facility] [id number] [place] [address] 33290- 5464 Feb, Chronic pain G89.29 [facility] [id number] [place] [address] 41924- 9710 Jan, Chronic pain G89.29 [facility] [id number] [place] [address] 09380- 8878 Dec, [facility] [address] 44096- 4449 Dec, Chronic pain G89.29 [address] [address] 41464- 2935 13 Dec, 2015 Other chronic pain G89.29 ; Hyperlipidemia E78.5 and Polyneuropathy G62.9 [place] [address] 71937- 7027 Dec, [place] [address] 23323- 7863 November, Chronic pain G89.29 [facility] [id number] [place] [address] 55545- 9603 November, [place] [address] 73489- 5379 November, Chronic pain G89.29 ; Stye H00.019 ; Insomnia G47.00 ; Leg cramps R25.2 and GERD (gastroesophageal reflux disease) K21.9 [facility] [id number] [place] [address] 43951- 3077 Oct, Other chronic pain G89.29 [facility] [id number] [place] [address] 27709- 5809 Oct, Hyperlipidemia E78.5 [facility] [id number] [place] [address] 19924- 8604 Sep, Essential (primary) hypertension I10 [facility] [address] 66288- 1217 Sep, Other chronic pain G89.29 ; Polyneuropathy G62.9 ; Essential (primary) hypertension I10 and Personal history of transient ischemic attack (TIA), 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 [facility] [id number] [place] [address] 75045- 2966 Sep, [facility] [id number] [place] [address] 49117- 3925 Sep, [facility] [id number] [place] [address] 08337- 4606 Aug, [facility] [address] 55659- 6423 Jul, [facility] [id number] [place] [address] 37891- 7127 Jul, [facility] [id number] [place] [address] 29122- 3665 Jun, Other chronic pain G89.29 and Gastroesophageal reflux disease, esophagitis presence not specified K21.9 [place] [id number] [place] [address] 71796- 0096 May, Chronic pain syndrome 338.4 and Polyneuropathy G62.9 [id number] [place] [address] 38234- 5261 May, Enlarged prostate with lower urinary tract symptoms N40.1 ; Other retention of urine R33.8 and Peripheral polyneuropathy G62.9 [facility] [id number] [place] [address] 90832- 5881 14 Apr, 2015 [facility] [id number] [place] [address] 23062- 3018 16 Mar, 2015 [facility] [id number] [place] [address] 33784- 7167 Mar, Neuropathy 355.9 and Chronic pain 338.29 [facility] [id number] [place] [address] 59867- 1227 Feb, Neuropathy 355.9 and TIA (transient ischemic attack) 435.9 [facility] [id number] [place] [address] 15892- 5706 Dec, Neuropathy 355.9 ; Chronic pain 338.29 ; Restless legs 333.94 ; Seborrheic keratoses 702.19 and GERD (gastroesophageal reflux disease) 530.81 [facility] [id number] [place] [address] 049924- 0075 Dec, [facility] [id number] [place] [address] 911651- 5792 Oct, [facility] [id number] [place] [address] 98788- 9090 Oct, [facility] [id number] [place] [address] 154417- 9321 Sep, [facility] [id number] [place] [address] 96329- 8495 Sep, [facility] [id number] [place] [address] 93729- 2894 Sep, [facility] [id number] [place] [address] 178244- 4198 Sep, [facility] [id number] [place] [address] 53846- 3701 Aug, [facility] [id number] [place] [address] 718900- 1340 Aug, [facility] [id number] [place] [address] 978627- 2605 Jul, [facility] [id number] [place] [address] 078894- 0182 Jul, [facility] [id number] [place] [address] 08564- 3206 Jul, [facility] [id number] [place] [address] 179916- 2223 Jul, [facility] [address] [facility] [id number] [address]- 8687 Jul, [facility] [address] [facility] [id number] [address]- 0902 Jul, [facility] [address] [facility] [id number] [address]- 5386 Jul, [facility] [address] [facility] [id number] 6904 Jul, [facility] [address] [facility] [id number] [address]- 9834 Jun, [facility] [address] [facility] [id number] [address]- 6984 Jun, IMMUNIZATIONS No Known Immunizations SOCIAL HISTORY Never Assessed REASON FOR VISIT Order for thyroid US PLAN OF CARE VITAL SIGNS MEDICATIONS Unknown Medications RESULTS Name Result Date Reference Range Ultrasound : Thyroid 2017-02-06 PROCEDURES No Known procedures INSTRUCTIONS MEDICATIONS ADMINISTERED [...]
--- OUTSIDE RECORDS SUMMARY | 2018-10-16 09:05 | XMS REPORT ---
Author Author RADHIKA CERVANTES Organization [employer] Address Unknown Phone Unavailable Care Team Providers Care Communications Officer Name Role Phone RADHIKA CERVANTES CP Unavailable Allergies No Known Allergies Problems Problem Type Condition ICD-9 Code Onset Dates Condition Status Problem Neuropathy [...]
--- OUTSIDE RECORDS SUMMARY | 2018-10-16 09:05 | XMS REPORT ---
Author Author RADHIKA CERVANTES [facility] Address [address] [place] [address] Care Team Providers Care Data Specialist Name Role Phone RADHIKA CERVANTES Unavailable PROBLEMS Type Condition ICD9-CM Code [id number] Code Onset Dates Condition Status SNOMED Code Problem Essential (primary) hypertension I10 Active 77395335 Problem Stye H00.019 Active 3082037 Problem Hyperlipidemia E78.5 Active 43789839 Problem Goiter E04.9 Active 5553840 Problem Transient cerebral ischemia, unspecified type G45.9 Active 315961742 Problem Chronic pain G89.29 Active 40036297 Problem Leg cramps R25.2 Active 603075731 Problem Primary insomnia F51.01 Active 0529557 Problem Insomnia G47.00 Active 247839659 Problem Eye exam, routine Z01.00 Active 669692919 Problem Glaucoma of both eyes, unspecified glaucoma H40.9 Active 69874652 Problem Polyneuropathy G62.9 Active 06822365 Problem Other insomnia G47.09 Active 201893270 Problem Gastroesophageal reflux disease, esophagitis presence not specified K21.9 Active 721313229 Problem Other headache syndrome G44.89 Active 312924906 Problem Personal history of transient ischemic attack (TIA), 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
--- OUTSIDE RECORDS SUMMARY | 2018-10-16 09:05 | XMS REPORT ---
Author Author RADHIKA CERVANTES [facility] Address [address] [place] [address] Care Team Providers Care Assisted Living Director Name Role Phone RADHIKA CERVANTES Unavailable PROBLEMS Type Condition ICD9-CM Code ZMM45-TX Code Onset Dates Condition Status SNOMED Code Problem Essential (primary) hypertension I10 Active 80459900 Problem Stye H00.019 Active 7481773 Problem Hyperlipidemia E78.5 Active 61940931 Problem Goiter E04.9 Active 1340371 Problem Transient cerebral ischemia, unspecified type G45.9 Active 048160990 Problem Chronic pain G89.29 Active 01508315 Problem Leg cramps R25.2 Active 691491452 Problem Primary insomnia F51.01 Active 8830668 Problem Insomnia G47.00 Active 306484074 Problem Eye exam, routine Z01.00 Active 434175601 Problem Glaucoma of both eyes, unspecified glaucoma H40.9 Active 88380602 Problem Polyneuropathy G62.9 Active 19041403 Problem Other insomnia G47.09 Active 407104121 Problem Gastroesophageal reflux disease, esophagitis presence not specified K21.9 Active 751833094 Problem Other headache syndrome G44.89 Active 056035518 Problem Personal history of transient ischemic attack (TIA), 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
--- OUTSIDE RECORDS SUMMARY | 2018-10-16 09:05 | XMS REPORT ---
Author Author RADHIKA CERVANTES Organization [facility] Address [address] [place] [address] Care Team Providers Care Telephone Coin Box Collector Name Role Phone RADHIKA CERVANTES Unavailable PROBLEMS Type Condition ICD9-CM Code JXO83-CR Code Onset Dates Condition Status SNOMED Code Problem Leg cramps R25.2 Active 916749355 Problem Chronic pain G89.29 Active 85672826 Problem Stye H00.019 Active 0820171 Problem Numbness of left hand R20.0 Active 134086469 Problem Gastro-esophageal reflux disease without esophagitis K21.9 Active 187253850 Problem Primary insomnia F51.01 Active 3140102 Problem Insomnia G47.00 Active 983465841 Problem Goiter E04.9 Active 0973425 Problem Transient cerebral ischemia, unspecified type G45.9 Active 593008320 Problem Eye exam, routine Z01.00 Active 392941860 Problem Other insomnia G47.09 Active 197849487 Problem Polyneuropathy G62.9 Active 86319218 Problem Essential (primary) hypertension I10 Active 78286492 Problem Other headache syndrome G44.89 Active 244264808 Problem Personal history of transient ischemic attack (TIA), 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 Active 296087445 Problem Glaucoma of both eyes, unspecified glaucoma H40.9 Active 54168467 Problem Hyperlipidemia E78.5 Active 78350241 ALLERGIES No Information ENCOUNTERS Encounter Location Date Diagnosis [facility] [id number] [address] November, Chronic pain G89.29 [facility] [id number] [address] Oct, Chronic pain G89.29 [facility] [id number] [address] Oct, Chronic pain G89.29 [facility] [id number] [place] [address] 31114- 7699 Sep, Chronic pain G89.29 [facility] [id number] [place], [place] [id number] Sep, Polyneuropathy G62.9 ; Chronic pain G89.29 and Gastro- esophageal reflux disease without esophagitis K21.9 [facility] [id number] [place] [address] 62307- 1539 Sep, Chronic pain G89.29 [address] [id number] [place] [address] 52412- 7823 Jul, [address] [address]- [address] Jul, Chronic pain G89.29 ; Polyneuropathy G62.9 and Numbness of left hand R20.0 [address] [facility] [id number] [place] [address] 92845- 0590 Jul, Chronic pain G89.29 ; Polyneuropathy G62.9 ; Gastro- esophageal reflux disease without esophagitis K21.9 ; Numbness of left hand R20.0 and Primary insomnia F51.01 [facility] [facility] [id number] [place] [address] 51921- 4109 Jul, Chronic pain G89.29 [facility] [id number] [place] [address] 83291- 7330 Jun, Chronic pain G89.29 [facility] [id number] [place] [address] 82848- 8867 May, Chronic pain G89.29 [address] [facility] [address] 5[address]39- 8790 Apr, Chronic pain G89.29 [facility] [id number] [place] [address] 28425- 8893 Apr, Chronic pain G89.29 and Polyneuropathy G62.9 [facility] [id number] [place] [address] 42966- 1457 Mar, Chronic pain G89.29 [facility] [id number] [place] [address] 00892- 7109 Feb, Chronic pain G89.29 [facility] [id number] [place] [address] 50440- 2316 Feb, Chronic pain G89.29 [facility] [id number] [place] [address] 06073- 1405 Jan, Goiter E04.9 [facility] [address] [address]- [address] Jan, Chronic pain G89.29 ; Hyperlipidemia E78.5 ; Essential ( primary) hypertension I10 ; Anuria R34 and Goiter E04.9 [facility] [address] 9[address]68- 5200 Jan, Chronic pain G89.29 [facility] [id number] [place] [address] 02543- 9788 November, Chronic pain G89.29 [facility] [id number] [place] [address] 51835- 3752 November, [facility] [id number] [place] [address] 01130- 1913 Oct, Chronic pain G89.29 [facility] [id number] [place] [address] 92422- 0804 Oct, Chronic pain G89.29 and Primary insomnia F51.01 [facility] [id number] [place] [address] 81831- 6829 Sep, Chronic pain G89.29 [facility] [id number] [place] [address] 91218- 2299 Sep, [facility] [id number] [place] [address] 14383- 9332 Sep, Chronic pain G89.29 and Primary insomnia F51.01 [facility] [id number] [place] [address] 69223- 6295 Sep, [facility] [id number] [place] [address] 48589- 6428 Sep, Transient cerebral ischemia, unspecified type G45.9 ; Acute midline low back pain without sciatica M54.5 and Seborrheic keratosis L82.1 [facility] [id number] [place] [address] 70421- 2131 Sep, Chronic pain G89.29 [address] [facility] [id number] [place] [address] 30745- 9767 Aug, Chronic pain G89.29 and Primary insomnia F51.01 [facility] [facility] [id number] [place] [address] 33763- 0596 Aug, Chronic pain G89.29 [address] [facility] [id number] [place] [address] 13706- 3469 Jul, Chronic pain G89.29 and Primary insomnia F51.01 [facility] [id number] [place] [address] 78863- 0938 Jul, Chronic pain G89.29 [facility] [facility] [id number] [place] [address] 85784- 6265 Jun, Chronic pain G89.29 ; Essential (primary) hypertension I10 ; Polyneuropathy G62.9 ; Drug-induced constipation K59.03 and Primary insomnia F51.01 [address] [facility] [id number] [place] [address] 51814- 7586 Jun, Chronic pain G89.29 [facility] [id number] [place] [address] 19789- 9926 Jun, [facility] [id number] [place] [address] 74664- 0484 Jun, Insomnia G47.00 ; Chronic pain G89.29 and Seborrheic keratosis L82.1 [facility] [id number] [place] [address] 89861- 6045 Apr, Chronic pain G89.29 [facility] [id number] [place] [address] 20056- 6593 Mar, Chronic pain G89.29 [facility] [address] [address]87- 1587 Feb, Chronic pain G89.29 [facility] [address] 26[address]- 6209 Jan, Chronic pain G89.29 [facility] [address] 7[address]22- 3167 Dec, [address] 97568- 9862 Dec, Chronic pain G89.29 [facility] [address] 60017- 4620 Dec, Other chronic pain G89.29 ; Hyperlipidemia E78.5 and Polyneuropathy G62.9 [address] [id number] [place] [address] 68419- 4632 Dec, [address] [address] 44130- 7982 November, Chronic pain G89.29 [facility] [id number] [place] [address] 40068- 6398 November, [address] 45577- 5217 November, Chronic pain G89.29 ; Stye H00.019 ; Insomnia G47.00 ; Leg cramps R25.2 and GERD (gastroesophageal reflux disease) K21.9 [address] [address] 13279- 4012 Oct, Other chronic pain G89.29 [facility] [id number] [place] [address] 50907- 0809 Oct, Hyperlipidemia E78.5 [facility] [id number] [place] [address] 09677- 9190 31 Sep, 2015 Essential (primary) hypertension I10 [facility] [address] 8[address]25- 8710 30 Sep, 2015 Other chronic pain G89.29 ; Polyneuropathy G62.9 ; Essential (primary) hypertension I10 and Personal history of transient ischemic attack (TIA), 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 [facility] [id number] [place] [address] 44513- 1671 Sep, [facility] [id number] [place] [address] 67203- 9211 Sep, [facility] [id number] [place] [address] 64461- 9317 Aug, [facility] [id number] [place] [address] 20971- 1091 Jul, [facility] [id number] [place] [address] 44176- 5894 Jul, [facility] [id number] [place] [address] 07518- 0131 Jun, Other chronic pain G89.29 and Gastroesophageal reflux disease, esophagitis presence not specified K21.9 [facility] [id number] [place] [address] 81814- 2700 May, Chronic pain syndrome 338.4 and Polyneuropathy G62.9 [facility] [id number] [place] [address] 30566- 9057 May, Enlarged prostate with lower urinary tract symptoms N40.1 ; Other retention of urine R33.8 and Peripheral polyneuropathy G62.9 [address] [place] [address]- 6616 14 Apr, 2015 [facility] [id number] [place] [address] 14554- 6466 16 Mar, 2015 [facility] [id number] [place] [address] 47825- 2546 Mar, Neuropathy 355.9 and Chronic pain 338.29 [facility] [id number] [place] [address] 07731- 3865 Feb, Neuropathy 355.9 and TIA (transient ischemic attack) 435.9 [facility] [id number] [place] [address] 97856- 0995 Dec, Neuropathy 355.9 ; Chronic pain 338.29 ; Restless legs 333.94 ; Seborrheic keratoses 702.19 and GERD (gastroesophageal reflux disease) 530.81 [facility] [id number] [place] [address] 26639- 1830 Dec, [facility] [id number] [place] [address] 23277- 5625 Oct, [facility] [id number] [place] [address] 97670- 6599 Oct, [facility] [id number] [place] [address] 36403- 2646 Sep, [facility] [id number] [place] [address] 51601- 7996 Sep, [facility] [id number] [place] [address] 07419 2549 Sep, [facility] [id number] [place] [address] 85196- 2221 Sep, [facility] [id number] [place] [address] 49194- 8226 Aug, [facility] [id number] [place] [address] 45457- 0146 Aug, [facility] [id number] [address]- 6279 Jul, [facility] [address] [address]- 0481 Jul, [facility] [address] [address]- 1969 Jul, [facility] [address] [address]- 9492 Jul, [facility] [address] [address] 9007 Jul, [facility] [address] [address]- 2873 Jul, [facility] [address] [address]- 3056 Jul, [facility] [address] [address]- 8488 Jul, [facility] [address] [address]- 6201 Jun, [facility] [address] [address] 7572 Jun, IMMUNIZATIONS No Known Immunizations SOCIAL HISTORY Never Assessed REASON FOR VISIT Controlled Med Refill 06/28/17 PLAN OF CARE VITAL SIGNS MEDICATIONS Medication Instructions Dosage Frequency Start Date End Date Duration Status Percocet 10-325 MG Orally 2 times a day 1 tablet as needed 12h Jun, 28 days Active Fentanyl 37.5 MCG/HR Transdermal [...]
--- OUTSIDE RECORDS SUMMARY | 2018-10-16 09:05 | XMS REPORT ---
Author Author RADHIKA CERVANTES Organization [employer] Address Unknown Phone Unavailable Care Team Providers Care Wood Science Professor Name Role Phone RADHIKA CERVANTES CP Unavailable Allergies, Adverse Reactions, Alerts Substance Reaction Event Type Lyrica Info Not Available Drug Allergy Problems Problem Type Condition ICD-9 Code Onset Dates Condition Status Assessment Chronic pain 338.29 Active Problem Neuropathy 355.9 Active Problem 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], 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 Active Problem TIA (transient ischemic attack) 435.9 Active Problem Headache 784.0 Active Assessment Neuropathy 355.9 Active Problem Unspecified hereditary and idiopathic peripheral neuropathy 356.9 Active Problem Essential hypertension, malignant 401.0 Active Medications Medication Code System Code Instructions Start Date End Date Status Dosage Embeda [facility] [address]-06 30-1.2 MG Orally Once a day Feb 11, 2015 Apr 11, 2015 1 capsule Aspir-81 [facility] [address]-50 81 MG Orally Once a day 1 tablet Procedures Procedure Coding System Code Date Office Visit, Est Pt., Level 3 CPT-4 76801 Mar 12, 2015 Vital Signs Date/Time: Mar 12, 2015 Temperature 99.0 F Weight 167.5 lbs Height 73 in BMI 22.10 Index Blood Pressure Diastolic 84 mmHg Blood Pressure Systolic 146 mmHg Cardiac Monitoring Heart Rate 62 bpm Results No Known Results Summary Purpose [employer] Submission
--- OUTSIDE RECORDS SUMMARY | 2018-10-16 09:05 | XMS REPORT ---
Author RAVI Franco [facility] [employer] Address Unknown Phone Unavailable Care Team Providers Care Robotype Operator Name Role Phone RAVI PRICE CP Unavailable Allergies, Adverse Reactions, Alerts Substance Reaction Event Type Lyrica Info Not Available Drug Allergy Problems Problem Type Condition Code Onset Dates Condition Status Assessment Polyneuropathy G62.9 Active Problem Headache 784.0 Active Assessment Chronic pain syndrome 338.4 Active Problem Polyneuropathy G62.9 Active Problem TIA (transient ischemic attack) 435.9 Active Problem Chronic pain syndrome 338.4 Active Problem Unspecified hereditary and idiopathic peripheral neuropathy 356.9 Active Problem Essential hypertension, malignant 401.0 Active Problem Neuropathy 355.9 Active Problem 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], 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 Active Medications Medication Code System Code Instructions Start Date End Date Status Dosage Amitriptyline HCl [facility] [address]-76 25 MG Orally Once a day at bedtime Jun 01, 2015 1 tablet Morphine Sulfate ER [facility] [address]-53 15 MG Orally every 12 hrs Jun 01, 2015 1 tablet Procedures Procedure Coding System Code Date No Charge CPT-4 81954 Jun 01, 2015 DRUG SCREEN NON TLC DEVICES CPT-4 91182 Jun 01, 2015 Office Visit, Est Pt., Level 4 CPT-4 67905 Jun 01, 2015 Vital Signs Date/Time: Jun 01, 2015 Temperature 98.7 F Weight 170.7 lbs Height 73 in BMI 22.52 Index Blood Pressure Diastolic 92 mmHg Blood Pressure Systolic 158 mmHg Cardiac Monitoring Heart Rate 80 bpm Results Name Result Date Reference Range Unit Abnormality Flag [employer] Summary Purpose [employer] Submission
--- OUTSIDE RECORDS SUMMARY | 2018-10-16 09:05 | XMS REPORT ---
Author Author RADHIKA CERVANTES Organization [facility] Address [address] [place] [address] Care Team Providers Care News Copy Editor Name Role Phone RADHIKA CERVANTES Unavailable PROBLEMS Type Condition ICD9-CM Code MUG47-TO Code Onset Dates Condition Status SNOMED Code Problem Leg cramps R25.2 Active 838308279 Problem Chronic pain G89.29 Active 67337559 Problem Stye H00.019 Active 6625331 Problem Numbness of left hand R20.0 Active 824772854 Problem Gastro-esophageal reflux disease without esophagitis K21.9 Active 226057744 Problem Primary insomnia F51.01 Active 4050488 Problem Insomnia G47.00 Active 881920248 Problem Goiter E04.9 Active 3956039 Problem Transient cerebral ischemia, unspecified type G45.9 Active 002330746 Problem Eye exam, routine Z01.00 Active 757592475 Problem Other insomnia G47.09 Active 032519564 Problem Polyneuropathy G62.9 Active 27725376 Problem Essential (primary) hypertension I10 Active 04240503 Problem Other headache syndrome G44.89 Active 283595415 Problem Personal history of transient ischemic attack (TIA), 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 [id number], [place] [address] Oct, Chronic pain G89.29 [facility] [id number], [place] [address] Sep, Chronic pain G89.29 [facility] [id number], [place] [address] Sep, Polyneuropathy G62.9 ; Chronic pain G89.29 and Gastro- esophageal reflux disease without esophagitis K21.9 [facility] [id number] [place] [address] 47803- 9133 Sep, Chronic pain G89.29 [facility] [id number] [place] [address] 49291- 0663 Jul, [facility] [address] [address] Jul, Chronic pain G89.29 ; Polyneuropathy G62.9 and Numbness of left hand R20.0 [address] [address] [address] Jul, Chronic pain G89.29 ; Polyneuropathy G62.9 ; Gastro- esophageal reflux disease without esophagitis K21.9 ; Numbness of left hand R20.0 and Primary insomnia F51.01 [place] [address] [address] Jul, Chronic pain G89.29 [place] [address] [address] Jun, Chronic pain G89.29 [place] [id number] [place] [address]03- 9815 May, Chronic pain G89.29 [place] [address] [address]- [address]199 Apr, Chronic pain G89.29 [place] [id number] [place] [address] 22407- 5123 Apr, Chronic pain G89.[address] [facility] [id number] [place] [address] Mar, Chronic pain G89.29 [place] [address] [address] Feb, Chronic pain G89.29 [facility] [address] [place] [address] 17342- 3761 Feb, Chronic pain G89.29 [facility] [id number] [place] [address] 66503 2546 Jan, Goiter E04.9 [facility] [id number] [place] [address] 68405- 0977 Jan, Chronic pain G89.29 ; Hyperlipidemia E78.5 ; Essential ( primary) hypertension I10 ; Anuria R[address] [facility] [id number] [place] [address] 83625- 0170 Jan, Chronic pain G89.29 [facility] [id number] [place] [address] 17633- 8243 November, Chronic pain G89.29 [facility] [id number] [place] [address] 56927- [address]19 November, [facility] [id number] [place] [address] 32372- 4774 Oct, Chronic pain G89.29 [facility] [id number] [place] [address] 67413- 9238 Oct, Chronic pain G89.29 and Primary insomnia F51.01 [facility] [id number] [place] [address] 53578- 2351 Sep, Chronic pain G89.29 [facility] [id number] [place] [address] 98591- 2138 Sep, [facility] [id number] [place] [address] 18414- 9427 Sep, Chronic pain G89.29 and Primary insomnia F51.01 [facility] [id number] [place] [address] 79313- 4029 Sep, [facility] [id number] [place] [address] 62813- 8089 Sep, Transient cerebral ischemia, unspecified type G45.9 ; Acute midline low back pain without sciatica M54.5 and Seborrheic keratosis L82.1 [place] [id number] [place] [address] 19356- 0309 Sep, Chronic pain G89.29 [place] [id number] [place] [address] 77836- 5119 Aug, Chronic pain G89.29 and Primary insomnia F51.01 [place] [address] [address]676- 2278 Aug, Chronic pain G89.29 [place] [id number] [place] [address] 29548- 4789 Jul, Chronic pain G89.29 and Primary insomnia F51.01 [place] [address] [address]- 6128 Jul, Chronic pain G89.29 [place] [id number] [place] [address] 31425- 6636 Jun, Chronic pain G89.29 ; Essential (primary) hypertension I10 ; Polyneuropathy G62.9 ; Drug-induced constipation K59.03 and Primary insomnia F51.01 [place] [id number] [place] [address] 37861- 0027 Jun, Chronic pain G89.29 [place] [id number] [place] [address] 95950- 5967 Jun, [place] [id number] [place] [address] 28110- 4393 Jun, Insomnia G47.00 ; Chronic pain G89.29 and Seborrheic keratosis L82.1 [place] [id number] [place] [address] 61948- 5799 Apr, Chronic pain G89.29 [place] [id number] [place] [address] 97434- 9834 Mar, Chronic pain G89.29 [facility] [id number] [place] [address] 02367- 5905 Feb, Chronic pain G89.29 [facility] [id number] [place] [address] 08282- 7751 Jan, Chronic pain G89.29 [facility] [address] [address]- [address] Dec, [facility] [id number] [place] [address] 10182- 1644 Dec, Chronic pain G89.29 [facility] [id number] [place] [address] 69185- 2915 Dec, Other chronic pain G89.29 ; Hyperlipidemia E78.[address] [facility] [id number] [place] [address] 93450- 3538 Dec, [facility] [id number] [place] [address] 48329- 8971 November, Chronic pain G89.29 [facility] [id number] [place] [address] 42620- 1445 November, [facility] [id number] [place] [address] 97054- 3194 November, Chronic pain G89.29 ; Stye H00.019 ; Insomnia G47.00 ; Leg cramps R25.2 and GERD (gastroesophageal reflux disease) K21.9 [facility] [id number] [place] [address] 26306- 2073 Oct, Other chronic pain G89.29 [facility] [id number] [place] [address] 05434- 6483 Oct, Hyper[address] E78.5 [facility] [id number] [place] [address] 93829- 6275 31 Sep, 2015 Essential (primary) hypertension I10 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 [place] [id number] [place] [address] 03510- 4866 16 Sep, 2015 [place] [id number] [place] [address] 39879- 5137 Sep, [place] [address] [address]- [address]120 Aug, [place] [address] [address]- 5832 Jul, [place] [address] [address]- 5611 Jul, [place] [id number] [place] [address] 60487- 7065 Jun, Other chronic pain G89.29 and Gastroesophageal reflux disease, esophagitis presence not specified K21.9 [place] [id number] [place] [address] 09652- 7869 23 May, 2015 Chronic pain syndrome 338.4 and Polyneuropathy G62.9 [place] [id number] [place] [address] 78608- 7058 May, Enlarged prostate with lower urinary tract symptoms N40.1 ; Other retention of urine R33.8 and Peripheral polyneuropathy G62.9 [place] [id number] [place] [address] 65370- 4648 14 Apr, 2015 [place] [id number] [place] [address] 45967- 2192 16 Mar, [id number] [place] [address] 46133- 7537 Mar, Neuropathy 355.[address] Chronic [address] [facility] [id number] [address] Feb, Neuropathy 355.9 and TIA (transient ischemic attack) 435.9 [facility] [id number] [place] [address] 65708- 4166 16 Dec, 2014 Neuropathy 355.9 ; Chronic pain 338.29 ; Restless legs 333.94 ; Seborrheic keratoses 702.19 and GERD (gastroesophageal reflux disease) 530.81 [facility] [id number] [place] [address] 00560- 0302 Dec, [facility] [id number] [place] [address] 07260- 0666 Oct, [facility] [id number] [place] [address] 55337- 8156 Oct, [facility] [id number] [place] [address] 13282- 0533 Sep, [facility] [id number] [place] [address] 344638- 2662 Sep, [facility] [id number] [place] [address] 361498- 6586 Sep, [facility] [address] [address] Sep, [facility] [id number] [place] [address] 08412- 1414 Aug, [facility] [id number], [place] [address] Aug, [facility] [id number] [place] [address] 45413- 2626 Jul, [facility] [id number] [address] Jul, [facility] [address] [place] [address]- 8753 Jul, [facility] [address], [place] [address] Jul, [facility] [address], [place] [address] 2848 Jul, [facility] [address], [place] [address] Jul, [facility] [address], [place] [address] 0292 Jul, [facility] [address] [place] [address] 101702- 1815 Jul, [facility] [address], [place] [address] Jun, [facility] [address], [place] [address]- 9[address] Jun, IMMUNIZATIONS No Known Immunizations SOCIAL HISTORY Never Assessed REASON FOR VISIT Controlled Med Refill 02/08/2017 PLAN OF CARE VITAL SIGNS MEDICATIONS Medication [...]
--- OUTSIDE RECORDS SUMMARY | 2018-10-16 09:06 | XMS REPORT ---
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 Active 303082780 Problem Gastroesophageal reflux disease, esophagitis presence not specified K21.9 Active 139877962 Problem Chronic pain G89.29 Active 23283568 Assessment Seborrheic keratosis L82.1 Jun, Active 454179497 Problem Stye H00.019 Active 8419585 Problem Hyperlipidemia E78.5 Active 18704248 Problem Essential (primary) hypertension I10 Active 48933004 Problem Insomnia G47.00 Active 171012753 Problem Leg cramps R25.2 Active 186304616 Problem Eye exam, routine Z01.00 Active 903261255 Problem Headache 784.0 Active 97836432 Assessment Insomnia G47.00 Jun, Active 686216870 Problem Glaucoma of both eyes, unspecified glaucoma H40.9 Active 47067287 Problem 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], 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 Active 450971491 Problem Neuropathy 355.9 Active 382590280 Problem Essential hypertension, malignant 401.0 Active 85826895 Problem TIA (transient ischemic attack) 435.9 Active 105555869 Problem Unspecified hereditary and idiopathic peripheral neuropathy 356.9 Active 407080261 Problem Polyneuropathy G62.9 Active 50841389 ALLERGIES Substance Reaction Event Type Date Status Lyrica Leg swelling Drug Allergy Jun, Active SOCIAL HISTORY No smoking Hx information available PLAN OF CARE VITAL SIGNS Height 73 in 2016-06-09 Weight 172.3 lbs 2016-06-09 Heart Rate 76 bpm 2016-06-09 Respiratory Rate 18 2016-06-09 BMI 22.73 kg/m2 2016-06-09 Blood pressure systolic 160 mmHg 2016-06-09 Blood pressure diastolic 88 mmHg 2016-06-09 MEDICATIONS Medication Instructions Dosage Frequency Start Date End Date Duration Status Tizanidine HCl 2 MG Orally Once a day at bedtime 1 tablet Active Percocet 10-325 MG Orally 2 times a day 1 tablet as needed 12h Jun, Active Omeprazole 20 mg Orally Once a day 1 capsules 24h Jun, Active Lipitor 20 mg Orally Once a day 1 tablet 24h Oct, 90 days Active Aspir-81 81 MG Orally Once a day 1 tablet 24h Active Fentanyl 25 MCG/HR Transdermal Change every 72 hours 1 patch to skin Sep, 28 days Active RESULTS No Results PROCEDURES Procedure Date Ordered Related Diagnosis Body Site Office Visit, Est Pt., Level 3 Jun 09, 2016 No Charge Jun 09, 2016 IMMUNIZATIONS No Known Immunizations
--- OUTSIDE RECORDS SUMMARY | 2018-10-16 09:06 | XMS REPORT ---
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 Name Role Phone RADHIKA CERVANTES Unavailable PROBLEMS Type Condition ICD9-CM Code IAA28-SH Code Onset Dates Condition Status SNOMED Code Problem Essential (primary) hypertension I10 Active 09265355 Problem Stye H00.019 Active 9540416 Problem Hyperlipidemia E78.5 Active 88315528 Problem Goiter E04.9 Active 0268676 Problem Transient cerebral ischemia, unspecified type G45.9 Active 675836553 Problem Chronic pain G89.29 Active 78460597 Problem Leg cramps R25.2 Active 332199213 Problem Primary insomnia F51.01 Active 8276943 Problem Insomnia G47.00 Active 449385506 Problem Eye exam, routine Z01.00 Active 615735432 Problem Glaucoma of both eyes, unspecified glaucoma H40.9 Active 02420373 Problem Polyneuropathy G62.9 Active 90084823 Problem Other insomnia G47.09 Active 905398660 Problem Gastroesophageal reflux disease, esophagitis presence not specified K21.9 Active 217903112 Problem Other headache syndrome G44.89 Active 819662413 Problem Personal history of transient ischemic attack (TIA), 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 2016-09-23 Request Problem Please note Request Problem Sodium, Serum Potassium, Serum Chloride, Serum Carbon Dioxide, Total Ambig Abbrev BMP8 Default BUN Creatinine, Serum BUN/Creatinine Ratio eGFR If NonAfricn Am eGFR If Africn Am Glucose, Serum Calcium, Serum MRI : Brain w/ and w/o Contrast 2016-09-23 PROCEDURES Procedure Date Ordered Result Body Site BASIC METABOLIC PANEL September 21, 2016 IMMUNIZATIONS No Known Immunizations MEDICAL (GENERAL) HISTORY [...]
--- OUTSIDE RECORDS SUMMARY | 2018-10-16 09:06 | XMS REPORT | Continuity of Care Document ---
Author Organization Unknown Address Unknown Allergies Active Description Code Type Severity Reaction Onset Reported/Identified Relationship to Patient Clinical Status Yes pregabalin [id number] Drug Allergy Unknown N/A 09/24/2014 Medications There is no data. Problems Date Dx Coded Attending Type Code Diagnosis Diagnosed By 07/18/2014 ESTEPHANIA GARCIA APRN V12.54 PERSONAL HISTORY OF TRANSIENT ISCHEMIC ATTACK (TIA) AND CEREBRAL INFARCTION WITHOUT RESIDUAL DEFICITS 07/18/2014 ESTEPHANIA GARCIA APRN V12.54 PERSONAL HISTORY OF TRANSIENT ISCHEMIC ATTACK (TIA) AND CEREBRAL INFARCTION WITHOUT RESIDUAL DEFICITS 08/30/2014 ESTEPHANIA GARCIA APRN 356.9 UNSPECIFIED IDIOPATHIC PERIPHERAL NEUROPATHY 08/30/2014 ESTEPHANIA GARCIA APRN 401.0 HYPERTENSION MALIGNANT ESSENTIAL 08/30/2014 ESTEPHANIA GARCIA APRN 784.0 HEADACHE 09/26/2014 Ot 272.4 HYPERLIPIDEMIA NEC/NOS 09/26/2014 Ot 301.0 PARANOID PERSONALITY 09/26/2014 Ot 305.1 TOBACCO USE DISORDER 09/26/2014 Ot 356.9 IDIO PERIPH NEURPTHY NOS 09/26/2014 Ot 357.81 CHRONIC INFLAMMATORY DEMYELINATING POLYN 09/26/2014 Ot 401.9 HYPERTENSION NOS 09/26/2014 Ot 433.10 CAROTID ARTERY OCCLUSION W O CEREBRAL IN 09/26/2014 Ot 492.8 EMPHYSEMA NEC 09/26/2014 Ot 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 09/26/2014 Ot V03.82 PROPHYLACTIC VACC AGAINST STREPTOCOCCUS 09/26/2014 Ot V10.83 HX-SKIN MALIGNANCY NEC 09/26/2014 Ot V11.3 HX OF ALCOHOLISM 09/26/2014 Ot V12.54 PERSONAL HX OF TIA, CEREBRAL INFARCTION 03/09/2015 RADHIKA CERVANTES Ot 355.8 03/09/2015 RADHIKA CERVANTES Ot V12.54 03/09/2015 RADHIKA CERVANTES Ot V57.1 03/12/2015 RADHIKA CERVANTES Ot 355.8 03/12/2015 RADHIKA CERVANTESP Ot V12.54 03/12/2015 RADHIKA CERVANTESP Ot V57.1 03/12/2015 RADHIKA CERVANTESP Ot 355.8 03/12/2015 RADHIKA CERVANTESP Ot V12.54 03/12/2015 RADHIKA CERVANTSEP Ot V57.1 03/23/2015 RADHIKA CERVANTESP Ot 355.8 03/23/2015 RADHIKA CERVANTESP Ot V12.54 03/23/2015 RADHIKA CERVANTESP Ot V57.1 04/08/2015 RADHIKA CERVANTESP Ot 355.8 MONONEURITIS LEG NOS 04/08/2015 RADHIKA CERVANTESP Ot V12.54 PERSONAL HX OF TIA, CEREBRAL INFARCTION 04/08/2015 RADHIKA CERVANTESP Ot V57.1 PHYSICAL THERAPY NEC 04/09/2015 RADHIKA CERVANTESP Ot G57.81 OTHER SPECIFIED MONONEUROPATHIES OF RIGH 04/09/2015 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 Ot G57.82 OTHER SPECIFIED MONONEUROPATHIES OF LEFT 04/09/2015 RADHIKA CERVANTES Ot Z86.73 PRSNL HX OF TIA (TIA), AND CEREB INFRC W 09/26/2016 RAHDIKA CERVANTESP Ot G45.9 TRANSIENT CEREBRAL ISCHEMIC ATTACK, UNSP 10/07/2016 RADHIKA CERVANTESP Ot G45.9 TRANSIENT CEREBRAL ISCHEMIC ATTACK, UNSP 02/21/2017 RADHIKA CERVANTESP Ot E04.9 NONTOXIC GOITER, UNSPECIFIED 10/09/2018 MARILYN MCDANIEL DO Ot Z01.818 ENCOUNTER FOR OTHER PREPROCEDURAL EXAMIN Procedures Code [place] [address] ROUTINE VENIPUNCTURE 07/21/[address] HEAD/BRAIN W/O DYE 07/21/2014 12112 CBC 07/21/2014 4154991 GFR CALC (RESULT ONLY) 07/21/2014 52793 CMP 07/21/2014 69814 LIPID PANEL 07/21/2014 81120 VITAMIN D 25-HYDROXY (D2,D3 , TOTAL) 07/21/2014 41219 T4 FREE 07/21/2014 11427 VIT B 12 07/21/2014 CARDIOLOG JASMIN OSWALD 10/01/2014 NEUROLOGY ANG BLEVINS 10/02/2014 Results Test Result Range Whole blood basic metabolic panel - 09/23/16 07:07 Serum or plasma sodium measurement (moles/volume) 139 mmol/L 135-145 Serum or plasma potassium measurement (moles/volume) 3.9 mmol/L 3.6-5.0 Serum or plasma chloride measurement (moles/volume) 103 mmol/L 98-107 Carbon dioxide 25 mmol/L 21-32 Serum or plasma anion gap determination (moles/volume) 11 mmol/L 5-14 Serum or plasma urea nitrogen measurement (mass/volume) 13 mg/dL 7-18 Serum or plasma creatinine measurement (mass/volume) 0.88 mg/dL 0.60-1.30 Serum or plasma urea nitrogen/creatinine mass ratio 15 NRG Serum or plasma creatinine measurement with calculation of estimated glomerular filtration rate > NRG Serum or plasma glucose measurement (mass/volume) 97 mg/dL 70-105 Serum or plasma calcium measurement (mass/volume) 9.0 mg/dL 8.5-10.1 TSH+Free T4 - 01/30/17 10:34 TSH 1.910 uIU/mL 0.450-4.500 T4,Free(Direct) 1.19 ng/dL 0.82-1.77 Comp. Metabolic Panel (14) - 01/30/17 10:34 Glucose, Serum 84 mg/dL 65-99 BUN 10 mg/dL 6-24 Creatinine, Serum 0.86 mg/dL 0.76-1.27 eGFR If NonAfricn Am 97 mL/min/1.73 >59 eGFR If Africn Am 112 mL/min/1.73 >59 BUN/Creatinine Ratio 12 9-20 Sodium, Serum 138 mmol/L 134-144 Potassium, Serum 3.8 mmol/L 3.5-5.2 Chloride, Serum 98 mmol/L 96-106 Carbon Dioxide, Total 23 mmol/L 18-29 Calcium, Serum 9.0 mg/dL 8.7-10.2 Protein, Total, Serum 6.9 g/dL 6.0-8.5 Albumin, Serum 4.5 g/dL 3.5-5.5 Globulin, Total 2.4 g/dL 1.5-4.5 A/G Ratio 1.9 1.2-2.2 Bilirubin, Total 0.5 mg/dL 0.0-1.2 Alkaline Phosphatase, S 101 IU/L 39-117 AST (SGOT) 11 IU/L 0-40 ALT (SGPT) 7 IU/L 0-44 Lipid Panel - 01/30/17 10:34 Cholesterol, Total 197 mg/dL 100-199 Triglycerides 192 mg/dL 0-149 HDL Cholesterol 35 mg/dL >39 VLDL Cholesterol Lexa 38 mg/dL 5-40 LDL Cholesterol Calc 124 mg/dL 0-99 CBC - 02/05/18 09:47 WHITE BLOOD CELL COUNT 7.4 Thousand/uL 3.8-10.8 RED BLOOD CELL COUNT 4.98 Million/uL 4.20-5.80 HEMOGLOBIN 15.5 g/dL 13.2-17.1 HEMATOCRIT 45.3 % 38.5-50.0 MCV 91.0 fL 80.0-100.0 MCH 31.1 pg 27.0-33.0 MCHC 34.2 g/dL 32.0-36.0 RDW 13.1 % 11.0-15.0 PLATELET COUNT 172 Thousand/uL 140-400 MPV 10.7 fL 7.5-12.5 ABSOLUTE NEUTROPHILS 3663 cells/uL 4891-8064 ABSOLUTE LYMPHOCYTES 2805 cells/uL 850-3900 ABSOLUTE MONOCYTES 651 cells/uL 200-950 ABSOLUTE EOSINOPHILS 200 cells/uL 15-500 ABSOLUTE BASOPHILS 81 cells/uL 0-200 NEUTROPHILS 49.5 % NRG LYMPHOCYTES 37.9 % NRG MONOCYTES 8.8 % NRG EOSINOPHILS 2.7 % NRG BASOPHILS 1.1 % NRG Encounters ACCT No. Visit Date/Time Discharge Status Pt. Type Provider Facility Loc./Unit Complaint [id number] 10/01/2014 11:04:00 10/01/2014 23:59:59 CLS Outpatient ESTEPHANIA GARCIA APRN [id number] 07/21/2014 07:57:00 07/21/2014 23:59:59 CLS Outpatient ESTEPHANIA GARCIA APRN [id number] 01/31/2017 10:08:00 Document Registration [id number] 07/11/2018 11:00:00 07/11/2018 23:59:59 CLS Outpatient RADHIKA CERVANTES [facility] [id number] 02/05/2018 09:00:00 Document Registration [id number] 10/09/2018 06:21:00 10/09/2018 13:57:00 DIS Outpatient MARILYN MCDANIEL DO [facility] PREOP COLONOSCOPY [id number] 02/06/2017 12:28:00 02/06/2017 23:59:59 CLS Outpatient RADHIKA CERVANTESP [facility] RAD E04.9 GOITER [id number] 09/23/2016 06:58:00 09/23/2016 23:59:59 CLS Outpatient 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 [facility] RAD G45.9 [id number] 04/09/2015 11:17:00 04/09/2015 11:55:00 DIS Outpatient LIVAN CERVANTESA [employer] [facility] REHAB NEUROPATHY IN [place] [id number] 04/06/2015 11:02:00 04/08/2015 00:01:00 DIS Outpatient 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 [facility] REHAB NEUROPATHY IN [place] [id number] 10/16/2018 08:45:00 ACT Outpatient MARILYN MCDANIEL DO [facility] ENDO SCREENING [id number] 09/24/2014 09:19:00 Document Registration
[2018-10-16] MEDS ORDERED: PROPOFOL INJECTION 50 ML IV ONE (09:14)
[2018-10-16] MEDS ORDERED: MIDAZOLAM 2 MG/2 ML (VERSED) VIAL ONE (09:14)
--- NOTE | 2018-10-16 09:22 | Progress Note-Pre Operative ---
Pre-Operative Progress Note H&P Reviewed The H&P was reviewed, patient examined and no changes noted. Date Seen by Provider: Oct 16, 2018 Time Seen by Provider: :21 Date H&P Reviewed: Oct 16, 2018 Time H&P Reviewed: 09:21 Pre-Operative Diagnosis: screening colonoscopy MARILYN MCDANIEL DO Oct 16, 2018 09:22
--- NOTE | 2018-10-16 09:55 | Progress Note-Post Operative ---
Post-Operative Progess Note Surgeon (s)/Milling Machine Operator (s) Surgeon MARILYN MCDANIEL DO Milling Machine Operator: na Pre-Operative Diagnosis screening colonoscopy Post-Operative Diagnosis sigmoid polyps and descending colon polyp Procedure & Operative Findings Date of Procedure 10/16/18 Procedure Performed/Findings colonoscopy c hot bx polypectomy and snare polypectomy x 2 Anesthesia Type per receiving teller Estimated Blood Loss Estimated blood loss (mL): none Specimens/Packing Specimens Removed descending colon polyp, sigmoid polyps x 2 MARILYN MCDANIEL DO Oct 16, 2018 09:55
--- NOTE | 2018-10-16 09:56 | Discharge Inst-Simple/Standard ---
Discharge Inst-Standard Patient Instructions/Follow Up Plan of Care/Instructions/FU: 2 weeks Alessio Activity as Tolerated: Yes Discharge Diet: Regular Diet MARILYN MCDANIEL DO Oct 16, 2018 09:56
[2018-10-16 10:10] VITALS: BP 128/72
[2018-10-16 10:40] VITALS: BP 128/83
[2018-10-16] MEDS ORDERED: MEPERIDINE (DEMEROL) INJ 50 MG/ML IVP ONE (11:15)
[2018-10-16] MEDS ORDERED: ONDANSETRON 4 MG/2 ML (SDV) Z0FRAN IVP PRN (11:15)
[2018-10-16] MEDS ORDERED: morphine INJ 10 MG/ML 1ML (SYR OR VIAL) IVP ONE (11:15)
--- NOTE | 2018-10-16 11:25 | Anesthesia-General Post-Op ---
MAC Patient Condition Mental Status/LOC: Same as Preop Cardiovascular: Satisfactory Nausea/Vomiting: Absent Respiratory: Satisfactory Pain: Controlled Complications: Absent Post Op Complications Complications None Follow Up Care/Instructions Patient Instructions None needed. Anesthesiology Discharge Order Discharge Order Patient is doing well, no complaints, stable vital signs, no apparent adverse anesthesia problems. No complications reported per nursing. SAAD CANNON CRNA Oct 16, 2018 11:25
--- NOTE | 2018-10-16 12:02 | OPERATIVE REPORT ---
DATE OF SERVICE: 10/16/2018 PREOPERATIVE DIAGNOSIS: Screening colonoscopy. POSTOPERATIVE DIAGNOSIS: Sigmoid polyps and descending colon polyp. PROCEDURE: Colonoscopy with hot biopsy polypectomy and snare polypectomy x2. SURGEON: Marilyn Mccallum DO ANESTHESIA: Per GRAIN ELEVATOR MOTOR STARTER. ESTIMATED BLOOD LOSS: None. COMPLICATIONS: None. INDICATIONS: The patient is a 58-year-old male, needing screening colonoscopy. He understands risks and benefits of procedure and wished to proceed with procedure. Consent was signed in the chart. PROCEDURE IN DETAIL: The patient was taken to the endoscopy suite, placed in left lateral recumbent position. Timeout was performed. Digital rectal exam was performed. There were no palpable polyps, masses or ulcerations. The scope was inserted in the rectum and advanced all the way to the cecum with minimal difficulty. There are no polyps, masses or ulcerations within the cecum. Prep was adequate. Scope was then slowly retracted back. There were no polyps, masses or ulcerations in the cecum, ascending, or transverse colon. Within the descending colon, a small polyp was present, which hot biopsy polypectomy was performed. Scope was continued to be slowly retracted back into the sigmoid where there were 2 polyps present, which snare polypectomy was performed on these 2 and obtained for specimen for pathology. Scope was then continued to be slowly retracted back into the rectum, where it was also retroflexed noting no other pathology. The patient tolerated the procedure well without any complications and taken to recovery room in stable condition. RECOMMENDATIONS: The patient will need repeat colonoscopy in 5 years. If he had any issues before that, will be seen at that time. Follow up in 2 weeks to discuss pathology results. If he ever has any issues before the repeat colonoscopy time frame, he should be reevaluated at that time. Job ID: [id number] DocumentID: [id number] Dictated Date: 10/16/2018 09:54:50 Can Runner Date: 10/16/2018 12:01:51 Dictated By: MARILYN MCCALLUM DO
== END 2018-10-16 10:45 | disposition home or self-care (01) ==
LOC: ENDO 08:45
PROVIDERS: ATTEND Surgery
DX: Z12.11 Encounter for screening for malignant neoplasm of colon (principal); D12.4 Benign neoplasm of descending colon; D12.5 Benign neoplasm of sigmoid colon; I10 Essential (primary) hypertension; J44.9 Chronic obstructive pulmonary disease, unspecified; G62.9 Polyneuropathy, unspecified; F17.210 Nicotine dependence, cigarettes, uncomplicated; Z86.73 Personal history of transient ischemic attack (TIA), and cerebral infarction without residual deficits; Z79.899 Other long term (current) drug therapy